=== PATIENT | female | born 1945 | race Caucasian/White ===

== ENCOUNTER 2024-05-03 09:50 | Inpatient (IN) | payer MEDICARE, OTHER, SELFPAY ==
[2024-05-03] VITALS (17 sets, daily range): BP systolic 107–154; BP diastolic 60–74; PULSE 54–118; RESP 18–29; TEMP 36.3–36.8; O2SAT 93–100
--- NOTE | ~2024-05-03 | CT_ITS ---
CT diagnostic chest wo [facility] Ordering provider: Sukhjinder Cruz MD History: 78 years Female with . chf, effusions? . Comparison: None. Technique: CT chest without IV contrast.Radiation reduction technique utilized. DLP is 514.92 mGy. FINDINGS: VISUALIZED THORACIC INLET: Normal. MEDIASTINUM: Aorta/coronary arteries: Mild atheromatous disease. The ascending aorta measures 3.5 cm. Heart/other: The heart is slightly enlarged. Lymph nodes: No mediastinal or hilar adenopathy. LUNGS: Dependent atelectatic changes. Minimal left pleural effusion. Narrowing of the distal trachea and main bronchi is noted. No pulmonary nodules or masses. No pneumothorax. VISUALIZED UPPER ABDOMEN: Sliding hiatus hernia.0 Otherwise, the visualized upper abdomen is normal. MUSCULOSKELETAL: Soft tissues: The superficial soft tissues are normal. Bones: Age appropriate degenerative changes of the spine. Levoscoliosis. IMPRESSION: 1. Minimal left pleural effusion with bilateral atelectatic changes more prominent on the left side. 2. Slight cardiomegaly. Reviewed, dictated and finalized at location A. IMPRESSION: 1. Minimal left pleural effusion with bilateral atelectatic changes more promi nent on the left side. 2. Slight cardiomegaly.
--- NOTE | ~2024-05-03 | XR_ITS ---
XR chest 2V DATE: 05/03/2024 10:20 INDICATION: Shortness of breath. History of COPD. TECHNIQUE: AP and lateral views COMPARISON: None FINDINGS: Cardiomegaly. Aortic calcification. Abdominal aortic calcification. Bilateral lower lung infiltrate and/or atelectasis, left greater than right. Mild pulmonary vascular congestion. No apparent pleural effusion. Osteopenia. Bilateral rotator cuff atrophy. White and screws along the proximal left humerus from old fracture. S coliosis and degenerative changes of the thoracic spine. IMPRESSION: Bilateral lower lung infiltrates and/or atelectasis Cardiomegaly, aortic atherosclerosis Reviewed, dictated and finalized at location A.
--- NOTE | ~2024-05-03 | XR_ITS ---
EXAMINATION: XR chest 1V portable DATE: 05/11/2024 12:29 INDICATION: Congestive heart failure TECHNIQUE: frontal view of the chest was obtained. COMPARISON: Chest radiograph dated 05/03/[address] dated 05/07/2024 FINDINGS: Again seen are linear and bandlike opacities in the bilateral lower lung zones consistent with atelec tasis. New mild increased interstitial pattern in the lower lungs suggesting superimposed mild pulmon neel edema. No pneumothorax or definitive pleural effusion. Cardiomegaly. S-shaped thoracolumbar scoli osis with severe spondylosis. Plain screw fixation for old healed fracture the proximal left humerus. IMPRESSION: 1. Persistent discoid atelectasis in bilateral lower lungs with new increased interstitial pattern co nsistent with mild pulmonary edema. 2. Cardiomegaly. Reviewed, dictated and finalized at location A. IMPRESSION: 1. Persistent discoid atelectasis in bilateral lower lungs with new increased i nterstitial pattern consistent with mild pulmonary edema. 2. Cardiomegaly.
--- NOTE | 2024-05-03 09:58 | ECG_ITS ---
Test Date: 2024-05-03 10:01:37 Measurements Intervals [place] Rate: 66 P: 69 [place]: 121 QRS: -41 QRSD: 145 T: 86 QT: 448 QTc: 470 Interpretive Statements SINUS RHYTHM VENTRICULAR PREEXCITATION/WPW No previous ECG available for comparison Electronically Signed On 05-04-2024 12:54:44 CDT by Jorge Bey M.D.
[2024-05-03 10:08] LABS: Basophils Percent Auto 0.5 % (0.2-1.2); Eosinophils Absolute Auto 0.1 K/mm3 (0-0.3); Eosinophils Percent Auto 0.9 % (0-4.4); Hematocrit 41.8 % (37.0-47.0); Hemoglobin 12.6 g/dL (12.0-15.0); Immature Granulocyte Absolute 0.05 K/mm3 (0.00-0.031); Immature Granulocyte Percent A 0.9 % (0-0.5); Lymphocytes Percent Auto 26.5 % (18.3-44.2); Mean Corpuscular HGB Conc 30.1 g/dl (32-36); Mean Corpuscular Hemoglobin 29.3 pg (26-34); Mean Corpuscular Volume 97.2 fl (80-100); Mean Platelet Volume 11.3 fl (7.4-10.4); Monocytes Absolute Auto 0.5 K/mm3 (0.1-0.6); Neutrophils Absolute Auto 3.5 K/mm3 (1.3-6.7); Neutrophils Percent Auto 62.2 % (45.5-73.1); Platelet Count Result 151 k/mm3 (150-375); Red Cell Distribution Width 14.1 % (11.5-14.5); White Blood Count 5.7 K/mm3 (4.5-10.0)
--- NOTE | 2024-05-03 10:18 | ECG_ITS ---
Test Date: 2024-05-03 10:26:03 Measurements Intervals [place] Rate: 61 P: 62 [place]: 116 QRS: -43 QRSD: 143 T: 81 QT: 460 QTc: 464 Interpretive Statements SINUS RHYTHM WITH SHORT MD INTERVAL ventricular pre-excitation MARKED LEFT AXIS DEVIATION [QRS AXIS < -30] INTRAVENTRICULAR CONDUCTION DELAY [130+ ms QRS DURATION] Compared to ECG 05/03/2024 10:01:37 no change compared to prior EKG Electronically Signed On 05-04-2024 12:55:45 CDT by Jorge Bey M.D.
[2024-05-03 10:21] LABS: INR 1.6
[2024-05-03 10:22] LABS: Partial Thromboplastin Time 30.4 Seconds (22.3-36.8)
[2024-05-03 10:26] LABS: Alanine Aminotransferase 15 U/L (6-35); Albumin Level 3.9 g/dL (3.5-5.1); Alkaline Phosphatase 85 U/L (38-126); Anion Gap 5 mmol/L (4-12); Aspartate Amino Transferase 36 U/L (14-36); Bilirubin,Total 0.9 mg/dL (0.2-1.3); Blood Urea Nitrogen 28 mg/dL (7-17); Calcium 9.1 mg/dL (8.4-10.2); Carbon Dioxide 28 mmol/L (22-30); Chloride 114 mmol/L (98-107); Estimated CRCL calculation 19 ml/min; Estimated Glomerular Filt Rate 18; Glucose 113 mg/dL (65-110); Potassium 4.6 mmol/L (3.4-5.0); Sodium 147 mmol/L (137-145)
[2024-05-03 11:14] LABS: Appearance Urine Cloudy (Clear); Bacteria Urine None Seen /hpf; Bilirubin Urine Negative (Negative); Blood Urine 2+ (Negative); Color Urine Yellow (Yellow); Glucose Urine UA 2+ mg/dL (Negative); Ketones Urine Trace mg/dL (Negative); Leukocyte Esterase Ur Negative LEU/UL (Negative); Mucus Urine Present /lpf; Need Manual Microscopic Reviewed; Nitrate Urine Negative (Negative); Non Pathogenic Casts >20; Protein Urine 4+ mg/dL (Negative); RBC Urine 0-2 /hpf (0-2); Squamous Epithelial Cell Urine Occasional /hpf (Few); WBC Urine 0-5 /hpf (0-3); pH Urine 6.5 (5.0-9.0)
[2024-05-03 11:16] LABS: Add Urine Microscopic? YES
[2024-05-03 12:35] LABS: Alveolar/Arterial O2 Gradient 71.6 mmHg; Base Excess ABG -1.9 mEq/l (+/-2.0); Fractional Inspired Oxygen 30 %; HCO3 ABG 26.2 mEq/l (22.0-26.0); Methemoglobin ABG 0.2 %THb (0-1.5); Oxygen Content ABG 16.8 %vol (16.0-22.0); Oxygen Saturation ABG 91.7 % (95.0-100.0); PO2 ABG 71.8 mmHg (80.0-100.0); PO2 FiO2 Ratio Arterial Blood 2.39 %; Reduced Hemoglobin 6.8 %THb (0-5.0)
[2024-05-03 12:36] LABS: Device NASAL CANNULA; Site Drawn RIGHT BRACHIAL; pH ABG 7.258 (7.350-7.450)
--- NOTE | 2024-05-03 12:56 | ED.SOB ---
HPI - SOB/Dyspnea General Chief Complaint: Shortness of Breath/Dyspnea Stated Complaint: sob Time Seen by Provider: 05/03/24 10:00 History of Present Illness HPI Narrative: patient is a 78-year-old female who presents ER with shortness of breath. Worsening over last couple days. Improved with nebulizer treatment by EMS. Denies fevers or chills or sweat. No productive cough. Has history of COPD. Has been reports patient recently had a UTI and was treated for, however he is concerned that she is not improving because she has been having hallucinations at home and seeing people who were not there. Patient is not currently seeing anything other than the actual people in the room. She does report that she has been more sleepy and foggy lately. reports she has been sleeping 16 hours a day. Related Data Allergies Allergy/AdvReac Type Severity Reaction Status Date / Time Penicillins Allergy Unknown Verified 03/03/09 12:16 Review of Systems Review of Systems: All systems reviewed & are unremarkable except as noted in HPI and below Constitutional: Constitutional: Denies chills, Reports fatigue and Denies fever(s) ENT: Reports system reviewed and no additional complaints, except as documented Cardiovascular: Cardiovascular: Reports no additional cardiovascular complaints Respiratory: Respiratory: Denies chest congestion, Denies cough, Reports dyspnea and Denies wheezing Gastrointestinal: Gastrointestinal: Reports no additional gastrointestinal complaints Musculoskeletal: Musculoskeletal: Reports no additional musculoskeletal complaints [facility] Past Medical History Medical History (Updated 05/03/24 @ 14:08 by Selwyn Enamorado MD) Chronic kidney disease COPD (chronic obstructive pulmonary disease) CVA (cerebral vascular accident) GERD (gastroesophageal reflux disease) Hyperlipidemia Hypertension Surgical History Surgical History (Updated 05/03/24 @ 13:02 by Selwyn Enamorado MD) H/O shoulder surgery Exam Narrative: GENERAL: chronically ill-appearing, obese, and in no acute distress. HEAD: Normocephalic, atraumatic. ENT: Mucous membranes moist. CHEST: Clear to auscultation. No respiratory distress. HEART: Regular rate and rhythm. Normal peripheral pulses. ABDOMEN: Soft, nontender, nondistended. EXTREMITIES: Normal range of motion. No edema. SKIN: Warm, dry, no rash. NEURO: Alert and oriented x3. PSYCH: Normal mood and affect. Course Course Emergency Course: patient will be admitted hospital for hypercapnia. Patient hypoxic when sleeping down to 82%. She easily awakens with being shaken and answers questions appropriately. Vital Signs Vital signs: Vital Signs Temperature 97.6 F 05/03/24 09:51 Pulse Rate 65 05/03/24 09:51 Respiratory Rate 19 05/03/24 09:51 Blood Pressure 125/74 05/03/24 09:51 Pulse Oximetry 100 05/03/24 09:51 Oxygen Delivery Room Air 05/03/24 09:51 Temperature 97.6 F 05/03/24 09:51 Pulse Rate 65 05/03/24 12:57 Respiratory Rate 18 05/03/24 12:57 Blood Pressure 133/74 05/03/24 12:57 Pulse Oximetry 99 05/03/24 12:57 Oxygen Delivery BiPAP 05/03/24 12:45 Oxygen Flow Rate 3 05/03/24 12:35 MDM - SOB/Dyspnea Lab Data 05/03/24 10:02 05/03/24 10:02 Labs: Lab Results 05/03/24 05/03/24 05/03/24 Range/Units 10:02 10:42 12:30 WBC 5.7 (4.5-10.0) K/mm3 RBC 4.30 (4.2-5.4) M/mm3 Hgb 12.6 (12.0-15.0) g/dL Hct 41.8 (37.0-47.0) % MCV 97.2 (80-100) fl MCH 29.3 (26-34) pg MCHC 30.1 L (32-36) g/dl RDW 14.1 (11.5-14.5) % Plt Count 151 (150-375) k/mm3 MPV 11.3 H (7.4-10.4) fl Immature Gran % (Auto) 0.9 H (0-0.5) % Neut % (Auto) 62.2 (45.5-73.1) % Lymph % (Auto) 26.5 (18.3-44.2) % [place] % (Auto) 9.0 H (2.6-8.5) % Eos % (Auto) 0.9 (0-4.4) % Baso % (Auto) 0.5 (0.2-1.2) % Lymph # (Auto) 1.50 (0.9-3.2) K/mm3 [place]
--- NOTE | 2024-05-03 15:23 | PM.IMHP ---
H&P: HPI History of Present Illness Date/Time: 05/03/24 17:00 Chief Complaint: Shortness of breath. Narrative: This is a 78-year-old female with chronic obstructive pulmonary disease, hypertension, hyperlipidemia, chronic kidney disease, stroke, and gastroesophageal reflux disease who presented to the emergency department via EMS from home for evaluation of shortness of breath. She typically gets her care at [facility] and there are no records at this facility for review. The patient provides some history however she is currently on BiPAP. provides additional information. She was recently treated for urinary tract infection however things that it may not have been treated appropriately as the patient has been having hallucinations at home, seeing people who were not there. She has seemed ?foggy lately? and has been sleeping upwards of 16 hours a day. The last couple of days she has seemed to be a bit short of breath from baseline. EMS was summoned and she was administered DuoNeb on the way to the hospital. At the time my evaluation the patient is alert and oriented. She is tolerating the BiPAP mask reluctantly. She denies fever, chills, sweats, headache, neck ache, cold and flu symptoms, chest pain, pleuritic pain, palpitations, abdominal pain, vomiting, and diarrhea. She does still have some mild dysuria and recently finished antibiotics for a UTI. She has not had any falls or head trauma. In the ED: She was afebrile on arrival with stable blood pressures. Initial ABG showed a pH of 7.258, pCO2 60.0, PO2 71.8, HC03 26.2. She has since been placed on BiPAP. Labs were significant for a sodium of 147, potassium 4.6 (specimen mildly hemolyzed), BUN 20, creatinine 2.60, glucose 113. Urine was positive for 4+ protein, 2+ glucose, trace ketones, 2+ blood. Chest x-ray showed bilateral lower lung infiltrates and/or atelectasis, cardiomegaly, and aortic atherosclerosis. She is being admitted in this setting for further treatment. Review of Systems Review of Systems: 12 systems were reviewed and are negative except for as per HPI. [facility] Past Medical History Medical History (Updated 05/04/24 @ 02:27 by Yari Vitale PA-C) Cerebrovascular accident Chronic kidney disease Chronic obstructive pulmonary disease Deep venous thrombosis Gastroesophageal reflux disease Hyperlipidemia Hypertension Obstructive sleep apnea Does not use CPAP. Surgical History Surgical History (Updated 05/04/24 @ 02:26 by Yari Vitale PA-C) History of hysterectomy History of shoulder surgery Family History Family History Mother Dementia Father Myocardial disease Social History Social History Social History: Surrogate medical decision maker: Rodríguez Cardozobob, spouse. Code status: Full code. Smoking status: Never smoker Alcohol intake: never Do You Feel Safe in your Home?: Yes Lack of Transportation: No Lack of Food: Never True Current Housing: I Have Housing Concerned About Future Housing: No Difficulty Paying Gas/Electric Bills: No Difficulty Paying for Meds: No Currently Unemployed: No Education: High School Diploma/GED Difficulty w/ Childcare or Family Care: No Spiritual care concerns: No Meds Home Medications and Allergies Home Medications Medication Instructions Recorded Confirmed Type allopurinol 100 mg tablet 100 mg PO DAILY 05/03/24 05/03/24 History atorvastatin 80 mg tablet 80 mg PO DAILY 05/03/24 05/03/24 History baclofen 10 mg tablet 10 mg PO TID 05/03/24 05/03/24 History calcitriol 0.25 mcg capsule 0.25 mcg PO BID 05/03/24 05/03/24 History ergocalciferol (vitamin D2) 1,250 50,000 unit PO MONTHLY 05/03/24 05/03/24 History mcg (50,000 unit) capsule furosemide 20 mg tablet 20 mg PO DAILY 05/03/24 05/03/24 History gabapentin 300 mg capsule 300 mg PO
--- NOTE | 2024-05-03 16:05 | ADMGEN ---
This patient, Adriana Arechiga, was admitted to IMU Room 202-01. Patient/family oriented to hospital policies and general routines including ID bracelet, bed and alarms, visiting hours, pain management, procedures, bathroom and other care routines, personal items, smoking policy, room service/diet, and visiting hours. Information on how to activate the Rapid Response Team has been discussed. Patient/Family are encouraged to report perceived risks to care and to ask questions if they do not understand what they are told or what they should do.
[2024-05-03 16:16] LABS: Alveolar/Arterial O2 Gradient 28.3 mmHg; Base Excess ABG -1.3 mEq/l (+/-2.0); Fractional Inspired Oxygen 28 %; Oxygen Content ABG 17.7 %vol (16.0-22.0); Oxygen Saturation ABG 96.4 % (95.0-100.0); Oxyhemoglobin 96.3 % THb (90.0-100.0); PO2 ABG 98.7 mmHg (80.0-100.0); PO2 FiO2 Ratio Arterial Blood 3.52 %; Reduced Hemoglobin 2.7 %THb (0-5.0)
[2024-05-03 16:25] LABS: Device BIPAP; Modified Allen's Test Pass; PCO2 ABG 61.6 mmHg (35.0-45.0); Site Drawn RIGHT BRACHIAL; pH ABG 7.259 (7.350-7.450)
[2024-05-03 16:26] LABS: Expiratory Pressure 8 cmH2O
[2024-05-03 16:27] LABS: Inspiratory Pressure 16 cmH2O
[2024-05-04] VITALS (24 sets, daily range): BP systolic 82–152; BP diastolic 54–79; PULSE 59–123; RESP 16–36; TEMP 36.1–37.4; O2SAT 97–100
[2024-05-04] MEDS: SODIUM CHLORIDE 0.9% IV 1,000 ML 100 ML IV CONT (01:19)
[2024-05-04 01:24] LABS: Alveolar/Arterial O2 Gradient 53.4 mmHg; Base Excess ABG -0.8 mEq/l (+/-2.0); Device NON-INVASIVE VENT; Fractional Inspired Oxygen 28 %; HCO3 ABG 26.2 mEq/l (22.0-26.0); Oxygen Content ABG 17.6 %vol (16.0-22.0); Oxygen Saturation ABG 95.1 % (95.0-100.0); Oxyhemoglobin 95.2 % THb (90.0-100.0); PCO2 ABG 53.5 mmHg (35.0-45.0); PO2 ABG 83.1 mmHg (80.0-100.0); PO2 FiO2 Ratio Arterial Blood 2.97 %; Reduced Hemoglobin 3.8 %THb (0-5.0); Site Drawn RIGHT BRACHIAL; Total Hemoglobin 13.1 g/dL (12.0-18.0); pH ABG 7.308 (7.350-7.450)
[2024-05-04 01:25] LABS: Non-Invasive Expiratory Pressure 8 CMH2O; Non-Invasive Inspiratory Pressure 16 CMH2O; Non-Invasive Vent Rate 24 /MIN
[2024-05-04 03:33] LABS: Anion Gap 8 mmol/L (4-12); Blood Urea Nitrogen 23 mg/dL (7-17); Calcium 8.9 mg/dL (8.4-10.2); Carbon Dioxide 24 mmol/L (22-30); Chloride 116 mmol/L (98-107); Estimated CRCL calculation 21 ml/min; Estimated Glomerular Filt Rate 21; Glucose 89 mg/dL (65-110); Sodium 148 mmol/L (137-145)
[2024-05-04] MEDS: ATORVASTATIN 40 MG TABLET 80 MG PO (08:43)
[2024-05-04] MEDS: GABAPENTIN 300 MG CAPSULE PO (08:43)
[2024-05-04] MEDS: allopurinoL 100 MG TABLET PO (08:44)
[2024-05-04] MEDS: METOPROLOL SUCCINATE EXT REL 50 MG TABCR PO (08:44)
[2024-05-04] MEDS: PANTOPRAZOLE 40 MG TABLET PO (08:44)
[2024-05-04] MEDS: LOSARTAN POTASSIUM 25 MG TABLET PO (08:44)
[2024-05-04] MEDS: IPRATROPIUM 0.5 MG/ALBUTEROL SULFATE 2.5 MG AMPUL.NEB 3 ML INHALATION ×3 (08:47→19:26)
--- NOTE | 2024-05-04 09:16 | PM.IMPN ---
Progress Note: A&P Assessment and Plan (1) Obstructive sleep apnea: Code(s): G47.33 - Obstructive sleep apnea (adult) (pediatric) Status: Acute (2) Hypertension: Code(s): I10 - Essential (primary) hypertension Status: Acute (3) Chronic kidney disease: Code(s): N18.9 - Chronic kidney disease, unspecified Status: Acute (4) Mild dehydration: Code(s): E86.0 - Dehydration Status: Acute (5) Hypernatremia: Code(s): E87.0 - Hyperosmolality and hypernatremia Status: Acute (6) Acute respiratory failure with hypercapnia: Code(s): J96.02 - Acute respiratory failure with hypercapnia Status: Acute (7) Chronic obstructive pulmonary disease: Code(s): J44.9 - Chronic obstructive pulmonary disease, unspecified Status: Acute Plan This is a 78-year-old female with PMH obesity, COPD, hypertension, hyperlipidemia, history of stroke without residual deficits (on xarelto), GERD, history of DVT, CKD unknown stage. Patient typically gets her care at [facility]. She was recently treated for UTI. reports she has appeared of and foggy sitting upwards of 16 hours a day. 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 EMS summoned and patient administer DuoNeb on the way to hospital. Eventually placed on BiPAP and admitted on 05/03/2024 for acute hypoxic and hypercarbic respiratory failure. # acute hypoxic/hyper cardiac respiratory failure/COPD/respiratory acidosis/RACHELLE noncompliant with CPAP -admitted on BiPAP. Transitioned to 2 L nasal cannula on morning of 05/04/2024. Continue to monitor. Continue scheduled DuoNebs. -on admission 05/03 pCO2 61.6 --> 53.5. Respiratory failure likely progressive due to noncompliance with CPAP with COPD, however no active wheezing. No steroids administered. -Check quad viral screen. Has a dry cough -patient is currently refusing CPAP. She does not use at home because she does not like how it feels. Compliance encouraged. ordered QHS. - reports she was altered at home. Likely secondary to CO2 narcosis. Patient is now A&O x3. -globally weak. Consult PT OT. # hypernatremia/dehydration -due to poor oral intake -147 on admission --> 148 -change isotonic saline to half-normal saline. BMP at 3:00 p.m. # CKD unknown stage -2.6 on admission --> 2.3 -patient making urine. Continue to cycle renal function. Continue fluid resuscitation. -renally dose medications and avoid nephrotoxins. She takes furosemide at home. Will hold this. # essential hypertension -currently at goal. -continue LINE SERVICER medications metoprolol and losartan. Chronic Conditions -history of stroke: Patient reports taking Xarelto for this. Continue atorvastatin 80 mg p.o. q.day -hyperlipidemia: Continue LINE SERVICER status -history of DVT: Continue PT Xarelto 20 mg p.o. q.day -GERD: Continue PT at [facility] F/E/N: Half-normal saline, heart healthy diet GI prophylaxis: Continue [employer] SERV[employer] [facility] DVT prophylaxis: Continue PT Xarelto Lines: Peripheral IV Code Status: Patient wishes to be full code Dispo: Stable on telemetry floor. She is now on nasal cannula. Transfer to medical floor telemetry Medication reconciliation obtained via the following: Verbal confirmation of medications Social Drivers of Health -Living arrangements: Lives at home with -Patient was screened for food insecurity, housing instability, transportation needs, utility difficulties, and interpersonal safety. Social work and consulted, no needs identified. Agents of Abuse -Illicit drug abuse: Denies -ETOH abuse: Denies -Tobacco/nicotine: Denies -Energy drinks: Denies Heart Failure MIPS: Does not have heart failure Note to the patient: The 21st Century Cures Act makes medical notes like these available to patients in the interest of transparency. Please be advised this is a medic
[2024-05-04] MEDS: SODIUM CHLORIDE 0.45% 1,000 ML 100 ML IV CONT (09:44)
[2024-05-04 10:30] LABS: Influenza A QL RT-PCR Negative (Negative); Influenza B QL RT-PCR Negative (Negative); RSV RNA, RT-PCR Negative (Negative); SARS-CoV-2 RNA PCR Negative (Negative)
[2024-05-04 16:14] LABS: Anion Gap 6 mmol/L (4-12); Blood Urea Nitrogen 21 mg/dL (7-17); Calcium 8.8 mg/dL (8.4-10.2); Carbon Dioxide 25 mmol/L (22-30); Chloride 112 mmol/L (98-107); Estimated CRCL calculation 23 ml/min; Estimated Glomerular Filt Rate 23; Glucose 108 mg/dL (65-110); Potassium 3.8 mmol/L (3.4-5.0); Sodium 143 mmol/L (137-145)
--- NOTE | 2024-05-04 16:22 | ECG_ITS ---
Test Date: 2024-05-04 16:26:56 Measurements Intervals [place] Rate: 125 P: 0 [place]: 0 QRS: -50 QRSD: 137 T: 130 QT: 326 QTc: 470 Interpretive Statements ATRIAL FIBRILLATION WITH RAPID VENTRICULAR RESPONSE INTRAVENTRICULAR CONDUCTION DELAY [130+ ms QRS DURATION] POSSIBLE LEFT VENTRICULAR HYPERTROPHY [VOLTAGE CRITERIA PLUS LAE OR QRS WIDENING] INTRAVENTRICULAR CONDUCTION DELAY ABNORMAL ECG Compared to ECG 05/03/2024 10:26:03 ATRIAL FIBRILLATION REPLACES SINUS RHYTHM Electronically Signed On 05-05-2024 15:06:58 CDT by Sathish Larsen M.D.
[2024-05-04 17:10] LABS: Hematocrit 41.2 % (37.0-47.0); Hemoglobin 11.9 g/dL (12.0-15.0); Mean Corpuscular HGB Conc 28.9 g/dl (32-36); Mean Corpuscular Hemoglobin 29.9 pg (26-34); Mean Corpuscular Volume 103.5 fl (80-100); Mean Platelet Volume 11.8 fl (7.4-10.4); Platelet Count Result 146 k/mm3 (150-375); Red Blood Count 3.98 M/mm3 (4.2-5.4); Red Cell Distribution Width 13.9 % (11.5-14.5); White Blood Count 5.9 K/mm3 (4.5-10.0)
[2024-05-04 17:37] LABS: Magnesium 2.2 mg/dL (1.6-2.3)
[2024-05-04] MEDS: RIVAROXABAN 20 MG TABLET PO (17:39)
[2024-05-04 17:42] LABS: Troponin I 0.018 ng/mL (0.000-0.034)
[2024-05-04] MEDS: AMIODARONE 150 MG/D5W 100 ML 150 MG/100 ML BAG 600 MG IV CONT (18:48)
[2024-05-04] MEDS: AMIODARONE 360 MG/D5W 200 ML 360 MG/200 ML BAG 33.33 MG IV CONT (19:05)
--- NOTE | 2024-05-04 19:57 | ECG_ITS ---
Test Date: 2024-05-04 19:57:04 Measurements Intervals [place] Rate: 86 P: 106 [place]: 150 QRS: -44 QRSD: 122 T: 92 QT: 385 QTc: 461 Interpretive Statements SINUS RHYTHM WITH SINUS ARRHYTHMIA LEFT VENTRICULAR HYPERTROPHY AND ST-T CHANGE [VOLTAGE CRITERIA PLUS ST/T ABNORMALITY] INTERVENTRICULAR CONDUCTION DELAY Compared to ECG 05/04/2024 16:29:20 Atrial fibrillation no longer present Electronically Signed On 05-06-2024 11:40:17 CDT by Trinity Aguayo M.D.
--- NOTE | 2024-05-04 20:03 | ECG_ITS ---
Test Date: 2024-05-04 16:29:20 Measurements Intervals [place] Rate: 137 P: 0 [place]: 0 QRS: -50 QRSD: 138 T: 128 QT: 320 QTc: 484 Interpretive Statements ATRIAL FIBRILLATION WITH RAPID VENTRICULAR RESPONSE INTRAVENTRICULAR CONDUCTION DELAY [130+ ms QRS DURATION] POSSIBLE LEFT VENTRICULAR HYPERTROPHY [VOLTAGE CRITERIA PLUS LAE OR QRS WIDENING] INTRAVENTRICULAR CONDUCTION DELAY ABNORMAL ECG Compared to ECG 05/04/2024 16:26:56 No significant changes Electronically Signed On 05-05-2024 15:07:23 CDT by Sathish Larsen M.D.
[2024-05-05] VITALS (30 sets, daily range): BP systolic 107–138; BP diastolic 50–101; PULSE 64–94; RESP 18–36; TEMP 36.4–37.7; O2SAT 90–100
--- NOTE | 2024-05-05 | ECHO_ITS ---
Patient Info Name: Adriana Arechiga Age: 78 years : 1945 Gender: Female Ht: 66 in Wt: 197 lbs BSA: 2.07 m2 HR: 75 bpm BP: 113 / 57 mmHg Heart Rhythm: Sinus Rhythm Technical Quality: Fair Exam Date: 05/05/2024 11:16 AM Exam Location: Echo Lab Patient Status: Inpatient Admit Date: 05/03/2024 Staff Ordering Physician: Adrian Christianson MD Sales Superintendent: America Jackman RDCS Attending Provider: Kaur Rodriguez MD Referring Physician: Sammy RAMIREZ; Exam Type: CA echo doppler color flow Study Info Indications - AF, WPW Complete two-dimensional, color flow and Doppler transthoracic echocardiogram is performed with contrast to opacify the left ventricle and to improve the deliniation of the left ventricle endocardial borders. Contrast/Agitated Saline Contrast/Ag. Saline: Definity Amount: 3.00 ml Administered By: America Jackman RDCS Existing IV Access: Yes IV Access Condition: patent with no signs of infiltration Summary 1. Mild concentric left ventricular hypertrophy with hyperdynamic systolic function and grade 1 diastolic noncompliance. 2. No ischemic wall motion abnormality. 3. Trivial aortic regurgitation. 4. Mild tricuspid regurgitation, PA pressures are normal. Left Ventricle Left ventricular chamber dimension is normal. Left ventricular systolic function is hyperdynamic, estimated at >70%. There is mild concentric increased left ventricular wall thickness. The left ventricular diastolic function is grade I diastolic dysfunction. Right Ventricle Right ventricular chamber dimension is normal. Left Atria Left atrial chamber dimension is normal. Aortic Valve The aortic valve is normal. There is trace aortic valve regurgitation. Pulmonic Valve The pulmonic valve is not well visualized. Mitral Valve The mitral valve has normal leaflets. The mitral valve annulus is moderately calcified. Tricuspid Valve The tricuspid valve leaflets are normal. There is mild tricuspid valve regurgitation. No pulmonary hypertension, estimated pulmonary arterial systolic pressure is 54 mmHg. Pericardium/Pleural The pericardium appears normal. Aorta The aortic root size at the sinus of Valsalva is normal. Left Ventricular Outflow Tract Name Value Normal LVOT 2D LVOT Diameter 2.0 cm LVOT Doppler LVOT Peak Gradient 7 mmHg LVOT Mean Gradient 4 mmHg LVOT VTI 27 cm LVOT VTI/AV VTI Ratio 0.7 LVOT Stroke Volume 82 ml LVOT CO 5.2 l/min LVOT CI 2.5 l/min/m2 Pulmonic Valve Name Value Normal RVOT Doppler RVOT Peak Gradient 3 mmHg PV Doppler PV Peak Gradient 6 mmHg
[2024-05-05] MEDS: AMIODARONE 360 MG/D5W 200 ML 360 MG/200 ML BAG 16.67 MG IV CONT (01:20)
[2024-05-05] MEDS: IPRATROPIUM 0.5 MG/ALBUTEROL SULFATE 2.5 MG AMPUL.NEB 3 ML INHALATION ×2 (02:01→08:39)
[2024-05-05 03:50] LABS: Basophils Percent Auto 0.3 % (0.2-1.2); Eosinophils Percent Auto 0.3 % (0-4.4); Hematocrit 38.9 % (37.0-47.0); Hemoglobin 10.9 g/dL (12.0-15.0); Immature Granulocyte Absolute 0.03 K/mm3 (0.00-0.031); Immature Granulocyte Percent A 0.5 % (0-0.5); Lymphocytes Absolute Auto 0.92 K/mm3 (0.9-3.2); Lymphocytes Percent Auto 15.9 % (18.3-44.2); Mean Corpuscular Hemoglobin 28.8 pg (26-34); Mean Corpuscular Volume 102.9 fl (80-100); Mean Platelet Volume 10.4 fl (7.4-10.4); Monocytes Absolute Auto 0.5 K/mm3 (0.1-0.6); Monocytes Percent Auto 7.8 % (2.6-8.5); Neutrophils Absolute Auto 4.3 K/mm3 (1.3-6.7); Neutrophils Percent Auto 75.2 % (45.5-73.1); Platelet Count Result 116 k/mm3 (150-375); Red Blood Count 3.78 M/mm3 (4.2-5.4); Red Cell Distribution Width 13.9 % (11.5-14.5); White Blood Count 5.8 K/mm3 (4.5-10.0)
[2024-05-05 04:14] LABS: Platelet Estimate Decreased (Adequate)
[2024-05-05 04:15] LABS: Anisocytosis 1+; Hypochromasia 1+; Ovalocytes 1+; Schistocytes None Seen
[2024-05-05 04:20] LABS: Anion Gap 4 mmol/L (4-12); Blood Urea Nitrogen 20 mg/dL (7-17); Calcium 8.3 mg/dL (8.4-10.2); Carbon Dioxide 26 mmol/L (22-30); Chloride 111 mmol/L (98-107); Estimated CRCL calculation 23 ml/min; Estimated Glomerular Filt Rate 23; Glucose 112 mg/dL (65-110); Magnesium 2.3 mg/dL (1.6-2.3); Potassium 4.3 mmol/L (3.4-5.0); Sodium 141 mmol/L (137-145)
[2024-05-05] MEDS: ACETAMINOPHEN 325 MG TABLET 650 MG PO (06:57)
[2024-05-05] MEDS: GABAPENTIN 300 MG CAPSULE PO (10:14)
[2024-05-05] MEDS: METOPROLOL SUCCINATE EXT REL 50 MG TABCR PO (10:15)
[2024-05-05] MEDS: LOSARTAN POTASSIUM 25 MG TABLET PO (10:15)
[2024-05-05] MEDS: allopurinoL 100 MG TABLET PO (10:15)
[2024-05-05] MEDS: ATORVASTATIN 40 MG TABLET 80 MG PO (10:15)
[2024-05-05] MEDS: PANTOPRAZOLE 40 MG TABLET PO (10:15)
--- NOTE | 2024-05-05 10:26 | PM.CNCAR ---
Assessment and Plan Assessment and plan (1) Hypertension: Code(s): I10 - Essential (primary) hypertension Status: Acute Assessment and Plan: Continue metoprolol (2) Acute respiratory failure with hypercapnia: Code(s): J96.02 - Acute respiratory failure with hypercapnia Status: Acute Assessment and Plan: Resulting CO2 retention and altered mental status. Workup per hospitalist and pulmonology (3) Chronic obstructive pulmonary disease: Code(s): J44.9 - Chronic obstructive pulmonary disease, unspecified Status: Acute (4) Atrial fibrillation: Code(s): I48.91 - Unspecified atrial fibrillation Status: Acute Assessment and Plan: Back in sinus rhythm at this point. Patient should remain on anticoagulation the form of Xarelto. She is being treated with Xarelto for DVTs. Regarding her arrhythmia, will stop her amiodarone given her WPW history. She does have a delta wave on initial ECG and a short GA interval consistent with continued pre-excitation. Continue metoprolol succinate. Atrial fibrillation may be brought on by electrolyte imbalance and recent systemic illness/CO2 retention. Recommend outpatient electrophysiology evaluation. If atrial fibrillation becomes a problem in the future, consider direct cardioversion. 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 History of Present Illness History of Present Illness Consult date/time: 05/05/24 10:26 Requesting physician: Kaur Rodriguez MD Consult reason: Other (Tachy arrhythmia) Reason For Visit: hypercapnic encephalopathy,copd Narrative: Reason for consultation: Tachyarrhythmia Date of service 05/05/2024 Requesting provider: Dr. Rodriguez History: Patient is a 78-year-old female who came in because of altered mental state. She had been hallucinating and had decreased level consciousness. She came to the hospital was found to be acidotic with CO2 levels in the 60s. She was started on BiPAP with improvement of her mental status. While on telemetry, patient did go into a wide complex tachycardia which seem to be irregular. 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 Loan Lewis at this point. A initial EKG does have some concern of pre-excitation. Rhythm appears to be atrial fibrillation with rapid ventricular response. Dr. Diane Boyd start the patient on amiodarone and she has since maintained sinus rhythm. She does have some shortness of breath with mild activity even doing things such as walking around the house. She does also have some lower extremity edema. She states that this shortness of breath and edema are not new. She denies any chest pain, syncope, presyncope, paroxysmal nocturnal dyspnea, orthopnea, palpitations. Review of Systems Review of Systems: All systems reviewed & are unremarkable except as noted in HPI and below Constitutional: Constitutional: Denies body ache(s) Eyes: Eyes: Denies blurry vision ENT: Reports Normal hearing present Cardiovascular: Cardiovascular: Denies chest pain and Reports leg edema Respiratory: Respiratory: Reports dyspnea Gastrointestinal: Gastrointestinal: Denies abdominal pain Genitourinary: Genitourinary: Denies hematuria Musculoskeletal: Musculoskeletal: Denies back pain Integumentary/Breasts: Skin/Breast: Denies rash and Denies skin pain Neurologic: Denies Abnormal speech present Psychiatric: Psychiatric: Reports confusion Endocrine: Endocrine: Denies fatigue Hematologic/Lymphatic: Hematologic/Lymphatic: Denies easy bleeding Allergic/Immunologic: Allergic/Immunologic: Denies GI upset with certain foods PMFSH Past Medical History Medical History (Updated 05/05/24 @ 10:37 by Adrian Christianson MD) A
[2024-05-05] MEDS: PERFLUTREN LIPID MICROSPHERES 1.5 ML VIAL DILUTED TO 10 ML TOTAL VOLUME IV PUSH (11:20)
--- NOTE | 2024-05-05 11:49 | PM.IMPN ---
Progress Note: A&P Assessment and Plan (1) Obstructive sleep apnea: Code(s): G47.33 - Obstructive sleep apnea (adult) (pediatric) Status: Acute (2) Hypertension: Code(s): I10 - Essential (primary) hypertension Status: Acute (3) Chronic kidney disease: Code(s): N18.9 - Chronic kidney disease, unspecified Status: Acute (4) Mild dehydration: Code(s): E86.0 - Dehydration Status: Acute (5) Hypernatremia: Code(s): E87.0 - Hyperosmolality and hypernatremia Status: Acute (6) Acute respiratory failure with hypercapnia: Code(s): J96.02 - Acute respiratory failure with hypercapnia Status: Acute (7) Chronic obstructive pulmonary disease: Code(s): J44.9 - Chronic obstructive pulmonary disease, unspecified Status: Acute Plan This is a 78-year-old female with PMH obesity, COPD, hypertension, hyperlipidemia, WPW, history of stroke without residual deficits (on xarelto), GERD, history of DVT, CKD unknown stage. Patient typically gets her care at [facility]. She was recently treated for UTI. reports she has appeared of and foggy sitting upwards of 16 hours a day. Past few days PHYSICAL THER patient appears short of breath. EMS summoned and patient administer DuoNeb on the way to hospital. Eventually placed on BiPAP and admitted on 05/03/2024 for acute hypoxic and hypercarbic respiratory failure. # acute hypoxic/hyper cardiac respiratory failure/COPD/respiratory acidosis/RACHELLE noncompliant with CPAP -admitted on BiPAP. Transitioned to 2 L nasal cannula on morning of 05/04/2024. Now on room air on 05/05/2024. Continue to monitor. DuoNebs switch to ipratropium nebs on 05/05/2024 due to tachycardia. -on admission 05/03 pCO2 61.6 --> 53.5. Respiratory failure likely progressive due to noncompliance with CPAP with COPD, however no active wheezing. No steroids administered. -quad viral screen negative. -patient refuse CPAP at home previously. She continues to state that she hates it she did wear it overnight in the hospital. Multiple times encourage compliance. Also discussed with her . knows she is very difficult to be compliant with this. - reports she was altered at home. Likely secondary to CO2 narcosis. Patient is now A&O x3. -globally weak. Consult PT OT. # hypernatremia/dehydration -due to poor oral intake -resolved status post fluid resuscitation. # CKD unknown stage -2.6 on admission --> 2.3 --> 2.1 -patient making urine. Continue to cycle renal function. Status post fluid resuscitation. Likely has a serum creatinine around low 2s. -renally dose medications and avoid nephrotoxins. PHYSICAL THER takes furosemide. Currently holding due to dehydration. # essential hypertension -currently at goal. -continue PHYSICAL THER medications metoprolol and losartan. # WPW/preexcitation syndrome/a fib -patient follows with Dr. Lewis at [facility]. Obtain last note from the office and there is no significant notation on the WPW. For, patient reports she had an ablation previously which failed. However, patient has been on metoprolol home. She likely had and an aggravation of this due to her RACHELLE noncompliance and hypercapnia and hypoxia on admission. admission EKG with delta wave and short DC/long QRS. On 05/05 the patient entered wide QRS irregular rate in the 130s to 150s. Started on amiodraone and pt converted. - 05/06 Dr. Christianson consultation appreciated. d/c amiodarone. cont metoprolol. cont to monitor. she should f/u with EP outpatient. pending repeat troponin (1st normal) and surface echo. - cont xarelto. a recurrent a fib rhythm should prompt consideration for direct cardioversion. -keep potassium greater than 4 and magnesium greater than 2. Chronic Conditions -history of stroke: Patient reports taking Xarelto for this. Continue atorvastatin 80 mg p.o. q.day -hyperlipidemia: Continue PHYSICAL THER statin -history o
[2024-05-05 12:05] LABS: Troponin I 0.107 ng/mL (0.000-0.034)
--- NOTE | 2024-05-05 12:20 | IVDEFINITY ---
Prior to administration of IV Definity the patient was educated on the risks and benefits of the imaging enhancing agent including potential adverse side effects. The patient verbalized understanding. Allergies were verified. No exclusion criteria were identified and at least one of the following inclusion criteria were met: 1) physician request, 2) patient technically difficult to image (per the [place] [employer] guidelines of two or more segments not discernable within the apical view), or 3) questionable left ventricular function. ?
[2024-05-05] MEDS: IPRATROPIUM BR 0.02% INH SOLN 0.5 MG/2.5 ML VIAL INHALATION ×2 (14:12→20:35)
[2024-05-05] MEDS: RIVAROXABAN 20 MG TABLET PO (19:36)
[2024-05-06] VITALS (28 sets, daily range): BP systolic 115–133; BP diastolic 50–69; PULSE 65–85; RESP 18–25; TEMP 36.4–37.2; O2SAT 24–100
[2024-05-06] MEDS: IPRATROPIUM BR 0.02% INH SOLN 0.5 MG/2.5 ML VIAL INHALATION ×4 (01:47→19:15)
[2024-05-06 05:20] LABS: Hematocrit 37.1 % (37.0-47.0); Hemoglobin 11.2 g/dL (12.0-15.0); Mean Corpuscular HGB Conc 30.2 g/dl (32-36); Mean Corpuscular Hemoglobin 28.7 pg (26-34); Mean Corpuscular Volume 95.1 fl (80-100); Mean Platelet Volume 11.2 fl (7.4-10.4); Platelet Count Result 136 k/mm3 (150-375); White Blood Count 5.5 K/mm3 (4.5-10.0)
[2024-05-06 05:37] LABS: Anion Gap 3 mmol/L (4-12); Blood Urea Nitrogen 19 mg/dL (7-17); Calcium 9.1 mg/dL (8.4-10.2); Carbon Dioxide 31 mmol/L (22-30); Chloride 111 mmol/L (98-107); Estimated CRCL calculation 22 ml/min; Estimated Glomerular Filt Rate 22; Glucose 97 mg/dL (65-110); Magnesium 2.4 mg/dL (1.6-2.3); Potassium 3.4 mmol/L (3.4-5.0); Sodium 145 mmol/L (137-145)
[2024-05-06] MEDS: ONDANSETRON INJ 4 MG/2 ML VIAL IV PUSH (09:20)
[2024-05-06] MEDS: LOSARTAN POTASSIUM 25 MG TABLET PO (09:43)
[2024-05-06] MEDS: allopurinoL 100 MG TABLET PO (09:43)
[2024-05-06] MEDS: PANTOPRAZOLE 40 MG TABLET PO (09:43)
[2024-05-06] MEDS: METOPROLOL SUCCINATE EXT REL 50 MG TABCR PO (09:43)
[2024-05-06] MEDS: ATORVASTATIN 40 MG TABLET 80 MG PO (09:43)
[2024-05-06] MEDS: GABAPENTIN 300 MG CAPSULE PO (09:44)
--- NOTE | 2024-05-06 10:29 | PM.PNCARD ---
Progress Note: A&P Assessment and Plan (1) Atrial fibrillation: Code(s): I48.91 - Unspecified atrial fibrillation Status: Acute Assessment and Plan: Back in sinus rhythm at this point. Patient should remain on anticoagulation in the form of Xarelto. She is being treated with Xarelto for DVTs. Regarding her arrhythmia, will stop her Amiodarone given her WPW history. She does have a delta wave on initial ECG and a short WI interval consistent with continued pre-excitation. Continue metoprolol succinate. Atrial fibrillation may be brought on by electrolyte imbalance and recent systemic illness/CO2 retention. Recommend outpatient electrophysiology evaluation. If atrial fibrillation becomes a problem in the future, consider direct cardioversion. (2) WPW (Eosoh-Tricbubtt-Drvvt syndrome): Code(s): I45.6 - Pre-excitation syndrome Status: Acute Assessment and Plan: History of ablation. As above (3) Hypertension: Code(s): I10 - Essential (primary) hypertension Status: Acute Assessment and Plan: Continue Metoprolol and Losartan (4) Acute respiratory failure with hypercapnia: Code(s): J96.02 - Acute respiratory failure with hypercapnia Status: Acute Assessment and Plan: Resulting CO2 retention and altered mental status. Workup per hospitalist and pulmonology (5) Chronic obstructive pulmonary disease: Code(s): J44.9 - Chronic obstructive pulmonary disease, unspecified Status: Acute Plan Okay to discharge home from my standpoint. Outpatient follow up with patient's primary [employer], Dr. Lily Lewis. Recommendations and plan discussed with Hospitalist. Subjective Date/time seen: 05/06/24 10:29 Interval history: Reason for visit: Atrial fibrillation HPI: Patient is a 78-year-old female who came in because of altered mental state. She had been hallucinating and had decreased level consciousness. She came to the hospital was found to be acidotic with CO2 levels in the 60s. She was started on BiPAP with improvement of her mental status. While on telemetry, patient did go into a wide complex tachycardia which seem to be irregular. 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 Loan Lewis at this point. A initial EKG does have some concern of pre-excitation. Rhythm appears to be atrial fibrillation with rapid ventricular response. Dr. Diane Boyd start the patient on amiodarone and she has since maintained sinus rhythm. She does have some shortness of breath with mild activity even doing things such as walking around the house. She does also have some lower extremity edema. She states that this shortness of breath and edema are not new. She denies any chest pain, syncope, presyncope, paroxysmal nocturnal dyspnea, orthopnea, palpitations. Date of service 05/06: Remains in sinus rhythm. Feeling well today. Hoping to go home. Review of Systems Review of Systems: All systems reviewed & are unremarkable except as noted in HPI and below (HPI) Exam Const: General: comfortable and no acute distress HENMT: Mouth: Yes moist mucous membranes Eyes: General: appearance normal, both eyes and all related structures Sclera: sclerae normal Resp: Effort & Inspection: normal respiratory effort Other: On supplemental oxygen Cardio: Rate: regular rate Rhythm: regular rhythm Skin: General skin exam: normal color Neuro: Speech: normal speech Psych: Mental Status: mental status grossly normal Affect: normal affect Objective Data Vital Signs Vital Signs: Vital Signs - 24 hr 05/05/24 10:46 05/05/24 11:52 05/05/24 12:00 Temperature 36.6 C Pulse Rate 71 Respiratory Rate 22 H Blood Pressure 107/59 L Pulse Oximetry 93 Oxygen Delivery Room Air Room Air Oxygen Flow Rate 05/05/24 12:00 05/05/24 14:12 05/05/24 14:22 Temperature Pulse Rate 72 72
--- NOTE | 2024-05-06 11:19 | PM.IMPN ---
Progress Note: A&P Assessment and Plan (1) Obstructive sleep apnea: Code(s): G47.33 - Obstructive sleep apnea (adult) (pediatric) Status: Acute (2) Hypertension: Code(s): I10 - Essential (primary) hypertension Status: Acute (3) Chronic kidney disease: Code(s): N18.9 - Chronic kidney disease, unspecified Status: Acute (4) Mild dehydration: Code(s): E86.0 - Dehydration Status: Acute (5) Hypernatremia: Code(s): E87.0 - Hyperosmolality and hypernatremia Status: Acute (6) Acute respiratory failure with hypercapnia: Code(s): J96.02 - Acute respiratory failure with hypercapnia Status: Acute (7) Chronic obstructive pulmonary disease: Code(s): J44.9 - Chronic obstructive pulmonary disease, unspecified Status: Acute Plan This is a 78-year-old female with PMH obesity, COPD, hypertension, hyperlipidemia, WPW, history of stroke without residual deficits (on xarelto), GERD, history of DVT, CKD unknown stage. Patient typically gets her care at [facility]. She was recently treated for UTI. reports she has appeared of and foggy sitting upwards of 16 hours a day. 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 EMS summoned and patient administer DuoNeb on the way to hospital. Eventually placed on BiPAP and admitted on 05/03/2024 for acute hypoxic and hypercarbic respiratory failure. # acute hypoxic/hyper cardiac respiratory failure/COPD/respiratory acidosis/RACHELLE noncompliant with CPAP -DuoNebs switch to ipratropium nebs on 05/05/2024 due to tachycardia. -on admission 05/03 pCO2 61.6 --> 53.5. Respiratory failure likely progressive due to noncompliance with CPAP with COPD, however no active wheezing. No steroids administered. -quad viral screen negative. -patient refuse CPAP at home previously. She continues to state that she hates it she did wear it overnight in the hospital. Multiple times encourage compliance. Also discussed with her . knows she is very difficult to be compliant with this. on 05/06/24 pt agrees to use at home, social worker psychiatric consulted to help arrange a machine - reports she was altered at home. Likely secondary to CO2 narcosis. Patient is now A&O x3. -globally weak. Consult PT OT. recommend HHS with PT - placed on NC on 05/05, 05/06 she is requiring BIPAP again. no discharge, ABG in morning, pulm consult. -CXR w/ b/l atelectasis, no cough, fever, or leukocytosis. # hypernatremia/dehydration -due to poor oral intake -resolved status post fluid resuscitation. # CKD unknown stage -2.6 on admission --> 2.3 --> 2.1 --> 2.2 -patient making urine. Continue to cycle renal function. Status post fluid resuscitation. Likely has a serum creatinine around low 2s. -renally dose medications and avoid nephrotoxins. 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 Currently holding due to dehydration. # essential hypertension -currently at goal. -continue CULINARY ARTS INSTRUCTOR medications metoprolol and losartan. # WPW/preexcitation syndrome/a fib -patient follows with Dr. Lewis at [facility]. Obtain last note from the office and there is no significant notation on the WPW. For, patient reports she had an ablation previously which failed. However, patient has been on metoprolol home. She likely had and an aggravation of this due to her RACHELLE noncompliance and hypercapnia and hypoxia on admission. admission EKG with delta wave and short SD/long QRS. On 05/05 the patient entered wide QRS irregular rate in the 130s to 150s. Started on amiodraone and pt converted. - 05/06 Dr. Christianson consultation appreciated. d/c amiodarone. 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 cont to monitor. she should f/u with EP outpatient. - troponin mildly elevated, repeat pending. - cont xarelto. a recurrent a fib rhythm should prompt consideration for direct cardioversion. - keep potassium greater than 4 and magnesium greater than 2. Chronic Conditions -history o
--- NOTE | 2024-05-06 11:25 | PC.NURSE ---
pt requiring more oxygen today, up to 4L. While in room pt's Sp02 dropped to 78%, patient dozing on and off. Put patient back on bipap. Sp02 up to 93% after application. Notified Dr. Rodriguez and respiratory therapy.
[2024-05-06 11:27] LABS: Glucose Point of Care 126 mg/dl (65-105)
[2024-05-06 12:03] LABS: Troponin I 0.068 ng/mL (0.000-0.034)
--- NOTE | 2024-05-06 15:14 | PCPTNOTE ---
Attempted to see patient for PT, however patient refused. Patient reported she wanted to take it easy today and did not want to do any activity with PT. Encouraged patient to participate with PT, however patient continued to refuse.
[2024-05-06] MEDS: POTASSIUM CHLORIDE 20 MEQ ER TABLET PO (16:13)
[2024-05-06] MEDS: RIVAROXABAN 20 MG TABLET PO (16:13)
[2024-05-07] VITALS (27 sets, daily range): BP systolic 93–142; BP diastolic 47–70; PULSE 55–107; RESP 16–33; TEMP 36.4–37.4; O2SAT 96–100
[2024-05-07] MEDS: IPRATROPIUM BR 0.02% INH SOLN 0.5 MG/2.5 ML VIAL INHALATION ×4 (01:30→20:07)
[2024-05-07 04:52] LABS: Anion Gap 2 mmol/L (4-12); Blood Urea Nitrogen 16 mg/dL (7-17); Calcium 8.9 mg/dL (8.4-10.2); Carbon Dioxide 30 mmol/L (22-30); Chloride 110 mmol/L (98-107); Estimated CRCL calculation 25 ml/min; Estimated Glomerular Filt Rate 24; Glucose 96 mg/dL (65-110); Magnesium 2.4 mg/dL (1.6-2.3); Potassium 4.3 mmol/L (3.4-5.0); Sodium 142 mmol/L (137-145)
[2024-05-07 05:20] LABS: Alveolar/Arterial O2 Gradient 49.7 mmHg; Base Excess ABG 1.6 mEq/l (+/-2.0); Carboxyhemoglobin 0.8 % THb (0-2.0); Fractional Inspired Oxygen 28 %; HCO3 ABG 30.4 mEq/l (22.0-26.0); Methemoglobin ABG 0.1 %THb (0-1.5); Oxygen Content ABG 15.7 %vol (16.0-22.0); Oxygen Saturation ABG 89.3 % (95.0-100.0); Oxyhemoglobin 92.7 % THb (90.0-100.0); PO2 ABG 66.5 mmHg (80.0-100.0); PO2 FiO2 Ratio Arterial Blood 2.38 %; Reduced Hemoglobin 6.4 %THb (0-5.0)
[2024-05-07 05:21] LABS: PCO2 ABG 70.7 mmHg (35.0-45.0); pH ABG 7.251 (7.350-7.450)
[2024-05-07 05:22] LABS: Device NON-INVASIVE VENT; Modified Allen's Test Pass; Non-Invasive Expiratory Pressure 8 CMH2O; Non-Invasive Inspiratory Pressure 14 CMH2O; Non-Invasive Vent Rate 22 /MIN; Site Drawn RIGHT RADIAL
--- NOTE | 2024-05-07 08:34 | PM.CNPUL ---
Assessment and Plan Assessment and plan (1) Atrial fibrillation: Code(s): I48.91 - Unspecified atrial fibrillation Status: Acute (2) Obstructive sleep apnea: Code(s): G47.33 - Obstructive sleep apnea (adult) (pediatric) Status: Acute (3) Hypertension: Code(s): I10 - Essential (primary) hypertension Status: Acute (4) Chronic kidney disease: Code(s): N18.9 - Chronic kidney disease, unspecified Status: Acute (5) Acute respiratory failure with hypercapnia: Code(s): J96.02 - Acute respiratory failure with hypercapnia Status: Acute Assessment and Plan: This 78-year-old female presented with acute hypercapnic hypoxemic respiratory failure and atrial fibrillation, with possible congestive heart failure suggested by chest x-ray findings. Regarding the respiratory failure, it appears to be primarily acute and likely related to congestive heart failure. The patient has a known history of obstructive sleep apnea but has not been using CPAP. Although she has never smoked, she was diagnosed with COPD based on pulmonary function testing but has not been receiving treatment with maintenance bronchodilators. I suspect the patient experiences chronic nocturnal hypoxemia due to sleep-disordered breathing and/or kyphosis, which may contribute to cardiac issues such as atrial fibrillation. Her most recent echocardiogram showed evidence of left ventricular diastolic dysfunction with an enlarged left atrium, but no elevated pulmonary artery systolic pressure. Plan: The patient continues to exhibit hypercapnia despite using BiPAP support last night. She will need to use BiPAP support during the day with pressures set at 18/6. A chest CT will be performed to assess for chest congestion and bilateral pleural effusions. (6) Hypercapnic respiratory failure: Code(s): J96.92 - Respiratory failure, unspecified with hypercapnia Status: Acute (7) Chronic obstructive pulmonary disease: Code(s): J44.9 - Chronic obstructive pulmonary disease, unspecified Status: Acute History of Present Illness History of Present Illness Consult date: 05/07/24 Chief complaint: hypercapnic encephalopathy,copd Narrative: This 78-year-old female presented with a few days' history of progressively worsening shortness of breath. She reportedly experienced hallucinations and shortness of breath at home. Her medical history includes hypertension, hyperlipidemia, chronic kidney disease, a previous stroke, GERD, chronic obstructive pulmonary disease (COPD), and sleep apnea. Upon evaluation in the emergency room, the patient was found to have acute respiratory acidosis and was placed on BiPAP support. Further workup revealed atrial fibrillation and congestive heart failure. The patient received BiPAP support with settings of 14/8 pressures, a respiratory rate of 22, and an FiO2 of 28%. With treatment for congestive heart failure and hypercapnic respiratory failure, her respiratory status has improved. When questioned, the patient stated that she has never smoked. Previous pulmonary function testing raised the possibility of COPD, but she has not been on any maintenance bronchodilators. Approximately six months ago, she underwent a sleep study that reportedly showed sleep apnea, and she was placed on CPAP support, which she did not tolerate and subsequently discontinued. She received her pulmonary care at [facility], where she had pulmonary function tests. A chest x-ray on admission showed marked kyphosis and lung congestion related to pulmonary edema. Arterial blood gases initially showed combined acute respiratory and metabolic acidosis. Today's arterial blood gases are more consistent with acute respiratory acidosis, with a pH of 7.25 and a pCO2 of around 70 mmHg. Review of Systems Review of Systems: All systems reviewed & are unremarkable except as noted in HPI and below (HPI and below) [facility]
[2024-05-07] MEDS: PANTOPRAZOLE 40 MG TABLET PO (09:33)
[2024-05-07] MEDS: allopurinoL 100 MG TABLET PO (09:33)
[2024-05-07] MEDS: ATORVASTATIN 40 MG TABLET 80 MG PO (09:33)
[2024-05-07] MEDS: LOSARTAN POTASSIUM 25 MG TABLET PO (09:33)
[2024-05-07] MEDS: METOPROLOL SUCCINATE EXT REL 50 MG TABCR PO (09:33)
[2024-05-07] MEDS: GABAPENTIN 300 MG CAPSULE PO (09:33)
--- NOTE | 2024-05-07 10:21 | PCPTNOTE ---
Attempted to see patient for PT, however patient declined due to wanting to rest at this time.
--- NOTE | 2024-05-07 13:10 | PCOTNOTE ---
Attempted to see Patient this afternoon. Patient refused to participate in any activities, states she needs rest. Per RN, Patient does need to go back on the BiPapp this afternoon. Try back tomorrow.
--- NOTE | 2024-05-07 15:57 | PM.IMPN ---
Progress Note: A&P Assessment and Plan (1) Obstructive sleep apnea: Code(s): G47.33 - Obstructive sleep apnea (adult) (pediatric) Status: Acute (2) Hypertension: Code(s): I10 - Essential (primary) hypertension Status: Acute (3) Chronic kidney disease: Code(s): N18.9 - Chronic kidney disease, unspecified Status: Acute (4) Mild dehydration: Code(s): E86.0 - Dehydration Status: Acute (5) Hypernatremia: Code(s): E87.0 - Hyperosmolality and hypernatremia Status: Acute (6) Acute respiratory failure with hypercapnia: Code(s): J96.02 - Acute respiratory failure with hypercapnia Status: Acute (7) Chronic obstructive pulmonary disease: Code(s): J44.9 - Chronic obstructive pulmonary disease, unspecified Status: Acute Plan This is a 78-year-old female with PMH obesity, COPD, hypertension, hyperlipidemia, WPW, history of stroke without residual deficits (on xarelto), GERD, history of DVT, CKD unknown stage. Patient typically gets her care at [facility]. She was recently treated for UTI. reports she has appeared of and foggy sitting upwards of 16 hours a day. 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 EMS summoned and patient administered DuoNeb on the way to hospital. Eventually placed on BiPAP and admitted on 05/03/2024 for acute hypoxic and hypercarbic respiratory failure. # acute hypoxic/hyper cardiac respiratory failure/COPD/respiratory acidosis/RACHELLE noncompliant with CPAP -DuoNebs switch to ipratropium nebs on 05/05/2024 due to tachycardia. -on admission 05/03 pCO2 61.6 --> 53.5. Respiratory failure likely progressive due to noncompliance with CPAP with COPD, however no active wheezing. No steroids administered. -quad viral screen negative. -patient refuse CPAP at home previously. She continues to state that she hates it she did wear it overnight in the hospital. Multiple times encourage compliance. Also discussed with her . knows she is very difficult to be compliant with this. on 05/06/24 pt agrees to use at home, psychosocial rehabilitation counselor consulted to help arrange a machine - reports she was altered at home. Likely secondary to CO2 narcosis. Patient is now A&O x3. -globally weak. Consult PT OT. recommend HHS with PT -CXR w/ b/l atelectasis, no cough, fever, or leukocytosis. -on 05/07, CT performed, demonstrating bilateral lower lobe atelectasis with small pleural effusion on the left, mild to moderate kyphoscoliosis. Pulmonology recs appreciated. Placed on BiPAP again repeat ABG in 1 hour. Repeat ABG in the morning again. - worried the patient not eating requested he be placed on D5W. D5W at 20 cc/hours to avoid fluid overload. # hypernatremia/dehydration -due to poor oral intake -resolved status post fluid resuscitation. # CKD unknown stage -2.6 on admission --> 2.3 --> 2.1 --> 2.2 -patient making urine. Continue to cycle renal function. Status post fluid resuscitation. Likely has a serum creatinine around low 2s. -renally dose medications and avoid nephrotoxins. 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 Currently holding due to dehydration. # essential hypertension -currently at goal. -continue APPLIANCE ADJUSTER medications metoprolol and losartan. # WPW/preexcitation syndrome/a fib -patient follows with Dr. Lewis at [facility]. Obtain last note from the office and there is no significant notation on the WPW. For, patient reports she had an ablation previously which failed. However, patient has been on metoprolol home. She likely had and an aggravation of this due to her RACHELLE noncompliance and hypercapnia and hypoxia on admission. admission EKG with delta wave and short MN/long QRS. On 05/05 the patient entered wide QRS irregular rate in the 130s to 150s. Started on amiodraone and pt converted. - 05/06 Dr. Christianson consultation appreciated. d/c amiodarone. cont APPLIANCE ADJUSTER metoprolol. cont to monitor. s
[2024-05-07 17:09] LABS: Alveolar/Arterial O2 Gradient 68.7 mmHg; Fractional Inspired Oxygen 28 %; HCO3 ABG 29.4 mEq/l (22.0-26.0); Methemoglobin ABG 0.3 %THb (0-1.5); Oxygen Content ABG 15.4 %vol (16.0-22.0); Oxygen Saturation ABG 88.6 % (95.0-100.0); Oxyhemoglobin 91.8 % THb (90.0-100.0); PCO2 ABG 59.4 mmHg (35.0-45.0); PO2 ABG 60.9 mmHg (80.0-100.0); PO2 FiO2 Ratio Arterial Blood 2.17 %; Reduced Hemoglobin 6.9 %THb (0-5.0); Total Hemoglobin 11.9 g/dL (12.0-18.0); pH ABG 7.312 (7.350-7.450)
[2024-05-07] MEDS: DEXTROSE 5% 1,000 ML 1,000 ML 20 ML IV CONT (17:14)
[2024-05-07] MEDS: RIVAROXABAN 20 MG TABLET PO (17:14)
[2024-05-07 17:16] LABS: Device BIPAP; Modified Allen's Test Pass; Site Drawn RIGHT BRACHIAL
[2024-05-07 17:17] LABS: Expiratory Pressure 6 cmH2O; Inspiratory Pressure 18 cmH2O
--- NOTE | 2024-05-07 23:00 | ECG_ITS ---
Test Date: 2024-05-07 23:10:44 Measurements Intervals [place] Rate: 112 P: 0 MA: 0 QRS: -18 QRSD: 87 T: -32 QT: 328 QTc: 449 Interpretive Statements ATRIAL FIBRILLATION WITH RAPID VENTRICULAR RESPONSE LOW QRS VOLTAGE IN PRECORDIAL LEADS [QRS DEFLECTION < 1.0 mV IN CHEST LEADS] MODERATE VOLTAGE CRITERIA FOR LVH, CONSIDER NORMAL VARIANT [MEETS CRITERIA IN ONE OF: R(aVL), S(V1), R(V5), R(V5/V6)+S(V1)] INFERIOR MYOCARDIAL INFARCTION [40+ ms Q WAVE AND/OR ST/T ABNORMALITY IN II/aVF], OF INDETERMINATE AGE INFERIOR T-WAVE ABNORMALITY, CONSIDER ISCHEMIA ABNORMAL ECG Compared to ECG 05/04/2024 19:57:04 QRS COMPLEX IS MORE NARROW. Electronically Signed On 05-08-2024 15:13:03 CDT by Adrian Christianson M.D.
--- NOTE | 2024-05-07 23:41 | PC.NURSE ---
This nurse was in room with pt when pt's HR increased to 132 bpm. Pt tachypneic, anxious, and c/o intermittent chest pain. Tele monitor reading Afib. This nurse notified Doris Sanchez NP and new orders given to obtain a STAT EKG and if pt remains in Afib to give metoprolol 5mg IV push one time. EKG confirmed Afib. New IV access initiated. Prior to administration of metoprolol pt converted back to sinus shamar HR 58. Pt denies any chest pain or discomfort.
[2024-05-08] VITALS (26 sets, daily range): BP systolic 111–157; BP diastolic 48–78; PULSE 51–84; RESP 15–44; TEMP 36–37.3; O2SAT 91–100
[2024-05-08] MEDS: ACETAMINOPHEN 325 MG TABLET 650 MG PO ×2 (00:19→17:10)
[2024-05-08] MEDS: IPRATROPIUM BR 0.02% INH SOLN 0.5 MG/2.5 ML VIAL INHALATION ×4 (02:30→20:21)
[2024-05-08 05:11] LABS: Hematocrit 33.6 % (37.0-47.0); Hemoglobin 10.4 g/dL (12.0-15.0); Immature Platelet Fraction Pct 6.5 % (0.9-11.2); Mean Corpuscular Hemoglobin 29.4 pg (26-34); Mean Corpuscular Volume 94.9 fl (80-100); Mean Platelet Volume 11.5 fl (7.4-10.4); Platelet Count Result 112 k/mm3 (150-375); Red Blood Count 3.54 M/mm3 (4.2-5.4); Red Cell Distribution Width 13.3 % (11.5-14.5)
[2024-05-08 05:32] LABS: Anion Gap 5 mmol/L (4-12); Blood Urea Nitrogen 23 mg/dL (7-17); Calcium 8.6 mg/dL (8.4-10.2); Carbon Dioxide 28 mmol/L (22-30); Chloride 105 mmol/L (98-107); Estimated CRCL calculation 24 ml/min; Estimated Glomerular Filt Rate 23; Glucose 85 mg/dL (65-110); Magnesium 2.3 mg/dL (1.6-2.3); Potassium 3.7 mmol/L (3.4-5.0); Sodium 138 mmol/L (137-145)
[2024-05-08 05:35] LABS: Alveolar/Arterial O2 Gradient 48.1 mmHg; Base Excess ABG 1.7 mEq/l (+/-2.0); Carboxyhemoglobin 0.6 % THb (0-2.0); Fractional Inspired Oxygen 28 %; HCO3 ABG 29.1 mEq/l (22.0-26.0); Methemoglobin ABG 0.3 %THb (0-1.5); Oxygen Saturation ABG 94.7 % (95.0-100.0); Oxyhemoglobin 95.3 % THb (90.0-100.0); PCO2 ABG 59.6 mmHg (35.0-45.0); PO2 ABG 81.2 mmHg (80.0-100.0); Reduced Hemoglobin 3.8 %THb (0-5.0); Total Hemoglobin 11.1 g/dL (12.0-18.0); pH ABG 7.306 (7.350-7.450)
[2024-05-08 05:37] LABS: Device NON-INVASIVE VENT; Modified Allen's Test Unable to perform; Site Drawn RIGHT RADIAL
[2024-05-08 05:38] LABS: Non-Invasive Expiratory Pressure 6 CMH2O; Non-Invasive Inspiratory Pressure 18 CMH2O; Non-Invasive Vent Rate 24 /MIN
--- NOTE | 2024-05-08 08:06 | PM.PNPUL ---
Progress Note: A&P Assessment and Plan (1) Atrial fibrillation: Code(s): I48.91 - Unspecified atrial fibrillation Status: Acute (2) Chronic kidney disease: Code(s): N18.9 - Chronic kidney disease, unspecified Status: Acute (3) Acute respiratory failure with hypercapnia: Code(s): J96.02 - Acute respiratory failure with hypercapnia Status: Acute Assessment and Plan: This 78-year-old female presented with acute hypercapnic hypoxemic respiratory failure and atrial fibrillation, with possible congestive heart failure suggested by chest x-ray findings. A chest CT showed no evidence of lung infiltrates she had a small pleural effusion on left with associated atelectasis and also cardiomegaly. Patient had marked kyphoscoliosis with the apex of the scoliotic curvature being on the thoracic spine. The patient's hypercapnia is most likely chronic related to known sleep disordered breathing for which she had not been on treatment, and also related to kyphoscoliosis. Patient has been on BiPAP support with pressures 18/6 over the last 24 hours with no significant improvement of her gas exchange. On physical exam she has clear lungs anteriorly. Plan: Patient will need home ventilatory support given her chronic hypercapnic respiratory failure as stated above. At this point will switch patient to BiPAP AVAPS and repeat blood gases in approximately 2 hours. AVAPS settings as follows: Tidal volume 450, EPAP 6, PS 8-25, RR 16 (4) Chronic obstructive pulmonary disease: Code(s): J44.9 - Chronic obstructive pulmonary disease, unspecified Status: Acute (5) Hypercapnic respiratory failure: Code(s): J96.92 - Respiratory failure, unspecified with hypercapnia Status: Acute (6) Kyphoscoliosis: Code(s): M41.9 - Scoliosis, unspecified Status: Acute (7) Obstructive sleep apnea: Code(s): G47.33 - Obstructive sleep apnea (adult) (pediatric) Status: Acute Subjective Date/time seen: 05/08/24 08:06 Interval history: Patient remains on BiPAP support. Has no new respiratory symptoms. Still acidotic on last blood gases. Review of Systems Review of Systems: All systems reviewed & are unremarkable except as noted in HPI and below (HPI and below) Exam Narrative: GENERAL APPEARANCE: Well developed, well nourished, alert and cooperative, and appears to be in mild respiratory distress while on BiPAP support 18/6 SKIN: Inspection of the skin reveals no rashes, ulcerations or petechiae. HEENT: Sclerae anicteric and conjunctivae pink and moist. Extraocular movements were intact and pupils were equal. NECK: Supple. There was no thyroid enlargement, and no tenderness, or masses were felt. CHEST: Increased AP diameter and normal contour, marked kyphosis LUNGS: Crackles at bases posteriorly. CARDIAC: There was an irregular rate and rhythm without any murmurs ABDOMEN: Soft and nontender with normal bowel sounds. There was no organomegaly. LYMPH NODES: No lymphadenopathy was appreciated in the neck. EXTREMITIES: No cyanosis, clubbing 1+ pedal edema NEUROLOGIC: Alert and oriented x 3. Normal affect. Objective Data Vital Signs Vital Signs: Vital Signs - 24 hr 05/07/24 09:33 05/07/24 10:00 05/07/24 12:00 Temperature 37.2 C Pulse Rate 66 64 65 Respiratory Rate 20 Blood Pressure 106/47 L Pulse Oximetry 98 Oxygen Delivery Oxygen Flow Rate Fraction of Inspired Oxygen 05/07/24 13:47 05/07/24 13:50 05/07/24 12:00 Temperature Pulse Rate 62 60 62 Respiratory Rate 24 H 24 H Blood Pressure Pulse Oximetry 97 Oxygen Delivery BiPAP Oxygen Flow Rate Fraction of Inspired Oxygen 05/07/24 12:00 05/07/24 14:00 05/07/24 14:00 Temperature Pulse Rate 56 L Respiratory Rate Blood Pressure Pulse Oximetry 98 96 Oxygen Delivery Nasal Cannula BiPAP Oxygen Flow Rate 2 Fraction of Inspired Oxygen 28 05/07/24 16:
--- NOTE | 2024-05-08 08:47 | PCOTNOTE ---
The patient treatment was not able to be completed. RN reported patient is on BiPAP and her HR is low in the 50s Patient is not appropriate at this time. Will follow up. Will plan to continue treatment per plan of care.
--- NOTE | 2024-05-08 08:57 | PC.NURSE ---
Notified Dr. Hagen about patient HR of 47. Orders to notify cardiology. Attempted to call.
--- NOTE | 2024-05-08 09:00 | PC.NURSE ---
Spoke with Dr. Aguayo about patients sinus bradycardia.
[2024-05-08] MEDS: LOSARTAN POTASSIUM 25 MG TABLET PO (09:49)
[2024-05-08] MEDS: GABAPENTIN 300 MG CAPSULE PO (09:49)
[2024-05-08] MEDS: allopurinoL 100 MG TABLET PO (09:49)
[2024-05-08] MEDS: PANTOPRAZOLE 40 MG TABLET PO (09:49)
[2024-05-08] MEDS: ATORVASTATIN 40 MG TABLET 80 MG PO (09:49)
[2024-05-08] MEDS: METOPROLOL SUCCINATE EXT REL 50 MG TABCR PO (09:49)
--- NOTE | 2024-05-08 10:36 | PM.IMPN ---
Progress Note: A&P Assessment and Plan (1) Obstructive sleep apnea: Code(s): G47.33 - Obstructive sleep apnea (adult) (pediatric) Status: Acute (2) Hypertension: Code(s): I10 - Essential (primary) hypertension Status: Acute (3) Chronic kidney disease: Code(s): N18.9 - Chronic kidney disease, unspecified Status: Acute (4) Mild dehydration: Code(s): E86.0 - Dehydration Status: Acute (5) Hypernatremia: Code(s): E87.0 - Hyperosmolality and hypernatremia Status: Acute (6) Acute respiratory failure with hypercapnia: Code(s): J96.02 - Acute respiratory failure with hypercapnia Status: Acute (7) Chronic obstructive pulmonary disease: Code(s): J44.9 - Chronic obstructive pulmonary disease, unspecified Status: Acute Plan This is a 78-year-old female with PMH obesity, COPD, hypertension, hyperlipidemia, WPW, history of stroke without residual deficits (on xarelto), GERD, history of DVT, CKD unknown stage. Patient typically gets her care at [facility]. She was recently treated for UTI. reports she has appeared of and foggy sitting upwards of 16 hours a day. Past few days CORPORATE COORDINATOR patient appears short of breath. EMS summoned and patient administered DuoNeb on the way to hospital. Eventually placed on BiPAP and admitted on 05/03/2024 for acute hypoxic and hypercarbic respiratory failure. # acute hypoxic/hyper cardiac respiratory failure/COPD/respiratory acidosis/RACHELLE noncompliant with CPAP -DuoNebs switch to ipratropium nebs on 05/05/2024 due to tachycardia. -on admission 05/03 pCO2 61.6 --> 53.5. Respiratory failure likely progressive due to noncompliance with CPAP with COPD, however no active wheezing. No steroids administered. -quad viral screen negative. -patient refuse CPAP at home previously. She continues to state that she hates it she did wear it overnight in the hospital. Multiple times encourage compliance. Also discussed with her . knows she is very difficult to be compliant with this. on 05/06/24 pt agrees to use at home, social work job titles consulted to help arrange a machine - reports she was altered at home. Likely secondary to CO2 narcosis. Patient is now A&O x3. -globally weak. Consult PT OT. recommend HHS with PT -CXR w/ b/l atelectasis, no cough, fever, or leukocytosis. -on 05/07, CT performed, demonstrating bilateral lower lobe atelectasis with small pleural effusion on the left, mild to moderate kyphoscoliosis. Pulmonology recs appreciated. Placed on BiPAP again repeat ABG in 1 hour. Repeat ABG in the morning again. 05/08. No improvement on ABG, patient is on BiPAP, repeated ABG showed worsening CO2 retention. Per nurse report, patient has declined intubation if condition continues to worse # hypernatremia/dehydration -due to poor oral intake -resolved status post fluid resuscitation. - worried the patient not eating s/w D5 1/2NS # CKD unknown stage -2.6 on admission --> 2.3 --> 2.1 --> 2.2 -patient making urine. Continue to cycle renal function. Status post fluid resuscitation. Likely has a serum creatinine around low 2s. -renally dose medications and avoid nephrotoxins. CORPORATE COORDINATOR takes furosemide. Currently holding due to dehydration. s/w D51/2NS 125 ml/h # essential hypertension -currently at goal. -continue CORPORATE COORDINATOR medications metoprolol and losartan. # WPW/preexcitation syndrome/a fib -patient follows with Dr. Lewis at [facility]. Obtain last note from the office and there is no significant notation on the WPW. For, patient reports she had an ablation previously which failed. However, patient has been on metoprolol home. She likely had and an aggravation of this due to her RACHELLE noncompliance and hypercapnia and hypoxia on admission. admission EKG with delta wave and short FL/long QRS. On 05/05 the patient entered wide QRS irregular rate in the 130s to
[2024-05-08 10:38] LABS: Alveolar/Arterial O2 Gradient 77.5 mmHg; Base Excess ABG 3.9 mEq/l (+/-2.0); Fractional Inspired Oxygen 28 %; HCO3 ABG 32.3 mEq/l (22.0-26.0); Oxygen Content ABG 12.9 %vol (16.0-22.0); PO2 FiO2 Ratio Arterial Blood 1.45 %; Total Hemoglobin 11.7 g/dL (12.0-18.0)
[2024-05-08 10:42] LABS: PO2 ABG 40.6 mmHg (80.0-100.0)
[2024-05-08 10:43] LABS: Oxygen Saturation ABG 67.9 % (95.0-100.0); Oxyhemoglobin 78.4 % THb (90.0-100.0); Site Drawn RIGHT RADIAL
[2024-05-08 10:44] LABS: Device BIPAP; PCO2 ABG 69.1 mmHg (35.0-45.0); pH ABG 7.287 (7.350-7.450)
[2024-05-08 10:46] LABS: Expiratory Pressure 4 cmH2O
[2024-05-08] MEDS: DEXTROSE 5%/0.45% SOD CHL 1,000 ML 125 ML IV CONT ×2 (11:04→19:57)
[2024-05-08 14:35] LABS: Alveolar/Arterial O2 Gradient 50.4 mmHg; Base Excess ABG 1.6 mEq/l (+/-2.0); Fractional Inspired Oxygen 28 %; HCO3 ABG 27.7 mEq/l (22.0-26.0); Oxygen Content ABG 14.7 %vol (16.0-22.0); Oxygen Saturation ABG 96.4 % (95.0-100.0); Oxyhemoglobin 96.1 % THb (90.0-100.0); PCO2 ABG 50.5 mmHg (35.0-45.0); PO2 ABG 89.7 mmHg (80.0-100.0); Total Hemoglobin 10.8 g/dL (12.0-18.0); pH ABG 7.357 (7.350-7.450)
[2024-05-08 14:37] LABS: Device BIPAP; Site Drawn RIGHT RADIAL
[2024-05-08 14:38] LABS: Expiratory Pressure 4 cmH2O
--- NOTE | 2024-05-08 15:24 | PCPTNOTE ---
The patient treatment was not able to be completed on 05/08/2024 due to patient's O2 SATs and patient on Bipap. Will plan to continue treatment per plan of care.
--- NOTE | 2024-05-08 16:50 | PM.PNCARD ---
Progress Note: A&P Assessment and Plan (1) Atrial fibrillation: Code(s): I48.91 - Unspecified atrial fibrillation Status: Acute Assessment and Plan: Back in sinus rhythm at this point. Patient should remain on anticoagulation in the form of Xarelto. She is being treated with Xarelto for DVTs. She does have a delta wave on initial ECG and a short AR interval consistent with continued pre-excitation. Continue metoprolol succinate. Atrial fibrillation may be brought on by electrolyte imbalance and recent systemic illness/CO2 retention. Recommend outpatient electrophysiology evaluation. If atrial fibrillation becomes a problem in the future, consider direct cardioversion. Will not uptitrate Metoprolol dose at this time given her baseline bradycardia with heart rates in the 50s. 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 As above (3) Hypertension: Code(s): I10 - Essential (primary) hypertension Status: Acute Assessment and Plan: Continue Metoprolol and Losartan (4) Acute respiratory failure with hypercapnia: Code(s): J96.02 - Acute respiratory failure with hypercapnia Status: Acute Assessment and Plan: Resulting CO2 retention and altered mental status. Workup per hospitalist and pulmonology (5) Chronic obstructive pulmonary disease: Code(s): J44.9 - Chronic obstructive pulmonary disease, unspecified Status: Acute Plan Outpatient follow up with patient's primary Drive In Waiter/Waitress, Dr. Lily Lewis. Recommendations and plan discussed with Hospitalist. Subjective Date/time seen: 05/08/24 16:50 Interval history: Reason for visit: Atrial fibrillation HPI: Patient is a 78-year-old female who came in because of altered mental state. She had been hallucinating and had decreased level consciousness. She came to the hospital was found to be acidotic with CO2 levels in the 60s. She was started on BiPAP with improvement of her mental status. While on telemetry, patient did go into a wide complex tachycardia which seem to be irregular. 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 Loan Lewis at this point. A initial EKG does have some concern of pre-excitation. Rhythm appears to be atrial fibrillation with rapid ventricular response. Dr. Diane Boyd start the patient on amiodarone and she has since maintained sinus rhythm. She does have some shortness of breath with mild activity even doing things such as walking around the house. She does also have some lower extremity edema. She states that this shortness of breath and edema are not new. She denies any chest pain, syncope, presyncope, paroxysmal nocturnal dyspnea, orthopnea, palpitations. Date of service 05/06: Remains in sinus rhythm. Feeling well today. Hoping to go home. Date of service 05/07: Patient had episode of AFIB with RVR last night that self terminated without any intervention. Patient does not recall feeling any symptoms related to that episode. Review of Systems Review of Systems: All systems reviewed & are unremarkable except as noted in HPI and below (HPI) Exam Const: General: comfortable and no acute distress HENMT: Mouth: Yes moist mucous membranes Eyes: General: appearance normal, both eyes and all related structures Sclera: sclerae normal Resp: Effort & Inspection: normal respiratory effort Cardio: Rate: regular rate Rhythm: regular rhythm Skin: General skin exam: normal color Neuro: Speech: normal speech Psych: Mental Status: mental status grossly normal Affect: normal affect Objective Data Vital Signs Vital Signs: Vital Signs - 24 hr 05/07/24 18:00 05/07/24 19:50 05/07/24 20:07 Temperature 37.0 C Pulse Rate 58 L 62 55 L Respiratory Rate 31 H 24 H Blood Pressure 109/70 Pulse Oximet
[2024-05-08] MEDS: RIVAROXABAN 20 MG TABLET PO (17:10)
[2024-05-09] VITALS (25 sets, daily range): BP systolic 98–153; BP diastolic 52–88; PULSE 49–144; RESP 16–31; TEMP 35.9–37.4; O2SAT 94–100; BMI 32.7
[2024-05-09] MEDS: IPRATROPIUM BR 0.02% INH SOLN 0.5 MG/2.5 ML VIAL INHALATION ×4 (01:55→20:51)
--- NOTE | 2024-05-09 09:35 | PM.PNPUL ---
Progress Note: A&P Assessment and Plan (1) Atrial fibrillation: Code(s): I48.91 - Unspecified atrial fibrillation Status: Acute (2) Chronic kidney disease: Code(s): N18.9 - Chronic kidney disease, unspecified Status: Acute (3) Acute respiratory failure with hypercapnia: Code(s): J96.02 - Acute respiratory failure with hypercapnia Status: Acute Assessment and Plan: This 78-year-old female presented with acute hypercapnic hypoxemic respiratory failure and atrial fibrillation, with possible congestive heart failure suggested by chest x-ray findings. A chest CT showed no evidence of lung infiltrates; however, it revealed a small pleural effusion on the left side, associated atelectasis, and cardiomegaly. The patient has marked kyphoscoliosis with the apex of the scoliotic curvature located in the thoracic spine. Her hypercapnia is most likely chronic and related to known sleep-disordered breathing, for which she had not been receiving treatment, as well as to her kyphoscoliosis. The patient was placed on BiPAP AVAPS mode with a tidal volume of 550, resulting in significant improvement in gas exchange over the past 24 hours. She is currently fully awake and in no respiratory distress. The physical exam remains essentially unchanged, and she has returned to normal sinus rhythm. Plan: The patient will continue with BiPAP support at night and as needed during the day. Given the clinical scenario and background, this case leans toward obesity hypoventilation as a potential diagnosis. It is notable that the patient has known sleep-disordered breathing but has not been on CPAP treatment. Another contributing factor to her hypercapnic respiratory failure is her kyphoscoliosis. To manage this condition, the use of noninvasive ventilation at home appears suitable. This mode of treatment, as opposed to traditional BiPAP support, provides consistent ventilatory support adapted to the patient's needs, enhancing CO2 elimination, improving symptoms and quality of life, and minimizing the rate of hospitalizations associated with obesity hypoventilation syndrome. (4) Chronic obstructive pulmonary disease: Code(s): J44.9 - Chronic obstructive pulmonary disease, unspecified Status: Acute (5) Hypercapnic respiratory failure: Code(s): J96.92 - Respiratory failure, unspecified with hypercapnia Status: Acute (6) Kyphoscoliosis: Code(s): M41.9 - Scoliosis, unspecified Status: Acute (7) Obstructive sleep apnea: Code(s): G47.33 - Obstructive sleep apnea (adult) (pediatric) Status: Acute Subjective Date/time seen: 05/09/24 09:35 Interval history: Patient is fully alert awake this a.m.. Tolerated BiPAP support in the AVAPS mode last night. Arterial blood gases showed signal improvement. She has no new respiratory symptoms. Review of Systems Review of Systems: All systems reviewed & are unremarkable except as noted in HPI and below (HPI and below) Exam Narrative: GENERAL APPEARANCE: Well developed, well nourished, alert and cooperative, and appears to be in mild respiratory distress while on BiPAP support 06/05 SKIN: Inspection of the skin reveals no rashes, ulcerations or petechiae. HEENT: Sclerae anicteric and conjunctivae pink and moist. Extraocular movements were intact and pupils were equal. NECK: Supple. There was no thyroid enlargement, and no tenderness, or masses were felt. CHEST: Increased AP diameter and normal contour, marked kyphosis LUNGS: Crackles at bases posteriorly. CARDIAC: There was an irregular rate and rhythm without any murmurs ABDOMEN: Soft and nontender with normal bowel sounds. There was no organomegaly. LYMPH NODES: No lymphadenopathy was appreciated in the neck. EXTREMITIES: No cyanosis, clubbing 1+ pedal edema NEUROLOGIC: Alert and oriented x 3. Normal affect. Objective Data Vital Signs Vital Signs: Vital Signs - 24 hr 05/08/24
[2024-05-09] MEDS: METOPROLOL SUCCINATE EXT REL 50 MG TABCR PO (09:54)
[2024-05-09] MEDS: ATORVASTATIN 40 MG TABLET 80 MG PO (09:55)
[2024-05-09] MEDS: GABAPENTIN 300 MG CAPSULE PO (09:55)
[2024-05-09] MEDS: LOSARTAN POTASSIUM 25 MG TABLET PO (09:55)
[2024-05-09] MEDS: PANTOPRAZOLE 40 MG TABLET PO (09:55)
[2024-05-09] MEDS: allopurinoL 100 MG TABLET PO (09:55)
--- NOTE | 2024-05-09 10:05 | PM.PNCARD ---
Progress Note: A&P Assessment and Plan (1) Atrial fibrillation: Code(s): I48.91 - Unspecified atrial fibrillation Status: Acute Assessment and Plan: In and out of atrial fibrillation. Patient should remain on anticoagulation in the form of Xarelto. She is being treated with Xarelto for DVTs. She does have a delta wave on initial ECG and a short OH interval consistent with continued pre-excitation. Continue metoprolol succinate. Will need electrophysiology evaluation. If atrial fibrillation becomes a problem in the future, consider direct cardioversion. Will give a dose of 5 mg IV metoprolol since at this time since she is back in atrial fibrillation with rapid ventricular response (2) WPW (Stlhb-Dhircgrmo-Uhrnh syndrome): Code(s): I45.6 - Pre-excitation syndrome Status: Acute Assessment and Plan: History of ablation. As above (3) Hypertension: Code(s): I10 - Essential (primary) hypertension Status: Acute Assessment and Plan: Continue Metoprolol and Losartan (4) Acute respiratory failure with hypercapnia: Code(s): J96.02 - Acute respiratory failure with hypercapnia Status: Acute Assessment and Plan: Resulting CO2 retention and altered mental status. Workup per hospitalist and pulmonology (5) Chronic obstructive pulmonary disease: Code(s): J44.9 - Chronic obstructive pulmonary disease, unspecified Status: Acute Plan Outpatient follow up with patient's primary Hot Air Furnace Installer And Repairer, Dr. Lily Lewis. Recommendations and plan discussed with Hospitalist. Subjective Date/time seen: 05/09/24 10:05 Interval history: Reason for visit: Atrial fibrillation HPI: Patient is a 78-year-old female who came in because of altered mental state. She had been hallucinating and had decreased level consciousness. She came to the hospital was found to be acidotic with CO2 levels in the 60s. She was started on BiPAP with improvement of her mental status. While on telemetry, patient did go into a wide complex tachycardia which seem to be irregular. 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 Loan Lewis at this point. A initial EKG does have some concern of pre-excitation. Rhythm appears to be atrial fibrillation with rapid ventricular response. Dr. Diane Boyd start the patient on amiodarone and she has since maintained sinus rhythm. She does have some shortness of breath with mild activity even doing things such as walking around the house. She does also have some lower extremity edema. She states that this shortness of breath and edema are not new. She denies any chest pain, syncope, presyncope, paroxysmal nocturnal dyspnea, orthopnea, palpitations. Date of service 05/06: Remains in sinus rhythm. Feeling well today. Hoping to go home. Date of service 05/07: Patient had episode of AFIB with RVR last night that self terminated without any intervention. Patient does not recall feeling any symptoms related to that episode. Date of service 05/09/2024: In and out of atrial fibrillation. Went back in atrial fibrillation with RVR at 8:00 a.m.. Otherwise asymptomatic denying any chest pain Review of Systems Review of Systems: All systems reviewed & are unremarkable except as noted in HPI and below (HPI) Constitutional: Constitutional: Denies body ache(s) and Denies fatigue Eyes: Eyes: Denies blurry vision ENT: Reports Normal hearing present Cardiovascular: Cardiovascular: Denies chest pain, Reports leg edema and Reports dyspnea Respiratory: Respiratory: Reports dyspnea Gastrointestinal: Gastrointestinal: Denies abdominal pain Genitourinary: Genitourinary: Denies hematuria Musculoskeletal: Musculoskeletal: Denies back pain Integumentary/Breasts: Skin/Breast: Denies rash and Denies skin pain Neurologic: Reports Normal hearing present, Denies Abnormal speech present and Reports confusion
--- NOTE | 2024-05-09 10:33 | PM.IMPN ---
Progress Note: A&P Assessment and Plan (1) Obstructive sleep apnea: Code(s): G47.33 - Obstructive sleep apnea (adult) (pediatric) Status: Acute (2) Hypertension: Code(s): I10 - Essential (primary) hypertension Status: Acute (3) Chronic kidney disease: Code(s): N18.9 - Chronic kidney disease, unspecified Status: Acute (4) Mild dehydration: Code(s): E86.0 - Dehydration Status: Acute (5) Hypernatremia: Code(s): E87.0 - Hyperosmolality and hypernatremia Status: Acute (6) Acute respiratory failure with hypercapnia: Code(s): J96.02 - Acute respiratory failure with hypercapnia Status: Acute (7) Chronic obstructive pulmonary disease: Code(s): J44.9 - Chronic obstructive pulmonary disease, unspecified Status: Acute Plan This is a 78-year-old female with PMH obesity, COPD, hypertension, hyperlipidemia, WPW, history of stroke without residual deficits (on xarelto), GERD, history of DVT, CKD unknown stage. Patient typically gets her care at [facility]. She was recently treated for UTI. reports she has appeared of and foggy sitting upwards of 16 hours a day. Past few days TELEPHONER patient appears short of breath. EMS summoned and patient administered DuoNeb on the way to hospital. Eventually placed on BiPAP and admitted on 05/03/2024 for acute hypoxic and hypercarbic respiratory failure. # acute hypoxic/hyper cardiac respiratory failure/COPD/respiratory acidosis/RACHELLE noncompliant with CPAP -DuoNebs switch to ipratropium nebs on 05/05/2024 due to tachycardia. -on admission 05/03 pCO2 61.6 --> 53.5. Respiratory failure likely progressive due to noncompliance with CPAP with COPD, however no active wheezing. No steroids administered. -quad viral screen negative. -patient refuse CPAP at home previously. She continues to state that she hates it she did wear it overnight in the hospital. Multiple times encourage compliance. Also discussed with her . knows she is very difficult to be compliant with this. on 05/06/24 pt agrees to use at home, manager social responsibility consulted to help arrange a machine - reports she was altered at home. Likely secondary to CO2 narcosis. Patient is now A&O x3. -globally weak. Consult PT OT. recommend HHS with PT -CXR w/ b/l atelectasis, no cough, fever, or leukocytosis. -on 05/07, CT performed, demonstrating bilateral lower lobe atelectasis with small pleural effusion on the left, mild to moderate kyphoscoliosis. Pulmonology recs appreciated. Placed on BiPAP again repeat ABG in 1 hour. Repeat ABG in the morning again. 05/08. No improvement on ABG, patient is on BiPAP, repeated ABG showed worsening CO2 retention. Per nurse report, patient has declined intubation if condition continues to worse 05/09: Patient condition continued to improve, continue BiPAP per pulmonology recommendation # hypernatremia/dehydration -due to poor oral intake -resolved status post fluid resuscitation. - worried the patient not eating s/w D5 1/2NS 05/08 c/w IV fluid # CKD unknown stage -2.6 on admission --> 2.3 --> 2.1 --> 2.2 -patient making urine. Continue to cycle renal function. Status post fluid resuscitation. Likely has a serum creatinine around low 2s. -renally dose medications and avoid nephrotoxins. TELEPHONER takes furosemide. Currently holding due to dehydration. s/w D51/2NS 125 ml/h Improved slightly # essential hypertension -currently at goal. -continue TELEPHONER medications metoprolol and losartan. # WPW/preexcitation syndrome/a fib -patient follows with Dr. Lewis at [facility]. Obtain last note from the office and there is no significant notation on the WPW. For, patient reports she had an ablation previously which failed. However, patient has been on metoprolol home. She likely had and an aggravation of this due to her RACHELLE noncompliance and hypercapnia and hypoxia on ad
[2024-05-09 11:13] LABS: Basophils Percent Auto 0.4 % (0.2-1.2); Eosinophils Percent Auto 0.4 % (0-4.4); Hematocrit 34.6 % (37.0-47.0); Hemoglobin 10.6 g/dL (12.0-15.0); Immature Granulocyte Absolute 0.04 K/mm3 (0.00-0.031); Immature Granulocyte Percent A 0.8 % (0-0.5); Immature Platelet Fraction Pct 6.5 % (0.9-11.2); Lymphocytes Percent Auto 13.6 % (18.3-44.2); Mean Corpuscular HGB Conc 30.6 g/dl (32-36); Mean Corpuscular Hemoglobin 28.7 pg (26-34); Mean Corpuscular Volume 93.8 fl (80-100); Mean Platelet Volume 11.4 fl (7.4-10.4); Monocytes Absolute Auto 0.5 K/mm3 (0.1-0.6); Monocytes Percent Auto 9.3 % (2.6-8.5); Neutrophils Absolute Auto 3.9 K/mm3 (1.3-6.7); Neutrophils Percent Auto 75.5 % (45.5-73.1); Platelet Count Result 104 k/mm3 (150-375); Red Blood Count 3.69 M/mm3 (4.2-5.4); Red Cell Distribution Width 13.2 % (11.5-14.5); White Blood Count 5.2 K/mm3 (4.5-10.0)
[2024-05-09 11:30] LABS: Anion Gap 2 mmol/L (4-12); Blood Urea Nitrogen 23 mg/dL (7-17); Calcium 8.2 mg/dL (8.4-10.2); Carbon Dioxide 29 mmol/L (22-30); Chloride 108 mmol/L (98-107); Estimated CRCL calculation 25 ml/min; Estimated Glomerular Filt Rate 24; Glucose 137 mg/dL (65-110); Potassium 3.5 mmol/L (3.4-5.0); Sodium 139 mmol/L (137-145)
[2024-05-09] MEDS: DEXTROSE 5%/0.45% SOD CHL 1,000 ML 125 ML IV CONT ×2 (13:31→20:22)
[2024-05-09] MEDS: ACETAMINOPHEN 325 MG TABLET 650 MG PO (16:38)
[2024-05-09] MEDS: RIVAROXABAN 20 MG TABLET PO (16:38)
[2024-05-10] VITALS (19 sets, daily range): BP systolic 118–143; BP diastolic 59–72; PULSE 45–68; RESP 18–28; TEMP 35.9–36.6; O2SAT 91–100
[2024-05-10] MEDS: IPRATROPIUM BR 0.02% INH SOLN 0.5 MG/2.5 ML VIAL INHALATION ×4 (02:33→20:25)
[2024-05-10 04:02] LABS: Basophils Percent Auto 0.7 % (0.2-1.2); Eosinophils Percent Auto 0.7 % (0-4.4); Hematocrit 32.9 % (37.0-47.0); Hemoglobin 10.2 g/dL (12.0-15.0); Immature Granulocyte Absolute 0.01 K/mm3 (0.00-0.031); Immature Granulocyte Percent A 0.2 % (0-0.5); Immature Platelet Fraction Pct 7.2 % (0.9-11.2); Lymphocytes Absolute Auto 0.74 K/mm3 (0.9-3.2); Mean Corpuscular Hemoglobin 28.8 pg (26-34); Mean Corpuscular Volume 92.9 fl (80-100); Mean Platelet Volume 11.3 fl (7.4-10.4); Monocytes Absolute Auto 0.4 K/mm3 (0.1-0.6); Monocytes Percent Auto 9.7 % (2.6-8.5); Neutrophils Absolute Auto 2.9 K/mm3 (1.3-6.7); Neutrophils Percent Auto 70.7 % (45.5-73.1); Platelet Count Result 99 k/mm3 (150-375); Red Blood Count 3.54 M/mm3 (4.2-5.4); Red Cell Distribution Width 13.4 % (11.5-14.5); White Blood Count 4.1 K/mm3 (4.5-10.0)
[2024-05-10 04:12] LABS: Anion Gap 3 mmol/L (4-12); Blood Urea Nitrogen 19 mg/dL (7-17); Calcium 8.1 mg/dL (8.4-10.2); Carbon Dioxide 30 mmol/L (22-30); Chloride 108 mmol/L (98-107); Estimated CRCL calculation 28 ml/min; Estimated Glomerular Filt Rate 27; Glucose 132 mg/dL (65-110); Potassium 3.3 mmol/L (3.4-5.0); Sodium 141 mmol/L (137-145)
[2024-05-10] MEDS: DEXTROSE 5%/0.45% SOD CHL 1,000 ML 125 ML IV CONT ×3 (06:03→20:49)
[2024-05-10] MEDS: PANTOPRAZOLE 40 MG TABLET PO (09:15)
[2024-05-10] MEDS: ACETAMINOPHEN 325 MG TABLET 650 MG PO ×3 (09:15→20:41)
[2024-05-10] MEDS: LOSARTAN POTASSIUM 25 MG TABLET PO (09:15)
[2024-05-10] MEDS: ATORVASTATIN 40 MG TABLET 80 MG PO (09:16)
[2024-05-10] MEDS: METOPROLOL SUCCINATE EXT REL 50 MG TABCR PO (09:16)
[2024-05-10] MEDS: GABAPENTIN 300 MG CAPSULE PO (09:16)
[2024-05-10] MEDS: allopurinoL 100 MG TABLET PO (09:16)
--- NOTE | 2024-05-10 09:34 | PM.PNPUL ---
Progress Note: A&P Assessment and Plan (1) Atrial fibrillation: Code(s): I48.91 - Unspecified atrial fibrillation Status: Acute (2) Chronic kidney disease: Code(s): N18.9 - Chronic kidney disease, unspecified Status: Acute (3) Acute respiratory failure with hypercapnia: Code(s): J96.02 - Acute respiratory failure with hypercapnia Status: Acute Assessment and Plan: This 78-year-old female presented with acute hypercapnic hypoxemic respiratory failure and atrial fibrillation, with possible congestive heart failure suggested by chest x-ray findings. A chest CT showed no evidence of lung infiltrates; however, it revealed a small pleural effusion on the left side, associated atelectasis, and cardiomegaly. The patient has marked kyphoscoliosis with the apex of the scoliotic curvature located in the thoracic spine. Her hypercapnia is most likely chronic and related to known sleep-disordered breathing, for which she had not been receiving treatment, as well as to her kyphoscoliosis. The patient was placed on BiPAP AVAPS mode with a tidal volume of 550, resulting in significant improvement in gas exchange over the past 48 hours. She is currently fully awake and in no respiratory distress. The physical exam remains essentially unchanged, and she has returned to normal sinus rhythm. Plan: Please continue BiPAP support at night and as needed during the day. Conduct an ApneaLink assessment tonight using the current BiPAP and FiO2 settings. Discharge home is anticipated soon, pending the setup of the home ventilator. (4) Chronic obstructive pulmonary disease: Code(s): J44.9 - Chronic obstructive pulmonary disease, unspecified Status: Acute (5) Hypercapnic respiratory failure: Code(s): J96.92 - Respiratory failure, unspecified with hypercapnia Status: Acute (6) Kyphoscoliosis: Code(s): M41.9 - Scoliosis, unspecified Status: Acute (7) Obstructive sleep apnea: Code(s): G47.33 - Obstructive sleep apnea (adult) (pediatric) Status: Acute Subjective Date/time seen: 05/10/24 09:34 Interval history: Patient stated she is doing better. She has no new respiratory symptoms. Tolerated BiPAP AVAPS mode last night. Fully awake, on room air. Review of Systems Review of Systems: All systems reviewed & are unremarkable except as noted in HPI and below (HPI and below) Exam Narrative: GENERAL APPEARANCE: Well developed, well nourished, alert and cooperative, and appears to be in mild respiratory distress while on BiPAP support 18/6 SKIN: Inspection of the skin reveals no rashes, ulcerations or petechiae. HEENT: Sclerae anicteric and conjunctivae pink and moist. Extraocular movements were intact and pupils were equal. NECK: Supple. There was no thyroid enlargement, and no tenderness, or masses were felt. CHEST: Increased AP diameter and normal contour, marked kyphosis LUNGS: Crackles at bases posteriorly. CARDIAC: There was an irregular rate and rhythm without any murmurs ABDOMEN: Soft and nontender with normal bowel sounds. There was no organomegaly. LYMPH NODES: No lymphadenopathy was appreciated in the neck. EXTREMITIES: No cyanosis, clubbing 1+ pedal edema NEUROLOGIC: Alert and oriented x 3. Normal affect. Objective Data Vital Signs Vital Signs: Vital Signs - 24 hr 05/09/24 09:54 05/09/24 10:00 05/09/24 11:24 Temperature 35.9 C L Pulse Rate 144 H 70 64 Respiratory Rate 20 Blood Pressure 111/54 L Pulse Oximetry 100 Oxygen Delivery Oxygen Flow Rate 05/09/24 14:06 05/09/24 14:16 05/09/24 12:00 Temperature Pulse Rate 57 L 55 L 66 Respiratory Rate 20 20 Blood Pressure Pulse Oximetry Oxygen Delivery Oxygen Flow Rate 05/09/24 16:00 05/09/24 17:57 05/09/24 19:52 Temperature 37.2 C 36.4 C L Pulse Rate 59 L 87 58 L Respiratory Rate 20 20 Blood Pressure 153/88 H 102/52 L Pulse Oximetry 99 98 Oxygen Deliv
[2024-05-10] MEDS: POTASSIUM CHLORIDE 20 MEQ PACKET (FOR LIQUID) 40 MEQ PO (13:28)
--- NOTE | 2024-05-10 17:10 | PM.IMPN ---
Progress Note: A&P Assessment and Plan (1) Obstructive sleep apnea: Code(s): G47.33 - Obstructive sleep apnea (adult) (pediatric) Status: Acute (2) Hypertension: Code(s): I10 - Essential (primary) hypertension Status: Acute (3) Chronic kidney disease: Code(s): N18.9 - Chronic kidney disease, unspecified Status: Acute (4) Mild dehydration: Code(s): E86.0 - Dehydration Status: Acute (5) Hypernatremia: Code(s): E87.0 - Hyperosmolality and hypernatremia Status: Acute (6) Acute respiratory failure with hypercapnia: Code(s): J96.02 - Acute respiratory failure with hypercapnia Status: Acute (7) Chronic obstructive pulmonary disease: Code(s): J44.9 - Chronic obstructive pulmonary disease, unspecified Status: Acute Plan This is a 78-year-old female with PMH obesity, COPD, hypertension, hyperlipidemia, WPW, history of stroke without residual deficits (on xarelto), GERD, history of DVT, CKD unknown stage. Patient typically gets her care at [facility]. She was recently treated for UTI. reports she has appeared of and foggy sitting upwards of 16 hours a day. 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 EMS summoned and patient administered DuoNeb on the way to hospital. Eventually placed on BiPAP and admitted on 05/03/2024 for acute hypoxic and hypercarbic respiratory failure. # acute hypoxic/hyper cardiac respiratory failure/COPD/respiratory acidosis/RACHELLE noncompliant with CPAP -DuoNebs switch to ipratropium nebs on 05/05/2024 due to tachycardia. -on admission 05/03 pCO2 61.6 --> 53.5. Respiratory failure likely progressive due to noncompliance with CPAP with COPD, however no active wheezing. No steroids administered. -quad viral screen negative. -patient refuse CPAP at home previously. She continues to state that she hates it she did wear it overnight in the hospital. Multiple times encourage compliance. Also discussed with her . knows she is very difficult to be compliant with this. on 05/06/24 pt agrees to use at home, social and human services assistant consulted to help arrange a machine - reports she was altered at home. Likely secondary to CO2 narcosis. Patient is now A&O x3. -globally weak. Consult PT OT. recommend HHS with PT -CXR w/ b/l atelectasis, no cough, fever, or leukocytosis. -on 05/07, CT performed, demonstrating bilateral lower lobe atelectasis with small pleural effusion on the left, mild to moderate kyphoscoliosis. Pulmonology recs appreciated. Placed on BiPAP again repeat ABG in 1 hour. Repeat ABG in the morning again. 05/08. No improvement on ABG, patient is on BiPAP, repeated ABG showed worsening CO2 retention. Per nurse report, patient has declined intubation if condition continues to worse 05/09: Patient condition continued to improve, continue BiPAP per pulmonology recommendation # hypernatremia/dehydration -due to poor oral intake -resolved status post fluid resuscitation. - worried the patient not eating s/w D5 1/2NS 05/08 c/w IV fluid, still dehydrated, but partially corrected # CKD unknown stage -2.6 on admission --> 2.3 --> 2.1 --> 2.2 -patient making urine. Continue to cycle renal function. Status post fluid resuscitation. Likely has a serum creatinine around low 2s. -renally dose medications and avoid nephrotoxins. 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 Currently holding due to dehydration. on D51/2NS 125 ml/h Kidney function is improving # essential hypertension -currently at goal. -continue GROCERY DELIVERER medications metoprolol and losartan. # WPW/preexcitation syndrome/a fib -patient follows with Dr. Lewis at [facility]. Obtain last note from the office and there is no significant notation on the WPW. For, patient reports she had an ablation previously which failed. However, patient has been on metoprolol home. She likely had and an aggravation of this due to her
[2024-05-10] MEDS: RIVAROXABAN 20 MG TABLET PO (17:42)
[2024-05-11] VITALS (21 sets, daily range): BP systolic 136–145; BP diastolic 65–72; PULSE 56–67; RESP 18–32; TEMP 36.1–36.7; O2SAT 95–100
[2024-05-11] MEDS: ACETAMINOPHEN 325 MG TABLET 650 MG PO ×2 (02:51→12:45)
--- NOTE | 2024-05-11 02:58 | PCRCNOTE ---
Pt is on overnight oximetry study, therefore, her 0200 breathing tx was not administered. See next scheduled treatment time.
[2024-05-11 04:46] LABS: Basophils Percent Auto 0.4 % (0.2-1.2); Eosinophils Absolute Auto 0.1 K/mm3 (0-0.3); Eosinophils Percent Auto 1.3 % (0-4.4); Hematocrit 36.1 % (37.0-47.0); Immature Granulocyte Absolute 0.03 K/mm3 (0.00-0.031); Immature Granulocyte Percent A 0.6 % (0-0.5); Lymphocytes Absolute Auto 0.92 K/mm3 (0.9-3.2); Lymphocytes Percent Auto 17.1 % (18.3-44.2); Mean Corpuscular HGB Conc 30.5 g/dl (32-36); Mean Corpuscular Hemoglobin 28.5 pg (26-34); Mean Corpuscular Volume 93.5 fl (80-100); Mean Platelet Volume 12.2 fl (7.4-10.4); Monocytes Absolute Auto 0.5 K/mm3 (0.1-0.6); Monocytes Percent Auto 9.1 % (2.6-8.5); Neutrophils Absolute Auto 3.8 K/mm3 (1.3-6.7); Neutrophils Percent Auto 71.5 % (45.5-73.1); Platelet Count Result 121 k/mm3 (150-375); Red Blood Count 3.86 M/mm3 (4.2-5.4); Red Cell Distribution Width 13.6 % (11.5-14.5); White Blood Count 5.4 K/mm3 (4.5-10.0)
[2024-05-11] MEDS: DEXTROSE 5%/0.45% SOD CHL 1,000 ML 125 ML IV CONT (04:50)
[2024-05-11 04:59] LABS: Anion Gap 4 mmol/L (4-12); Blood Urea Nitrogen 12 mg/dL (7-17); Calcium 8.2 mg/dL (8.4-10.2); Carbon Dioxide 28 mmol/L (22-30); Chloride 110 mmol/L (98-107); Estimated CRCL calculation 31 ml/min; Estimated Glomerular Filt Rate 31; Glucose 128 mg/dL (65-110); Potassium 3.5 mmol/L (3.4-5.0); Sodium 142 mmol/L (137-145)
--- NOTE | 2024-05-11 05:17 | PCRCNOTE ---
Patient was put on 1L NC at 0000 during the oximetry study. Patient desaturated below 88%, therefore was put on oxygen.
[2024-05-11] MEDS: IPRATROPIUM BR 0.02% INH SOLN 0.5 MG/2.5 ML VIAL INHALATION ×3 (07:25→20:35)
[2024-05-11] MEDS: PANTOPRAZOLE 40 MG TABLET PO (10:11)
[2024-05-11] MEDS: ATORVASTATIN 40 MG TABLET 80 MG PO (10:11)
[2024-05-11] MEDS: GABAPENTIN 300 MG CAPSULE PO (10:11)
[2024-05-11] MEDS: METOPROLOL SUCCINATE EXT REL 50 MG TABCR PO (10:11)
[2024-05-11] MEDS: allopurinoL 100 MG TABLET PO (10:11)
[2024-05-11] MEDS: LOSARTAN POTASSIUM 25 MG TABLET PO (10:11)
--- NOTE | 2024-05-11 11:58 | PM.PNPUL ---
Progress Note: A&P Assessment and Plan (1) Atrial fibrillation: Code(s): I48.91 - Unspecified atrial fibrillation Status: Acute (2) Chronic kidney disease: Code(s): N18.9 - Chronic kidney disease, unspecified Status: Acute (3) Acute respiratory failure with hypercapnia: Code(s): J96.02 - Acute respiratory failure with hypercapnia Status: Acute Assessment and Plan: This 78-year-old female presented with acute hypercapnic hypoxemic respiratory failure and atrial fibrillation, with possible congestive heart failure suggested by chest x-ray findings. A chest CT showed no evidence of lung infiltrates; however, it revealed a small pleural effusion on the left side, associated atelectasis, and cardiomegaly. The patient has marked kyphoscoliosis with the apex of the scoliotic curvature located in the thoracic spine. Her hypercapnia is most likely chronic and related to known sleep-disordered breathing, for which she had not been receiving treatment, as well as to her kyphoscoliosis. The patient was placed on BiPAP AVAPS mode with a tidal volume of 550, resulting in significant improvement in gas exchange over the past 48 hours. She is currently fully awake and in no respiratory distress. The physical exam remains essentially unchanged, and she has returned to normal sinus rhythm. On physical exam she has crackles at bases posteriorly and also lower extremity edema. I&Os showed fluid positive balance which fits with the lower extremity edema. Creatinine lower than before. From a respiratory perspective, the patient will require home ventilatory support. We are working towards initiating the home ventilator, ideally by tomorrow night, while the patient is still in the hospital. Additionally, there is an issue with fluid retention that I will defer to the hospitalist to manage. I will also order a chest X-ray. (4) Chronic obstructive pulmonary disease: Code(s): J44.9 - Chronic obstructive pulmonary disease, unspecified Status: Acute (5) Hypercapnic respiratory failure: Code(s): J96.92 - Respiratory failure, unspecified with hypercapnia Status: Acute (6) Kyphoscoliosis: Code(s): M41.9 - Scoliosis, unspecified Status: Acute (7) Obstructive sleep apnea: Code(s): G47.33 - Obstructive sleep apnea (adult) (pediatric) Status: Acute Subjective Date/time seen: 05/11/24 11:58 Interval history: Patient did not use BiPAP support last night. According to her RN she has been refusing BiPAP at night. She has no new respiratory symptoms. Shortness of breath about unchanged. She is more anxious today. Review of Systems Review of Systems: All systems reviewed & are unremarkable except as noted in HPI and below (HPI and below) Exam Narrative: GENERAL APPEARANCE: Well developed, well nourished, alert and cooperative, and appears to be in mild respiratory distress while nasal cannula SKIN: Inspection of the skin reveals no rashes, ulcerations or petechiae. HEENT: Sclerae anicteric and conjunctivae pink and moist. Extraocular movements were intact and pupils were equal. NECK: Supple. There was no thyroid enlargement, and no tenderness, or masses were felt. CHEST: Increased AP diameter and normal contour, marked kyphosis LUNGS: Crackles at bases posteriorly. CARDIAC: There was an irregular rate and rhythm without any murmurs ABDOMEN: Soft and nontender with normal bowel sounds. There was no organomegaly. LYMPH NODES: No lymphadenopathy was appreciated in the neck. EXTREMITIES: No cyanosis, clubbing 1+ pedal edema NEUROLOGIC: Alert and oriented x 3. Normal affect. Objective Data Vital Signs Vital Signs: Vital Signs - 24 hr 05/10/24 13:27 05/10/24 13:28 05/10/24 15:42 Temperature 36.6 C Pulse Rate 68 61 Respiratory Rate 20 28 H Blood Pressure 127/63 Pulse Oximetry 91 97 Oxygen Delivery Room Air Oxygen Flow Rate 05/10/24 12:00 05/10/24
[2024-05-11] MEDS: FUROSEMIDE INJ 40 MG/4 ML VIAL 20 MG IV PUSH (13:38)
--- NOTE | 2024-05-11 13:50 | PM.IMPN ---
Progress Note: A&P Assessment and Plan (1) Obstructive sleep apnea: Code(s): G47.33 - Obstructive sleep apnea (adult) (pediatric) Status: Acute (2) Hypertension: Code(s): I10 - Essential (primary) hypertension Status: Acute (3) Chronic kidney disease: Code(s): N18.9 - Chronic kidney disease, unspecified Status: Acute (4) Mild dehydration: Code(s): E86.0 - Dehydration Status: Acute (5) Hypernatremia: Code(s): E87.0 - Hyperosmolality and hypernatremia Status: Acute (6) Acute respiratory failure with hypercapnia: Code(s): J96.02 - Acute respiratory failure with hypercapnia Status: Acute (7) Chronic obstructive pulmonary disease: Code(s): J44.9 - Chronic obstructive pulmonary disease, unspecified Status: Acute Plan This is a 78-year-old female with PMH obesity, COPD, hypertension, hyperlipidemia, WPW, history of stroke without residual deficits (on xarelto), GERD, history of DVT, CKD unknown stage. Patient typically gets her care at [facility]. She was recently treated for UTI. reports she has appeared of and foggy sitting upwards of 16 hours a day. 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 EMS summoned and patient administered DuoNeb on the way to hospital. Eventually placed on BiPAP and admitted on 05/03/2024 for acute hypoxic and hypercarbic respiratory failure. Acute on chronic respiratory failure with CO2 retention, acute metabolic encephalopathy upon arrival Possible due to COPD exam the patient and obesity hypoventilation syndrome -on admission 05/03 pCO2 61.6 --> 53.5. Suspecting noncompliance with CPAP with COPD, - reports she was altered at home. Likely secondary to CO2 narcosis. Patient is now A&O x3. -globally weak. Consult PT OT. recommend HHS with PT -CXR w/ b/l atelectasis, no cough, fever, or leukocytosis. -on 05/07, CT performed, demonstrating bilateral lower lobe atelectasis with small pleural effusion on the left, mild to moderate kyphoscoliosis. Pulmonology recs appreciated. Placed on BiPAP again repeat ABG in 1 hour. Repeat ABG in the morning again. 05/08. No improvement on ABG, patient is on BiPAP, repeated ABG showed worsening CO2 retention. Per nurse report, patient has declined intubation if condition continues to worse 05/11 Patient condition continued to improve, now patient is on 2 L oxygen via nasal cannula, pulse ox 100%, x-ray shows pulmonary congestion, but patient does not have respiratory distress, provide Lasix 20 mg IV push once hypernatremia/dehydration -due to poor oral intake -resolved status post fluid resuscitation. - worried the patient not eating Started D5 1/2NS 05/08 Dehydration has corrected Decrease D5 half-normal saline to 75 mL/hour Acute on chronic renal failure On no baseline Upon arrival creatinine is 2.6, patient has a poor intake, hypotension, possible secondary to poor intake and patient received fluid resuscitation. Now patient is on D51/2NS 125 ml/h Kidney function is improving, creatinine 1.6, decreased to D5 half normal saline 75 mL/hour essential hypertension -currently at goal. 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 WPW/preexcitation syndrome/a fib -patient follows with Dr. Lewis at [facility]. Obtain last note from the office and there is no significant notation on the WPW. For, patient reports she had an ablation previously which failed. However, patient has been on metoprolol home. She likely had and an aggravation of this due to her RACHELLE noncompliance and hypercapnia and hypoxia on admission. admission EKG with delta wave and short SD/long QRS. On 05/05 the patient entered wide QRS irregular rate in the 130s to 150s. Started on amiodraone and pt converted. - 05/06 Dr. Christianson consultation appreciated. d/c amiodarone. cont PHOTOENGRAVING SUPERVISOR metoprolol. cont to monitor. she should f/u with EP outpatient.
[2024-05-11] MEDS: DEXTROSE 5%/0.45% SOD CHL 1,000 ML 75 ML IV CONT (14:39)
[2024-05-11] MEDS: RIVAROXABAN 20 MG TABLET PO (16:49)
[2024-05-12] VITALS (28 sets, daily range): BP systolic 133–145; BP diastolic 59–74; PULSE 56–77; RESP 18–24; TEMP 36.6–36.8; O2SAT 84–99
[2024-05-12] MEDS: IPRATROPIUM BR 0.02% INH SOLN 0.5 MG/2.5 ML VIAL INHALATION ×4 (02:30→20:41)
[2024-05-12] MEDS: ACETAMINOPHEN 325 MG TABLET 650 MG PO ×3 (04:32→20:25)
[2024-05-12] MEDS: DEXTROSE 5%/0.45% SOD CHL 1,000 ML 75 ML IV CONT (04:33)
--- NOTE | 2024-05-12 08:27 | PM.IMPN ---
Progress Note: A&P Assessment and Plan (1) Obstructive sleep apnea: Code(s): G47.33 - Obstructive sleep apnea (adult) (pediatric) Status: Acute (2) Hypertension: Code(s): I10 - Essential (primary) hypertension Status: Acute (3) Chronic kidney disease: Code(s): N18.9 - Chronic kidney disease, unspecified Status: Acute (4) Mild dehydration: Code(s): E86.0 - Dehydration Status: Acute (5) Hypernatremia: Code(s): E87.0 - Hyperosmolality and hypernatremia Status: Acute (6) Acute respiratory failure with hypercapnia: Code(s): J96.02 - Acute respiratory failure with hypercapnia Status: Acute (7) Chronic obstructive pulmonary disease: Code(s): J44.9 - Chronic obstructive pulmonary disease, unspecified Status: Acute Plan This is a 78-year-old female with PMH obesity, COPD, hypertension, hyperlipidemia, WPW, history of stroke without residual deficits (on xarelto), GERD, history of DVT, CKD unknown stage. Patient typically gets her care at [facility]. She was recently treated for UTI. reports she has appeared of and foggy sitting upwards of 16 hours a day. 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 EMS summoned and patient administered DuoNeb on the way to hospital. Eventually placed on BiPAP and admitted on 05/03/2024 for acute hypoxic and hypercarbic respiratory failure. Acute on chronic respiratory failure with CO2 retention, acute metabolic encephalopathy upon arrival Possible due to COPD exam the patient and obesity hypoventilation syndrome -on admission 05/03 pCO2 61.6 --> 53.5. Suspecting noncompliance with CPAP with COPD, - reports she was altered at home. Likely secondary to CO2 narcosis. Patient is now A&O x3. -globally weak. Consult PT OT. recommend HHS with PT -CXR w/ b/l atelectasis, no cough, fever, or leukocytosis. -on 05/07, CT performed, demonstrating bilateral lower lobe atelectasis with small pleural effusion on the left, mild to moderate kyphoscoliosis. Pulmonology recs appreciated. Placed on BiPAP again repeat ABG in 1 hour. Repeat ABG in the morning again. 6/20. No improvement on ABG, patient is on BiPAP, repeated ABG showed worsening CO2 retention. Per nurse report, patient has declined intubation if condition continues to worse 05/12 Patient condition continued to improve, now patient is on 2 L oxygen via nasal cannula, pulse ox 100%, x-ray is done today, radiologist's reports mild pulmonary congestion, comparing previous xr, no sig changes, patient feels dyspnea is improved hypernatremia/dehydration -due to poor oral intake -resolved status post fluid resuscitation. - worried the patient not eating Started D5 1/2NS 05/08 Dehydration has corrected Decrease D5 half-normal saline to 75 mL/hour 05/11 Patient appetite is improving, stop IV fluid. 05/12 Acute on chronic renal failure On no baseline Upon arrival creatinine is 2.6, patient has a poor intake, hypotension, possible secondary to poor intake and patient received fluid resuscitation. received D51/2NS now BP is stable and kidney function is improving, dc iv fluid 05/12 essential hypertension -currently at goal. -continue [employer]ER [employer] medications metoprolol and losartan. WPW/preexcitation syndrome/a fib -patient follows with Dr. Lewis at [facility]. Obtain last note from the office and there is no significant notation on the WPW. For, patient reports she had an ablation previously which failed. However, patient has been on metoprolol home. She likely had and an aggravation of this due to her RACHELLE noncompliance and hypercapnia and hypoxia on admission. admission EKG with delta wave and short GA/long QRS. On 05/05 the patient entered wide QRS irregular rate in the 130s to 150s. Started on amiodraone and pt converted. - 05/06 Dr. Christianson consultation appreciated. d/c amiodarone. cont [employer]ER [employer] metoprolol. co
[2024-05-12 09:03] LABS: Hematocrit 34.9 % (37.0-47.0); Hemoglobin 10.7 g/dL (12.0-15.0); Immature Platelet Fraction Pct 6.6 % (0.9-11.2); Mean Corpuscular HGB Conc 30.7 g/dl (32-36); Mean Corpuscular Hemoglobin 29.2 pg (26-34); Mean Corpuscular Volume 95.4 fl (80-100); Mean Platelet Volume 11.3 fl (7.4-10.4); Platelet Count Result 118 k/mm3 (150-375); Red Blood Count 3.66 M/mm3 (4.2-5.4); Red Cell Distribution Width 13.7 % (11.5-14.5); White Blood Count 5.2 K/mm3 (4.5-10.0)
[2024-05-12 09:11] LABS: Anion Gap 4 mmol/L (4-12); Blood Urea Nitrogen 10 mg/dL (7-17); Calcium 8.2 mg/dL (8.4-10.2); Carbon Dioxide 29 mmol/L (22-30); Chloride 110 mmol/L (98-107); Estimated CRCL calculation 29 ml/min; Estimated Glomerular Filt Rate 29; Glucose 131 mg/dL (65-110); Potassium 3.4 mmol/L (3.4-5.0); Sodium 143 mmol/L (137-145)
[2024-05-12] MEDS: METOPROLOL SUCCINATE EXT REL 50 MG TABCR PO (09:20)
[2024-05-12] MEDS: LOSARTAN POTASSIUM 25 MG TABLET PO (09:20)
[2024-05-12] MEDS: ATORVASTATIN 40 MG TABLET 80 MG PO (09:20)
[2024-05-12] MEDS: GABAPENTIN 300 MG CAPSULE PO (09:20)
[2024-05-12] MEDS: allopurinoL 100 MG TABLET PO (09:20)
[2024-05-12] MEDS: PANTOPRAZOLE 40 MG TABLET PO (09:20)
--- NOTE | 2024-05-12 09:20 | PM.PNPUL ---
Progress Note: A&P Assessment and Plan (1) Atrial fibrillation: Code(s): I48.91 - Unspecified atrial fibrillation Status: Acute (2) Chronic kidney disease: Code(s): N18.9 - Chronic kidney disease, unspecified Status: Acute (3) Acute respiratory failure with hypercapnia: Code(s): J96.02 - Acute respiratory failure with hypercapnia Status: Acute Assessment and Plan: This 78-year-old female presented with acute hypercapnic hypoxemic respiratory failure and atrial fibrillation, with possible congestive heart failure suggested by chest x-ray findings. A chest CT showed no evidence of lung infiltrates; however, it revealed a small pleural effusion on the left side, associated atelectasis, and cardiomegaly. The patient has marked kyphoscoliosis with the apex of the scoliotic curvature located in the thoracic spine. Her hypercapnia is most likely chronic and related to known sleep-disordered breathing, for which she had not been receiving treatment, as well as to her kyphoscoliosis. The patient was placed on BiPAP AVAPS mode with a tidal volume of 550, resulting in significant improvement in gas exchange over the past 48 hours. She is currently fully awake and in no respiratory distress. The physical exam remains essentially unchanged, and she has returned to normal sinus rhythm. On physical exam she has crackles at bases posteriorly and also lower extremity edema. I&Os showed fluid positive balance which fits with the lower extremity edema. Creatinine lower than before. From a respiratory perspective, the patient will require home ventilatory support. We are working towards initiating the home ventilator, probably tonight and measure oxyhemoglobin saturation via ApneaLink. (4) Chronic obstructive pulmonary disease: Code(s): J44.9 - Chronic obstructive pulmonary disease, unspecified Status: Acute (5) Hypercapnic respiratory failure: Code(s): J96.92 - Respiratory failure, unspecified with hypercapnia Status: Acute (6) Kyphoscoliosis: Code(s): M41.9 - Scoliosis, unspecified Status: Acute (7) Obstructive sleep apnea: Code(s): G47.33 - Obstructive sleep apnea (adult) (pediatric) Status: Acute Subjective Date/time seen: 05/12/24 09:20 Interval history: Patient has no new respiratory symptoms. She could not remember whether she used a BiPAP support last night. Currently on just oxygen via nasal cannula. She has no shortness of breath. Review of Systems Review of Systems: All systems reviewed & are unremarkable except as noted in HPI and below (HPI and below) Exam Narrative: GENERAL APPEARANCE: Well developed, well nourished, alert and cooperative, and appears to be in mild respiratory distress while on BiPAP support 18 SKIN: Inspection of the skin reveals no rashes, ulcerations or petechiae. HEENT: Sclerae anicteric and conjunctivae pink and moist. Extraocular movements were intact and pupils were equal. NECK: Supple. There was no thyroid enlargement, and no tenderness, or masses were felt. CHEST: Increased AP diameter and normal contour, marked kyphosis LUNGS: Crackles at bases posteriorly. CARDIAC: There was an irregular rate and rhythm without any murmurs ABDOMEN: Soft and nontender with normal bowel sounds. There was no organomegaly. LYMPH NODES: No lymphadenopathy was appreciated in the neck. EXTREMITIES: No cyanosis, clubbing 1+ pedal edema NEUROLOGIC: Alert and oriented x 3. Normal affect. Objective Data Vital Signs Vital Signs: Vital Signs - 24 hr 05/11/24 09:33 05/11/24 10:11 05/11/24 11:14 Temperature 36.7 C Pulse Rate 65 60 Respiratory Rate 32 H 18 Blood Pressure 144/66 H Pulse Oximetry 100 100 Oxygen Delivery Nasal Cannula Oxygen Flow Rate 2 05/11/24 14:08 05/11/24 14:19 05/11/24 14:21 Temperature Pulse Rate 62 58 L Respiratory Rate 18 18 Blood Pressure Pulse Oximetry 98 Oxygen Deliv
--- NOTE | 2024-05-12 09:43 | PCNFU ---
Nutrition Follow-Up Complete: Inadequate oral intake related to loss of appetite as evidenced by intakes <50% last 48 hours Goal: Improve PO intake to 50% meals and supplements - Progressing to goal, variable intakes. Continue with same goal Pt current nutrition is Heart healthy diet. Compact BID for additional 220 kcal and 9 g protein. Nutritional ice cream BID for additional 270 kcal and 9 g protein. Nutrition recommendation: No new nutrition recommendations. Continue with current nutrition care plan and orders. Last recorded weight is 93.9 kg. Bowel Motility: No bowel movement charted Labs Reviewed: Hgb 10.7, Hct 34.9, BUN 29, Ce 1.7, Glu 131 Meds Noted: Zofran, protonix, xarelto Skin: No pressure injuries Additional Notes: Intakes 0-100%, variable appetite. Taking nutritional ice cream well. Continue with current care plan and monitoring. Agree with orders Monitoring intakes, weights, labs, supplement tolerance, plan of care Follow up in 5 days
[2024-05-12] MEDS: FUROSEMIDE INJ 40 MG/4 ML VIAL 20 MG IV PUSH (12:07)
[2024-05-12] MEDS: oxyCODONE/ACETAMINOPHEN (*CRX) 5-325 MG TABLET 1 TABLET PO ×2 (12:07→17:45)
--- NOTE | 2024-05-12 12:40 | PC.NURSE ---
Pt transferred to room 251 via bed. Report given to CASE Villalpando
--- NOTE | 2024-05-12 13:43 | PCRCNOTE ---
HOME O2 EVALUATION COMPLETED. PT. DOES NOT REQUIRE SUPPLEMENTAL O2 AT REST OR WITH ACTIVITY.
--- NOTE | 2024-05-12 13:46 | HOMEO2EVAL ---
Evaluation was performed at [facility] Home Oxygen Evaluation RC: Home Oxygen (O2) Evaluation Start: 05/12/24 13:44 Freq: ONCE Status: Active Protocol: RPE Activity Type Activity Date Activity User E-sign Co-sign Detail Recorded Client Recorded Date Recorded By Document 05/12/24 13:30 KRM [email or web address] 05/12/24 13:45 KRM Document 05/12/24 13:35 KRM [email or web address] 05/12/24 13:45 KRM 05/12/24 05/12/24 13:30 13:35 Home O2 Evaluation [Oxygen] -Test Phase Resting Resting -Oxygen Delivery Room Air Room Air [Pulse Oximetry] -Pulse Oximetry (90-100 %) 92 90 [Pulse Rate] -Pulse Rate (60-100 beats/min) 64 66 [Evaluation] -Activity Tolerance Poor [Comments] -Home Oxygen Evaluation Comments PT. WOULD NOT AMBULATE. I WAS ABLE TO GET HER TO DO ARM EXERCISES. NO O2 REQUIREMENTS . [Charges] -Evaluation Charges O2 Evaluation by Pulmonary
--- NOTE | 2024-05-12 16:07 | ADMGEN ---
This patient, Adriana Arechiga, was admitted to Medical Room 251-01. Patient/family oriented to hospital policies and general routines including ID bracelet, bed and alarms, visiting hours, pain management, procedures, bathroom and other care routines, personal items, smoking policy, room service/diet, and visiting hours. Information on how to activate the Rapid Response Team has been discussed. Patient/Family are encouraged to report perceived risks to care and to ask questions if they do not understand what they are told or what they should do.
--- NOTE | 2024-05-12 16:07 | PC.NURSE ---
This patient, Adriana Arechiga, was received from [ ] on 05/12/24 at 13:00. Patient/family oriented to unit policies and routines
[2024-05-12] MEDS: RIVAROXABAN 20 MG TABLET PO (17:43)
[2024-05-13] VITALS (16 sets, daily range): BP systolic 104–169; BP diastolic 65–83; PULSE 54–96; RESP 16–22; TEMP 36.3–36.8; O2SAT 85–100
--- NOTE | 2024-05-13 02:14 | PCRCNOTE ---
Pt awakened panicked and took BIPAP off for about half an hour stated her neck hurt and she felt like she was biting her mouth, mask was re adjusted and pt proceeded with apnea link with it on
[2024-05-13] MEDS: IPRATROPIUM BR 0.02% INH SOLN 0.5 MG/2.5 ML VIAL INHALATION ×2 (06:59→13:05)
[2024-05-13] MEDS: GABAPENTIN 300 MG CAPSULE PO (08:13)
[2024-05-13] MEDS: oxyCODONE/ACETAMINOPHEN (*CRX) 5-325 MG TABLET 1 TABLET PO ×2 (08:13→14:06)
[2024-05-13] MEDS: ATORVASTATIN 40 MG TABLET 80 MG PO (08:13)
[2024-05-13] MEDS: LOSARTAN POTASSIUM 25 MG TABLET PO (08:13)
[2024-05-13] MEDS: allopurinoL 100 MG TABLET PO (08:14)
[2024-05-13] MEDS: METOPROLOL SUCCINATE EXT REL 50 MG TABCR PO (08:14)
[2024-05-13] MEDS: PANTOPRAZOLE 40 MG TABLET PO (08:14)
--- NOTE | 2024-05-13 08:31 | PM.PNPUL ---
Progress Note: A&P Assessment and Plan (1) Atrial fibrillation: Code(s): I48.91 - Unspecified atrial fibrillation Status: Acute (2) Chronic kidney disease: Code(s): N18.9 - Chronic kidney disease, unspecified Status: Acute (3) Acute respiratory failure with hypercapnia: Code(s): J96.02 - Acute respiratory failure with hypercapnia Status: Acute Assessment and Plan: This 78-year-old female presented with acute hypercapnic hypoxemic respiratory failure and atrial fibrillation, with possible congestive heart failure suggested by chest x-ray findings. A chest CT showed no evidence of lung infiltrates; however, it revealed a small pleural effusion on the left side, associated atelectasis, and cardiomegaly. The patient has marked kyphoscoliosis with the apex of the scoliotic curvature located in the thoracic spine. Her hypercapnia is most likely chronic and related to known sleep-disordered breathing, for which she had not been receiving treatment, as well as to her kyphoscoliosis. The patient was placed on BiPAP AVAPS mode with a tidal volume of 550, resulting in significant improvement in gas exchange. She is currently fully awake and in no respiratory distress. The physical exam remains essentially unchanged, and she has returned to normal sinus rhythm. Patient underwent ApneaLink study last night on home ventilator on supplemental oxygen 3 liters/minute. She had no evidence of significant oxyhemoglobin desaturation. Patient slept well and tolerated the home ventilator for most of the night. Plan: Okay to discharge patient home. Patient was encouraged to use home ventilator along with supplemental oxygen at night. She may need home oxygen during the day. Have ordered home oxygen evaluation. Regarding medications for congestive heart failure atrial fibrillation I will leave that to the discretion of the hospitalist. Patient needs to make an appointment with the Pulmonary Clinic in approximately 3-4 weeks. I provided the patient with the pulmonary clinic business card call to make an appointment. At this point I will sign off, please call with any questions. (4) Chronic obstructive pulmonary disease: Code(s): J44.9 - Chronic obstructive pulmonary disease, unspecified Status: Acute (5) Hypercapnic respiratory failure: Code(s): J96.92 - Respiratory failure, unspecified with hypercapnia Status: Acute (6) Kyphoscoliosis: Code(s): M41.9 - Scoliosis, unspecified Status: Acute (7) Obstructive sleep apnea: Code(s): G47.33 - Obstructive sleep apnea (adult) (pediatric) Status: Acute Subjective Date/time seen: 05/13/24 08:31 Interval history: Patient has no new respiratory symptoms. Used own home ventilator along with supplemental oxygen 3 liters/minute last night. ApneaLink showed no significant oxyhemoglobin desaturation on those settings. Patient eager to go home Review of Systems Review of Systems: All systems reviewed & are unremarkable except as noted in HPI and below (HPI and below) Exam Narrative: GENERAL APPEARANCE: Well developed, well nourished, alert and cooperative, and appears to be in mild respiratory distress while on BiPAP support 18/ SKIN: Inspection of the skin reveals no rashes, ulcerations or petechiae. HEENT: Sclerae anicteric and conjunctivae pink and moist. Extraocular movements were intact and pupils were equal. NECK: Supple. There was no thyroid enlargement, and no tenderness, or masses were felt. CHEST: Increased AP diameter and normal contour, marked kyphosis LUNGS: Crackles at bases posteriorly. CARDIAC: There was an irregular rate and rhythm without any murmurs ABDOMEN: Soft and nontender with normal bowel sounds. There was no organomegaly. LYMPH NODES: No lymphadenopathy was appreciated in the neck. EXTREMITIES: No cyanosis, clubbing 1+ pedal edema NEUROLOGIC: Alert and oriented x 3. Normal affect. Objective Da
--- NOTE | 2024-05-13 10:23 | P.DS_ITS ---
DS: Admitting Diagnosis Discharge Date 05/13 Admitting Diagnosis (1) Obstructive sleep apnea: Code(s): G47.33 - Obstructive sleep apnea (adult) (pediatric) Status: Acute (2) Hypertension: Code(s): I10 - Essential (primary) hypertension Status: Acute (3) Chronic kidney disease: Code(s): N18.9 - Chronic kidney disease, unspecified Status: Acute (4) Mild dehydration: Code(s): E86.0 - Dehydration Status: Acute (5) Hypernatremia: Code(s): E87.0 - Hyperosmolality and hypernatremia Status: Acute (6) Acute respiratory failure with hypercapnia: Code(s): J96.02 - Acute respiratory failure with hypercapnia Status: Acute (7) Chronic obstructive pulmonary disease: Code(s): J44.9 - Chronic obstructive pulmonary disease, unspecified Status: Acute DS: Discharge Diagnosis Discharge Diagnosis (1) Obstructive sleep apnea: Code(s): G47.33 - Obstructive sleep apnea (adult) (pediatric) Status: Acute (2) Hypertension: Code(s): I10 - Essential (primary) hypertension Status: Acute (3) Chronic kidney disease: Code(s): N18.9 - Chronic kidney disease, unspecified Status: Acute (4) Mild dehydration: Code(s): E86.0 - Dehydration Status: Acute (5) Hypernatremia: Code(s): E87.0 - Hyperosmolality and hypernatremia Status: Acute (6) Acute respiratory failure with hypercapnia: Code(s): J96.02 - Acute respiratory failure with hypercapnia Status: Acute (7) Chronic obstructive pulmonary disease: Code(s): J44.9 - Chronic obstructive pulmonary disease, unspecified Status: Acute DS: Summary Hospital Course Hospital Course: This is a 78-year-old female with PMH obesity, COPD, hypertension, hyperlipidemia, WPW, history of stroke without residual deficits (on xarelto), GERD, history of DVT, CKD unknown stage. Patient typically gets her care at [facility]. She was recently treated for UTI. reports she has appeared of and foggy sitting upwards of 16 hours a day. Past few days [employer]OR [employer] patient appears short of breath. EMS summoned and patient administered DuoNeb on the way to hospital. Eventually placed on BiPAP and admitted on 05/03/2024 for acute hypoxic and hypercarbic respiratory failure. Patient was admitted to the hospital for further evaluation and treatment The following med issues have been addressed during hospitalization Acute on chronic respiratory failure with CO2 retention, acute metabolic encephalopathy upon arrival Possible due to COPD exam the patient and obesity hypoventilation syndrome -on admission 05/03 pCO2 61.6 --> 53.5. Suspecting noncompliance with CPAP with COPD, - reports she was altered at home. Likely secondary to CO2 narcosis. Patient is now A&O x3. -globally weak. Consult PT OT. recommend HHS with PT -CXR w/ b/l atelectasis, no cough, fever, or leukocytosis. -on 05/07, CT performed, demonstrating bilateral lower lobe atelectasis with small pleural effusion on the left, mild to moderate kyphoscoliosis. Pulmonology recs appreciated. Placed on BiPAP again repeat ABG in 1 hour. Repeat ABG in the morning again. 05/08. No improvement on ABG, patient is on BiPAP, repeated ABG showed worsening CO2 retention. Per nurse report, patient has declined intubation if condition continues to worse 05/12 Patient condition continued to improve, now patient is on 2 L oxygen via nasal cannula, pulse ox 100%, x-ray is done today, radiologist's
--- NOTE | 2024-05-13 10:23 | PM.IMPN ---
Progress Note: A&P Assessment and Plan (1) Obstructive sleep apnea: Code(s): G47.33 - Obstructive sleep apnea (adult) (pediatric) Status: Acute (2) Hypertension: Code(s): I10 - Essential (primary) hypertension Status: Acute (3) Chronic kidney disease: Code(s): N18.9 - Chronic kidney disease, unspecified Status: Acute (4) Mild dehydration: Code(s): E86.0 - Dehydration Status: Acute (5) Hypernatremia: Code(s): E87.0 - Hyperosmolality and hypernatremia Status: Acute (6) Acute respiratory failure with hypercapnia: Code(s): J96.02 - Acute respiratory failure with hypercapnia Status: Acute (7) Chronic obstructive pulmonary disease: Code(s): J44.9 - Chronic obstructive pulmonary disease, unspecified Status: Acute Plan This is a 78-year-old female with PMH obesity, COPD, hypertension, hyperlipidemia, WPW, history of stroke without residual deficits (on xarelto), GERD, history of DVT, CKD unknown stage. Patient typically gets her care at [facility]. She was recently treated for UTI. reports she has appeared of and foggy sitting upwards of 16 hours a day. 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 EMS summoned and patient administered DuoNeb on the way to hospital. Eventually placed on BiPAP and admitted on 05/03/2024 for acute hypoxic and hypercarbic respiratory failure. Acute on chronic respiratory failure with CO2 retention, acute metabolic encephalopathy upon arrival Possible due to COPD exam the patient and obesity hypoventilation syndrome -on admission 05/03 pCO2 61.6 --> 53.5. Suspecting noncompliance with CPAP with COPD, - reports she was altered at home. Likely secondary to CO2 narcosis. Patient is now A&O x3. -globally weak. Consult PT OT. recommend HHS with PT -CXR w/ b/l atelectasis, no cough, fever, or leukocytosis. -on 05/07, CT performed, demonstrating bilateral lower lobe atelectasis with small pleural effusion on the left, mild to moderate kyphoscoliosis. Pulmonology recs appreciated. Placed on BiPAP again repeat ABG in 1 hour. Repeat ABG in the morning again. 6/20. No improvement on ABG, patient is on BiPAP, repeated ABG showed worsening CO2 retention. Per nurse report, patient has declined intubation if condition continues to worse 05/12 Patient condition continued to improve, now patient is on 2 L oxygen via nasal cannula, pulse ox 100%, x-ray is done today, radiologist's reports mild pulmonary congestion, comparing previous xr, no sig changes, patient feels dyspnea is improved hypernatremia/dehydration -due to poor oral intake -resolved status post fluid resuscitation. - worried the patient not eating Started D5 1/2NS 05/08 Dehydration has corrected Decrease D5 half-normal saline to 75 mL/hour 05/11 Patient appetite is improving, stop IV fluid. 05/12 Acute on chronic renal failure On no baseline Upon arrival creatinine is 2.6, patient has a poor intake, hypotension, possible secondary to poor intake and patient received fluid resuscitation. received D51/2NS now BP is stable and kidney function is improving, dc iv fluid 05/12 essential hypertension -currently at goal. 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 WPW/preexcitation syndrome/a fib -patient follows with Dr. Lewis at [facility]. Obtain last note from the office and there is no significant notation on the WPW. For, patient reports she had an ablation previously which failed. However, patient has been on metoprolol home. She likely had and an aggravation of this due to her RACHELLE noncompliance and hypercapnia and hypoxia on admission. admission EKG with delta wave and short IL/long QRS. On 05/05 the patient entered wide QRS irregular rate in the 130s to 150s. Started on amiodraone and pt converted. - 05/06 Dr. Christianson consultation appreciated. d/c amiodarone. cont LEASE OPERATOR metoprolol. co
[2024-05-13] MEDS: ACETAMINOPHEN 325 MG TABLET 650 MG PO (11:22)
--- NOTE | 2024-05-13 11:29 | HOMEO2EVAL ---
Evaluation was performed at [facility] Home Oxygen Evaluation RC: Home Oxygen (O2) Evaluation Start: 05/12/24 13:44 Freq: ONCE Status: Active Protocol: RPE Activity Type Activity Date Activity User E-sign Co-sign Detail Recorded Client Recorded Date Recorded By Document 05/12/24 13:30 KRM [email or web address] 05/12/24 13:45 KRM Document 05/12/24 13:35 KRM [email or web address] 05/12/24 13:45 KRM 05/12/24 05/12/24 13:30 13:35 Home O2 Evaluation [Oxygen] -Test Phase Resting Resting -Oxygen Delivery Room Air Room Air [Pulse Oximetry] -Pulse Oximetry (90-100 %) 92 90 [Pulse Rate] -Pulse Rate (60-100 beats/min) 64 66 [Evaluation] -Activity Tolerance Poor [Comments] -Home Oxygen Evaluation Comments PT. WOULD NOT AMBULATE. I WAS ABLE TO GET HER TO DO ARM EXERCISES. NO O2 REQUIREMENTS . [Charges] -Evaluation Charges O2 Evaluation by Pulmonary RC: Home Oxygen (O2) Evaluation Start: 05/13/24 08:31 Freq: ONCE Status: Active Protocol: RPE Activity Type Activity Date Activity User E-sign Co-sign Detail Recorded Client Recorded Date Recorded By Document 05/13/24 11:00 CAROLINE [email or web address] 05/13/24 11:29 CAROLINE Document 05/13/24 11:03 CAROLINE [email or web address] 05/13/24 11:29 CAROLINE Document 05/13/24 11:04 CAROLINE [email or web address] 05/13/24 11:29 CAROLINE Document 05/13/24 11:05 CAROLINE [email or web address] 05/13/24 11:29 CAROLINE Document 05/13/24 11:15 CAROLINE [email or web address] 05/13/24 11:29 CAROLINE 05/13/24 05/13/24 05/13/24 11:00 11:03 11:04 Home O2 Evaluation [Oxygen] -Test Phase Resting Exercise Exercise -Oxygen Delivery Room Air Room Air Nasal Cannula -Oxygen Flow Rate (L/min) 1 [Pulse Oximetry] -Pulse Oximetry (90-100 %) 94 85 L 87 L [Pulse Rate] -Pulse Rate (60-100 beats/min) 70 96 [Comments] -Home Oxygen Evaluation Comments PT REQUIRES 2 L WITH ACTIVITY [Charges] -Evaluation Charges O2 Evaluation by Pulmonary 05/13/24 05/13/24 11:05 11:15 Home O2 Evaluation [Oxygen] -Test Phase Exercise Resting -Oxygen Delivery Nasal Cannula Room Air -Oxygen Flow Rate (L/min) 2 [Pulse Oximetry] -Pulse Oximetry (90-100 %) 90 93 [Pulse Rate] -Pulse Rate (60-100 beats/min) 90 76 [Comments] -Home Oxygen Evaluation Comments [Charges] -Evaluation Charges
--- NOTE | 2024-05-13 11:30 | PCRCNOTE ---
HOMEO2 EVAL REPEATED, PT DOES REQUIRE 2 L WITH ACTIVITY, ROOM AIR AT REST AND 3 L WITH NIV BLEED-IN. PT HAS VIEMED DME FOR O2/NIV EQUIPMENT
== END 2024-05-13 15:20 | disposition home health service (06) | DRG 189 ==
LOC: ANHED 14:08 → ANHIMU 15:23 → ANH2MED 05-12 13:28 → ANHIMU 05-14 11:38
PROVIDERS: Emergency Medicine; Internal Medicine Cardiovascular Disease; Internal Medicine Pulmonary Disease; Physician Assistant; Admitting Provider General Practice; Emergency Provider Emergency Medicine; PCP Internal Medicine; Visit Provider Hospitalist
DX: J96.22 Acute and chronic respiratory failure with hypercapnia (principal); G93.41 Metabolic encephalopathy; E87.0 Hyperosmolality and hypernatremia; N17.9 Acute kidney failure, unspecified; E87.29 Other acidosis; G47.33 Obstructive sleep apnea (adult) (pediatric); J96.02 Acute respiratory failure with hypercapnia; J96.01 Acute respiratory failure with hypoxia; J44.9 Chronic obstructive pulmonary disease, unspecified; I45.6 Pre-excitation syndrome; I48.91 Unspecified atrial fibrillation; I12.9 Hypertensive chronic kidney disease with stage 1 through stage 4 chronic kidney disease, or unspecified chronic kidney disease; N18.9 Chronic kidney disease, unspecified; E86.0 Dehydration; E78.5 Hyperlipidemia, unspecified; K21.9 Gastro-esophageal reflux disease without esophagitis; M41.9 Scoliosis, unspecified; Z20.822 Contact with and (suspected) exposure to COVID-19; Z86.73 Personal history of transient ischemic attack (TIA), and cerebral infarction without residual deficits; Z86.718 Personal history of other venous thrombosis and embolism; Z79.01 Long term (current) use of anticoagulants; Z91.199 Patient's noncompliance with other medical treatment and regimen due to unspecified reason
CPT/HCPCS: 36415; 36600; 71045; 71046; 71250; 80048; 80053; 81001; 82375; 82805; 82948; 83050; 83735; 84484; 85025; 85027; 85055; 85610; 85730; 87637; 93005; 94002; 94003; 94618; 94640; 94762; 97110; 97116; 97161; 97165; 97530; 97535; 99285; A9270; C8929; J0282; J1940; J2405; J7030; J7070; Q9957

== ENCOUNTER 2024-05-14 10:47 | Inpatient (IN) | payer MEDICARE, OTHER, SELFPAY ==
[2024-05-14] VITALS (23 sets, daily range): BP systolic 139–197; BP diastolic 56–101; PULSE 61–89; RESP 17–33; TEMP 36.8–37.2; O2SAT 82–99; BMI 38.4
--- NOTE | ~2024-05-14 | CT_ITS ---
CT brain wo con Ordering provider: Kandis Clark APRN History: 78 years Female with . rule out CVA . Comparison: None. Technique: CT of the head without contrast. Radiation reduction technique utilized. DLP is 605.33 mGy. FINDINGS: BRAIN PARENCHYMA AND CSF SPACES: Old lacunar infarct in the right thalamus. No midline shift, mass ef fect or hemorrhage. The brain parenchyma and CSF spaces are otherwise normal. VISUALIZED PARANASAL SINUSES: Right sphenoid sinus disease. MASTOIDS: Well aerated. BONES: The bones appear intact. SOFT TISSUES: Visualized nasopharynx is normal. Superficial soft tissues are normal. IMPRESSION: No acute intracranial findings. Reviewed, dictated and finalized at location A.
--- NOTE | ~2024-05-14 | XR_ITS ---
EXAMINATION: XR chest 1V portable DATE: 05/17/2024 10:48 INDICATION: Shortness of breath TECHNIQUE: frontal view of the chest was obtained. COMPARISON: Chest radiograph dated 05/14/2024 FINDINGS: Reason is rotated towards the left. There a couple bandlike opacities at the medial left lower lobe c onsistent with discoid atelectasis. Blunting at the left costophrenic angle. No other airspace opacit ies, pulmonary edema, pleural effusion effusion or pneumothorax. Mild cardiomegaly. Old healed proxim al left humeral fracture with plate and screw fixation. IMPRESSION: 1. Opacities at the left lower lung zone which could represent atelectasis and/or pneumonia. Reviewed, dictated and finalized at location A. IMPRESSION: 1. Opacities at the left lower lung zone which could represent atelectasis and/ or pneumonia.
--- NOTE | ~2024-05-14 | XR_ITS ---
XR chest 2V Ordering provider: Viet Apple III, DO History: 78 years Female with . sob . Comparison: May 11, 2024 FINDINGS: MEDIASTINUM: The cardiac silhouette is slightly enlarged. Congestive tony. LUNGS: No infiltrates, effusions or pneumothorax. Prominent markings in the left lung base. OTHER: No free air under the diaphragm. Postoperative changes in the left shoulder. IMPRESSION: Prominent markings in the left lung base. Early pneumonia cannot be excluded. Reviewed, dictated and finalized at location A.
--- NOTE | ~2024-05-14 | MR_ITS ---
EXAMINATION: MR brain/brain stem wo con DATE: 05/18/2024 10:56 INDICATION: Altered mental status TECHNIQUE: Magnetic resonance imaging (MRI) of the brain and brainstem was performed without intraven ous contrast. Sequences included sagittal and axial T1-weighted SE, axial diffusion-weighted FS SE, a xial T2*-weighted GRE, axial T2-weighted FLAIR, and axial T2-weighted FSE. Apparent diffusion coeffic ient (ADC) maps were created. COMPARISON: None. FINDINGS: Small old right thalamic infarct. There are no areas of restricted diffusion to suggest acute infarct ion. No intracranial hemorrhage or abnormal intracranial mass lesion. There are scattered areas of no nspecific increased T2-weighted signal intensity in the cerebral white matter, predominantly involvin g the deep and periventricular white matter. There are no intraparenchymal signal abnormalities seen on the other pulse sequences. The ventricles are symmetric and normal in size. There are no abnormal extra-axial fluid collections. Flow voids are seen in the cerebral arteries on the T2-weighted sequen luisana consistent with their expected patency. Visualized orbits and soft tissues are unremarkable. IMPRESSION: 1. Old right thalamic lacunar infarct. No acute intracranial process. Reviewed, dictated and finalized at location A.
--- NOTE | 2024-05-14 10:46 | ECG_ITS ---
Test Date: 2024-05-14 10:46:13 Measurements Intervals [place] Rate: 70 P: 37 ID: [id number] QRS: -43 QRSD: 109 T: 55 QT: 422 QTc: 458 Interpretive Statements DIFFICULT TO DISCERN UNDERLYING RHYTHM DUE TO SIGNIFICANT BASELINE ARTIFACT. POSSIBLE RIGHT VENTRICULAR CONDUCTION DELAY [RSR (QR) IN V1/V2] LEFT VENTRICULAR HYPERTROPHY AND ST-T CHANGE [VOLTAGE CRITERIA PLUS ST/T ABNORMALITY] INFERIOR MYOCARDIAL INFARCTION , PROBABLY OLD [40+ ms Q WAVE AND/OR ST/T ABNORMALITY IN II/aVF] Compared to ECG 05/07/2024 23:10:44 DIFFICULT TO DISCERN UNDERLYING RHYTHM DUE TO SIGNIFICANT BASELINE ARTIFACT. Electronically Signed On 05-15-2024 13:29:26 CDT by Trinity Aguayo M.D.
--- NOTE | 2024-05-14 10:59 | ED.SOB ---
HPI - SOB/Dyspnea General Chief Complaint: Shortness of Breath/Dyspnea Stated Complaint: SOB History of Present Illness HPI Narrative: Pt just discharged from hospital yesterday with CHF/COPD per patient. Pt says she felt fine on discharge yesterday but has become more SOB over the last few hours today. Pt denies CP. Pt denies cough. Pt has 99 temp here. Pt says she has some LE edema which she thinks is worse. Related Data Home Medications Medication Instructions Recorded Confirmed allopurinol 100 mg tablet 100 mg PO DAILY 05/03/24 05/14/24 atorvastatin 80 mg tablet 80 mg PO DAILY 05/03/24 05/14/24 baclofen 10 mg tablet 10 mg PO TID 05/03/24 05/14/24 calcitriol 0.25 mcg capsule 0.25 mcg PO BID 05/03/24 05/14/24 ergocalciferol (vitamin D2) 1,250 50,000 unit PO MONTHLY 05/03/24 05/14/24 mcg (50,000 unit) capsule gabapentin 300 mg capsule 300 mg PO DAILY 05/03/24 05/14/24 losartan 25 mg tablet 25 mg PO DAILY 05/03/24 05/14/24 metoprolol succinate 50 mg 50 mg PO DAILY 05/03/24 05/14/24 tablet,extended release 24 hr pantoprazole 40 mg tablet,delayed 40 mg PO DAILY 05/03/24 05/14/24 release rivaroxaban 20 mg tablet (Xarelto) 20 mg PO DAILY 05/03/24 05/14/24 Allergies Allergy/AdvReac Type Severity Reaction Status Date / Time Penicillins Allergy Unknown Verified 03/03/09 12:16 Review of Systems Review of Systems: All systems reviewed & are unremarkable except as noted in HPI and below [facility] Past Medical History Medical History (Updated 05/14/24 @ 14:16 by Kandis Clark APRN) Atrial fibrillation Cerebrovascular accident Chronic kidney disease Chronic obstructive pulmonary disease Deep venous thrombosis Gastroesophageal reflux disease Hyperlipidemia Hypertension Obstructive sleep apnea Does not use CPAP. WPW (Fupok-Dqgspwnef-Zjkyj syndrome) Surgical History Surgical History History of hysterectomy History of shoulder surgery Family History Family History Mother Dementia Father Myocardial disease Social History Social History Social History: Surrogate medical decision maker: Rodríguez Arechiga, spouse. Code status: Full code. Smoking status: Never smoker Alcohol intake: never Substance use: never Do You Feel Safe in your Home?: Yes Lack of Transportation: No Lack of Food: Never True Current Housing: I Have Housing Concerned About Future Housing: No Difficulty Paying Gas/Electric Bills: No Difficulty Paying for Meds: No Currently Unemployed: No Education: High School Diploma/GED Difficulty w/ Childcare or Family Care: No Spiritual care concerns: No Exam Const: General: healthy appearing and no acute distress Nutritional Appearance: well nourished Orientation/consciousness: patient oriented x3 Limitations: no limitations Neck: Neck: normal visual inspection and no meningeal signs Chest: Chest palpation & inspection: normal inspection of the chest Resp: Effort & Inspection: normal respiratory effort Auscultation: crackles and diminished lung sounds Cardio: Rate: regular rate Rhythm: regular rhythm GI: GI Palp: Yes Soft to palpation and No Tenderness to palpation present (GI) Auscultation: normal bowel sounds Skin: General skin exam: normal color Rashes: no rashes Wounds: no wounds Neuro: General: patient oriented x3, moves all extremities, no meningeal signs, no focal motor deficits and CN's II-XI intact bilaterally Speech: normal speech Extrem: General: edema bilateral Psych: Mental Status: mental status grossly normal Affect: normal affect Attitude: cooperative Course Vital Signs Vital signs: Vital Signs Temperature 99 F 05/14/24 10:47 Pulse Rate 70 05/14/24 10:47 Respiratory Rate 33 H 05/14/24 10:47 Blood Pressure 197/101 H 05/14/24 10:47 Pulse Oximetry
[2024-05-14] MEDS: IPRATROPIUM 0.5 MG/ALBUTEROL SULFATE 2.5 MG AMPUL.NEB 3 ML INHALATION ×5 (11:10→20:48)
[2024-05-14 12:13] LABS: Basophils Percent Auto 0.4 % (0.2-1.2); Eosinophils Absolute Auto 0.1 K/mm3 (0-0.3); Eosinophils Percent Auto 0.9 % (0-4.4); Hematocrit 34.9 % (37.0-47.0); Hemoglobin 10.8 g/dL (12.0-15.0); Immature Granulocyte Absolute 0.09 K/mm3 (0.00-0.031); Immature Granulocyte Percent A 1.7 % (0-0.5); Lymphocytes Absolute Auto 1.05 K/mm3 (0.9-3.2); Lymphocytes Percent Auto 19.5 % (18.3-44.2); Mean Corpuscular HGB Conc 30.9 g/dl (32-36); Mean Corpuscular Volume 93.8 fl (80-100); Mean Platelet Volume 10.9 fl (7.4-10.4); Monocytes Absolute Auto 0.4 K/mm3 (0.1-0.6); Monocytes Percent Auto 6.7 % (2.6-8.5); Neutrophils Absolute Auto 3.8 K/mm3 (1.3-6.7); Neutrophils Percent Auto 70.8 % (45.5-73.1); Platelet Count Result 140 k/mm3 (150-375); Red Blood Count 3.72 M/mm3 (4.2-5.4); White Blood Count 5.4 K/mm3 (4.5-10.0)
[2024-05-14 12:24] LABS: INR 1.9; Prothrombin Time 22.2 Seconds (11.1-14.7)
[2024-05-14 12:25] LABS: Partial Thromboplastin Time 32.5 Seconds (22.3-36.8)
[2024-05-14 12:31] LABS: Alanine Aminotransferase 16 U/L (6-35); Albumin Level 3.7 g/dL (3.5-5.1); Alkaline Phosphatase 95 U/L (38-126); Anion Gap 2 mmol/L (4-12); Aspartate Amino Transferase 35 U/L (14-36); Blood Urea Nitrogen 14 mg/dL (7-17); Calcium 8.7 mg/dL (8.4-10.2); Carbon Dioxide 34 mmol/L (22-30); Chloride 107 mmol/L (98-107); Estimated Glomerular Filt Rate 26; Glucose 94 mg/dL (65-110); Magnesium 2.3 mg/dL (1.6-2.3); Potassium 3.3 mmol/L (3.4-5.0); Sodium 143 mmol/L (137-145)
[2024-05-14 12:42] LABS: NT Pro B Type Natriuretic Pept 4770 pg/mL (19.9-100); Troponin I 0.018 ng/mL (0.000-0.034)
--- NOTE | 2024-05-14 13:28 | PM.IMHP ---
H&P: HPI History of Present Illness Date/Time: 05/14/24 13:28 Chief Complaint: Shortness of breath, dyspnea Narrative: This is a 78-year-old female AFib, CVA, chronic kidney disease, COPD, DVT, GERD, hyperlipidemia, hypertension, sleep apnea, Ngnoq-Omwpokzww-Fmqco syndrome who presented to the hospital today with tachypnea and shortness of breath/dyspnea. Patient provides the following history. She states that when she was discharged home yesterday she felt pretty decent however through the night she felt that she was becoming more short of breath and was not tolerating her CPAP. [facility] came and seen her in the morning and suggested that she come back to the hospital as her work of breathing continue to look worse through the day. Patient was just admitted and discharged yesterday for CHF/COPD exacerbation however she was improved and feeling better at the time of discharge. During her admission patient was dehydrated and Lasix was held. Patient normally takes 20 mg of Lasix daily and this was also held on discharge. On examination today patient is alert and oriented x3, lying in the bed. She is short of breath at rest. Crackles noted right greater than left. She also has 1 to 2+ pitting edema to bilateral lower extremities. She denies any fever, chills, vomiting, diarrhea, abdominal pain, chest pain. She endorses shortness of breath, and nausea. Workup in hospital today included a chest x-ray which shown prominent markings in the left lung base which could be early pneumonia. Labs today showed white blood cell count of 5.4, hemoglobin 10.8, INR 1.9, potassium 3.3, creatinine 1.9, EGFR 26, proBNP 4770, troponin 0.018. Blood cultures were obtained and pending. Echo from 05/05/2024 was reviewed and showed normal LV systolic function with the estimated EF of 70%, grade 1 diastolic dysfunction. Patient was given DuoNeb breathing treatments, cefepime, and vancomycin while in the ED. She will likely need diuresis. Review of Systems Review of Systems: All systems reviewed & are unremarkable except as noted in HPI and below Constitutional: Constitutional: Reports as per HPI and Reports no additional constitutional complaints Eyes: Eyes: Reports as per HPI and Reports no additional eye complaints ENT: Reports system reviewed and no additional complaints, except as documented and Reports as per HPI Cardiovascular: Cardiovascular: Reports as per HPI and Reports no additional cardiovascular complaints Respiratory: Respiratory: Reports as per HPI and Reports no additional respiratory complaints Gastrointestinal: Gastrointestinal: Reports as per HPI and Reports no additional gastrointestinal complaints Genitourinary: Genitourinary: Reports no additional female genitourinary complaints and Reports as per HPI Musculoskeletal: Musculoskeletal: Reports no additional musculoskeletal complaints and Reports as per HPI Integumentary/Breasts: Skin/Breast: Reports system reviewed and no additional complaints, except as docu and Reports as per HPI Neurologic: Reports system reviewed and no additional complaints, except as documented and Reports as per HPI Psychiatric: Psychiatric: Reports no additional psychiatric complaints and Reports as per HPI [facility] Past Medical History Medical History (Updated 05/14/24 @ 14:16 by Kandis Clark APRN) Atrial fibrillation Cerebrovascular accident Chronic kidney disease Chronic obstructive pulmonary disease Deep venous thrombosis Gastroesophageal reflux disease Hyperlipidemia Hypertension Obstructive sleep apnea Does not use CPAP. WPW (Txilj-Iwlyzszrg-Txfix syndrome) Surgical History Surgical History History of hysterectomy History of shoulder surgery Family History Family History Mother Dementia Father Myocardial disease Social History Social History (Reviewed 05/14/24 @ 13:55 b
[2024-05-14 13:39] LABS: Lactic Acid Reflex 0.8 mmol/L (0.7-2.0)
[2024-05-14 13:48] LABS: CRP < 0.5 mg/dL (<1.0)
[2024-05-14 14:04] LABS: Alveolar/Arterial O2 Gradient 32.4 mmHg; Base Excess ABG 1.5 mEq/l (+/-2.0); Fractional Inspired Oxygen 24 %; HCO3 ABG 27.9 mEq/l (22.0-26.0); Oxygen Content ABG 15.6 %vol (16.0-22.0); Oxygen Saturation ABG 94.5 % (95.0-100.0); Oxyhemoglobin 95.3 % THb (90.0-100.0); PO2 ABG 76.8 mmHg (80.0-100.0); Total Hemoglobin 11.6 g/dL (12.0-18.0); pH ABG 7.347 (7.350-7.450)
[2024-05-14 14:07] LABS: Device NASAL CANNULA; Site Drawn LEFT RADIAL
[2024-05-14 14:13] LABS: Procalcitonin 0.5 ng/mL
[2024-05-14] MEDS: CEFEPIME 2 GM/NS 50 ML 2 GM/50 ML BAG IVPB (14:14)
[2024-05-14 14:31] LABS: Influenza A QL RT-PCR Negative (Negative); Influenza B QL RT-PCR Negative (Negative); RSV RNA, RT-PCR Negative (Negative); SARS-CoV-2 RNA PCR Negative (Negative)
[2024-05-14 14:31] LABS: Appearance Urine Cloudy (Clear); Bacteria Urine 4+ /hpf; Bilirubin Urine Negative (Negative); Blood Urine Trace (Negative); Color Urine Yellow (Yellow); Glucose Urine UA 1+ mg/dL (Negative); Ketones Urine Negative (Negative); Leukocyte Esterase Ur Negative LEU/UL (Negative); Need Manual Microscopic Reviewed; Nitrate Urine Negative (Negative); Protein Urine 2+ mg/dL (Negative); RBC Urine 21-50 /hpf (0-2); Specific Grav Ur 1.014 (1.001-1.035); Squamous Epithelial Cell Urine Moderate /hpf (Few); Urobilinogen Urine 0.2 mg/dL (<2.0); WBC Urine 0-5 /hpf (0-3); pH Urine 8.5 (5.0-9.0)
[2024-05-14 14:32] LABS: Add Urine Microscopic? YES
--- NOTE | 2024-05-14 14:35 | ADMGEN ---
This patient, Adriana Arechiga, was admitted to Medical Room 243-01. Patient/family oriented to hospital policies and general routines including ID bracelet, bed and alarms, visiting hours, pain management, procedures, bathroom and other care routines, personal items, smoking policy, room service/diet, and visiting hours. Information on how to activate the Rapid Response Team has been discussed. Patient/Family are encouraged to report perceived risks to care and to ask questions if they do not understand what they are told or what they should do.
[2024-05-14] MEDS: VANCOMYCIN 1,250 MG/NS 250 ML 1,250 MG/250 ML BAG 166.67 MG IVPB (15:02)
[2024-05-14] MEDS: FUROSEMIDE INJ 40 MG/4 ML VIAL IV PUSH (15:07)
[2024-05-14 15:08] LABS: MRSA (PCR) NOT DETECTED (NOT DETECTE)
[2024-05-14] MEDS: ACETAMINOPHEN 325 MG TABLET 650 MG PO (17:54)
[2024-05-15] VITALS (21 sets, daily range): BP systolic 112–141; BP diastolic 54–85; PULSE 51–122; RESP 18–24; TEMP 36.4–36.7; O2SAT 92–98
[2024-05-15] MEDS: METOPROLOL TARTRATE INJ 5 MG/5 ML VIAL IV PUSH (03:44)
[2024-05-15 04:46] LABS: Basophils Percent Auto 0.7 % (0.2-1.2); Eosinophils Percent Auto 0.7 % (0-4.4); Hematocrit 35.9 % (37.0-47.0); Hemoglobin 11.1 g/dL (12.0-15.0); Immature Granulocyte Absolute 0.05 K/mm3 (0.00-0.031); Immature Granulocyte Percent A 0.9 % (0-0.5); Lymphocytes Absolute Auto 0.78 K/mm3 (0.9-3.2); Lymphocytes Percent Auto 14.1 % (18.3-44.2); Mean Corpuscular HGB Conc 30.9 g/dl (32-36); Mean Corpuscular Hemoglobin 28.8 pg (26-34); Mean Platelet Volume 11.1 fl (7.4-10.4); Monocytes Absolute Auto 0.5 K/mm3 (0.1-0.6); Monocytes Percent Auto 9.2 % (2.6-8.5); Neutrophils Absolute Auto 4.1 K/mm3 (1.3-6.7); Neutrophils Percent Auto 74.4 % (45.5-73.1); Platelet Count Result 158 k/mm3 (150-375); Red Blood Count 3.86 M/mm3 (4.2-5.4); Red Cell Distribution Width 14.4 % (11.5-14.5); White Blood Count 5.6 K/mm3 (4.5-10.0)
[2024-05-15] MEDS: dilTIAZem HCL 30 MG TABLET PO ×2 (04:46→05:50)
[2024-05-15 05:13] LABS: NT Pro B Type Natriuretic Pept 6470 pg/mL (19.9-100)
[2024-05-15 05:17] LABS: Alanine Aminotransferase 17 U/L (6-35); Albumin Level 3.8 g/dL (3.5-5.1); Alkaline Phosphatase 80 U/L (38-126); Anion Gap 5 mmol/L (4-12); Aspartate Amino Transferase 39 U/L (14-36); Blood Urea Nitrogen 17 mg/dL (7-17); Calcium 8.6 mg/dL (8.4-10.2); Carbon Dioxide 33 mmol/L (22-30); Chloride 106 mmol/L (98-107); Estimated Glomerular Filt Rate 26; Glucose 99 mg/dL (65-110); Potassium 3.3 mmol/L (3.4-5.0); Sodium 144 mmol/L (137-145)
[2024-05-15] MEDS: IPRATROPIUM 0.5 MG/ALBUTEROL SULFATE 2.5 MG AMPUL.NEB 3 ML INHALATION ×3 (07:17→20:14)
--- NOTE | 2024-05-15 07:29 | P.PNIM_ITS ---
Progress Note: A&P Assessment and Plan (1) Pneumonia: Code(s): J18.9 - Pneumonia, unspecified organism Status: Acute Assessment and Plan: 05/14/24: * Chest x-ray showing possible pneumonia * Patient started on cefepime and vancomycin * Continue DuoNebs * Patient currently on 2 L nasal cannula which is her baseline * Will check a procalcitonin, mycoplasma, urine strep, urine Legionella * Continue cardiac monitoring * Blood cultures obtained and are pending * Will obtain a sputum culture if possible * Will also check respiratory panel COVID, flu, RSV * Will check MRSA PCR and if negative deescalate the vancomycin * ABG showing mild respiratory acidosis with partial compensation, pH of 7.347, pCO2 52.0, PO2 76.8, bicarb 27.9 * Will give 40 mg IV lasix x1 now and start Lasix 40 mg BID 05/15/24: * Continue diuresis with Lasix 40 mg IV b.i.d. * Continue DuoNeb * Continue cefepime, vancomycin deescalated as MRSA PCR was negative * Blood culture showing no growth preliminary read * Respiratory panel negative for COVID, flu, RSV * Procalcitonin 0.5, mycoplasma, urine strep, urine Legionella all pending * Continue cardiac monitoring (2) Chronic obstructive pulmonary disease: Code(s): J44.9 - Chronic obstructive pulmonary disease, unspecified Status: Acute Assessment and Plan: 05/14/24: * Currently on 2 L nasal cannula which is her baseline * See above plan of care 05/15/24: * See above plan of care (3) Chronic kidney disease: Code(s): N18.9 - Chronic kidney disease, unspecified Status: Acute Assessment and Plan: 05/14/24: * Creatinine 1.9, EGFR 26 * Baseline creatinine 1.84, EGFR 27 per her primary care doctor's office * she appears to be fluid overloaded on examination. * I will give her a dose of IV Lasix to see if we can improve her kidney function and then schedule Lasix 40 mg IV BID starting tomorrow. 05/15/24: * Creatinine 1.9, EGFR 26 * Continue with current treatment plan (4) Hypertension: Code(s): I10 - Essential (primary) hypertension Status: Chronic Assessment and Plan: 05/14/24: * Blood pressure ranging 149/72 to 197/101 * Continue losartan 05/15/24: * No change to current treatment plan (5) Obstructive sleep apnea: Code(s): G47.33 - Obstructive sleep apnea (adult) (pediatric) Status: Acute Assessment and Plan: 05/14/24: * CPAP at night 05/15/24: * No change to current treatment plan (6) Atrial fibrillation: Code(s): I48.91 - Unspecified atrial fibrillation Status: Chronic Assessment and Plan: 05/14/24: * Continue Xarelto and metoprolol * EKG shows AFib with RVR with a rate of 112 05/15/24: * Heart rate 100-119 * No change to current treatment plan (7) Hyperlipidemia: Code(s): E78.5 - Hyperlipidemia, unspecified Status: Chronic Assessment and Plan: 05/14/24: * Continue atorvastatin 05/15/24: * No change to current treatment plan Time Spent With Patient Time with patient: 15 - 25 minutes Subjective Date/time seen: 05/15/24 07:29 Interval history: 05/14/24: This is a 78-year-old female AFib, CVA, chronic kidney disease, COPD, DVT, GERD, hyperlipidemia, hypertension, sleep apnea, Fvrpn-Nygqyflcx-Skwsi syndrome who presented to the hospital today with tachypnea and shortness of breath/dyspnea. Patient provides the following history. She states that when she was discharged home yesterday she felt pretty decent however through the night she felt conrado
--- NOTE | 2024-05-15 07:29 | PM.IMPN ---
Progress Note: A&P Assessment and Plan (1) Pneumonia: Code(s): J18.9 - Pneumonia, unspecified organism Status: Acute Assessment and Plan: 05/14/24: Chest x-ray showing possible pneumonia Patient started on cefepime and vancomycin Continue DuoNebs Patient currently on 2 L nasal cannula which is her baseline Will check a procalcitonin, mycoplasma, urine strep, urine Legionella Continue cardiac monitoring Blood cultures obtained and are pending Will obtain a sputum culture if possible Will also check respiratory panel COVID, flu, RSV Will check MRSA PCR and if negative deescalate the vancomycin ABG showing mild respiratory acidosis with partial compensation, pH of 7.347, pCO2 52.0, PO2 76.8, bicarb 27.9 Will give 40 mg IV lasix x1 now and start Lasix 40 mg BID 05/15/24: Continue diuresis with Lasix 40 mg IV b.i.d. Continue DuoNeb Continue cefepime, vancomycin deescalated as MRSA PCR was negative Blood culture showing no growth preliminary read Respiratory panel negative for COVID, flu, RSV Procalcitonin 0.5, mycoplasma, urine strep, urine Legionella all pending Continue cardiac monitoring (2) Chronic obstructive pulmonary disease: Code(s): J44.9 - Chronic obstructive pulmonary disease, unspecified Status: Acute Assessment and Plan: 05/14/24: Currently on 2 L nasal cannula which is her baseline See above plan of care 05/15/24: See above plan of care (3) Chronic kidney disease: Code(s): N18.9 - Chronic kidney disease, unspecified Status: Acute Assessment and Plan: 05/14/24: Creatinine 1.9, EGFR 26 Baseline creatinine 1.84, EGFR 27 per her primary care doctor's office she appears to be fluid overloaded on examination. I will give her a dose of IV Lasix to see if we can improve her kidney function and then schedule Lasix 40 mg IV BID starting tomorrow. 05/15/24: Creatinine 1.9, EGFR 26 Continue with current treatment plan (4) Hypertension: Code(s): I10 - Essential (primary) hypertension Status: Chronic Assessment and Plan: 05/14/24: Blood pressure ranging 149/72 to 197/101 Continue losartan 05/15/24: No change to current treatment plan (5) Obstructive sleep apnea: Code(s): G47.33 - Obstructive sleep apnea (adult) (pediatric) Status: Acute Assessment and Plan: 05/14/24: CPAP at night 05/15/24: No change to current treatment plan (6) Atrial fibrillation: Code(s): I48.91 - Unspecified atrial fibrillation Status: Chronic Assessment and Plan: 05/14/24: Continue Xarelto and metoprolol EKG shows AFib with RVR with a rate of 112 05/15/24: Heart rate 100-119 No change to current treatment plan (7) Hyperlipidemia: Code(s): E78.5 - Hyperlipidemia, unspecified Status: Chronic Assessment and Plan: 05/14/24: Continue atorvastatin 05/15/24: No change to current treatment plan Time Spent With Patient Time with patient: 15 - 25 minutes Subjective Date/time seen: 05/15/24 07:29 Interval history: 05/14/24: This is a 78-year-old female AFib, CVA, chronic kidney disease, COPD, DVT, GERD, hyperlipidemia, hypertension, sleep apnea, Kzppl-Krhojzvpi-Rbqhp syndrome who presented to the hospital today with tachypnea and shortness of breath/dyspnea. Patient provides the following history. She states that when she was discharged home yesterday she felt pretty decent however through the night she felt that she was becoming more short of breath and was not tolerating her CPAP. Home health came and seen her in the morning and suggested that she come back to the hospital as her work of breathing continue to look worse through the day. Patient was just admitted and discharged yesterday for CHF/COPD exacerbation however she was improved and feeling better at the time of discharge. During her admission patient was dehydrated and Lasix was held. Patient normally takes 20 mg of Lasi
--- NOTE | 2024-05-15 08:45 | PM.CNCAR ---
Assessment and Plan Assessment and plan (1) Atrial fibrillation: Code(s): I48.91 - Unspecified atrial fibrillation Status: Chronic Assessment and Plan: History of paroxysmal atrial fibrillation. Currently in sinus rhythm. When she goes intro atrial fibrillation, she has intermittent RVR with rate in the 130's with which she is asymptomatic. I am going to increase her metoprolol to 75mg daily. Continue anticoagulation with Xarelto 20mg daily. Continue to monitor on telemetry. 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 Needs outpatient follow up with EP. History of Present Illness History of Present Illness Consult date/time: 05/15/24 08:45 Requesting physician: Kandis Clark APRN Consult reason: atrial fibrillation Reason For Visit: Pneumonia Narrative: Adriana Arechiga is a 78 year old woman with atrial fibrillation and Aqjm-Fnwqsltri-Cdxwg syndrome. She follows with Dr. Lewis at [facility]. She presents to the hospital with a chief complaint of shortness of breath. She was just discharged from the hospital on 05/13/24 after being treated for a COPD and CHF exacerbation. She states upon discharge she felt well and had no shortness of breath but the night she went home and applied her CPAP she became dyspneic and felt she couldn't catch her breath. Her breathing became progressively worse and she was told to come to the ED by a visiting nurse. Cardiology is being asked to see her to help manage atrial fibrillation. She has paroxysmal atrial fibrillation with intermittent rapid ventricular response. She denies feeling any palpitations or chest pain. Resting comfortably in bed at the time of my evaluation and has no cardiac complaints. She does have some muscle soreness in her neck. Review of Systems Review of Systems: All systems reviewed & are unremarkable except as noted in HPI and below PMFSH Past Medical History Medical History Atrial fibrillation Cerebrovascular accident Chronic kidney disease Chronic obstructive pulmonary disease Deep venous thrombosis Gastroesophageal reflux disease Hyperlipidemia Hypertension Obstructive sleep apnea Does not use CPAP. WPW (Ziiec-Tjjgmaidr-Iwhkm syndrome) Surgical History Surgical History History of hysterectomy History of shoulder surgery Family History Family History Mother Dementia Father Myocardial disease Social History Social History Social History: Surrogate medical decision maker: Rodríguez Geni, spouse. Code status: Full code. Smoking status: Never smoker Alcohol intake: never Substance use: never Do You Feel Safe in your Home?: Yes Lack of Transportation: No Lack of Food: Never True Current Housing: I Have Housing Concerned About Future Housing: No Difficulty Paying Gas/Electric Bills: No Difficulty Paying for Meds: No Currently Unemployed: No Education: High School Diploma/GED Difficulty w/ Childcare or Family Care: No Spiritual care concerns: No Meds Home Medications and Allergies Home Medications Medication Instructions Recorded Confirmed Type allopurinol 100 mg tablet 100 mg PO DAILY 05/03/24 05/14/24 History atorvastatin 80 mg tablet 80 mg PO DAILY 05/03/24 05/14/24 History baclofen 10 mg tablet 10 mg PO TID 05/03/24 05/14/24 History calcitriol 0.25 mcg capsule 0.25 mcg PO BID 05/03/24 05/14/24 History ergocalciferol (vitamin D2) 1,250 50,000 unit PO MONTHLY 05/03/24 05/14/24 History mcg (50,000 unit) capsule gabapentin 300 mg capsule 300 mg PO DAILY 05/03/24 05/14/24 History losartan 25 mg tablet 25 mg PO DAILY 05/03/24 05/14/24
[2024-05-15] MEDS: allopurinoL 100 MG TABLET PO (09:04)
[2024-05-15] MEDS: PANTOPRAZOLE 40 MG TABLET PO (09:04)
[2024-05-15] MEDS: GABAPENTIN 300 MG CAPSULE PO (09:04)
[2024-05-15] MEDS: BACLOFEN 10 MG TABLET PO ×3 (09:05→17:22)
[2024-05-15] MEDS: calcitrioL 0.25 MCG CAPSULE PO ×2 (09:05→17:22)
[2024-05-15] MEDS: METOPROLOL SUCCINATE EXT REL 50 MG TABCR PO (09:05)
[2024-05-15] MEDS: LOSARTAN POTASSIUM 25 MG TABLET PO (09:05)
[2024-05-15] MEDS: ATORVASTATIN 40 MG TABLET 80 MG PO (09:05)
[2024-05-15] MEDS: CEFEPIME 2 GM/NS 50 ML 2 GM/50 ML BAG IVPB (09:05)
[2024-05-15] MEDS: ACETAMINOPHEN 325 MG TABLET 650 MG PO ×2 (09:21→17:23)
[2024-05-15] MEDS: FUROSEMIDE INJ 40 MG/4 ML VIAL IV PUSH ×2 (09:35→17:23)
[2024-05-15] MEDS: RIVAROXABAN 20 MG TABLET PO (17:22)
[2024-05-16] VITALS (24 sets, daily range): BP systolic 109–200; BP diastolic 60–110; PULSE 48–95; RESP 12–20; TEMP 36–36.7; O2SAT 94–100
[2024-05-16 05:05] LABS: Basophils Percent Auto 0.6 % (0.2-1.2); Eosinophils Percent Auto 0.8 % (0-4.4); Hematocrit 35.1 % (37.0-47.0); Immature Granulocyte Absolute 0.04 K/mm3 (0.00-0.031); Immature Granulocyte Percent A 0.8 % (0-0.5); Lymphocytes Absolute Auto 0.82 K/mm3 (0.9-3.2); Lymphocytes Percent Auto 15.4 % (18.3-44.2); Mean Corpuscular HGB Conc 31.3 g/dl (32-36); Mean Corpuscular Hemoglobin 29.2 pg (26-34); Mean Corpuscular Volume 93.1 fl (80-100); Mean Platelet Volume 11.2 fl (7.4-10.4); Monocytes Absolute Auto 0.5 K/mm3 (0.1-0.6); Monocytes Percent Auto 9.6 % (2.6-8.5); Neutrophils Absolute Auto 3.9 K/mm3 (1.3-6.7); Neutrophils Percent Auto 72.8 % (45.5-73.1); Platelet Count Result 163 k/mm3 (150-375); Red Blood Count 3.77 M/mm3 (4.2-5.4); Red Cell Distribution Width 14.3 % (11.5-14.5); White Blood Count 5.3 K/mm3 (4.5-10.0)
[2024-05-16 05:17] LABS: Alanine Aminotransferase 20 U/L (6-35); Albumin Level 3.8 g/dL (3.5-5.1); Alkaline Phosphatase 92 U/L (38-126); Anion Gap 4 mmol/L (4-12); Aspartate Amino Transferase 43 U/L (14-36); Blood Urea Nitrogen 19 mg/dL (7-17); Calcium 8.7 mg/dL (8.4-10.2); Carbon Dioxide 38 mmol/L (22-30); Chloride 101 mmol/L (98-107); Estimated Glomerular Filt Rate 22; Glucose 108 mg/dL (65-110); Potassium 2.6 mmol/L (3.4-5.0); Sodium 143 mmol/L (137-145)
[2024-05-16 05:19] LABS: NT Pro B Type Natriuretic Pept 5850 pg/mL (19.9-100)
[2024-05-16] MEDS: POTASSIUM CHLORIDE 20 MEQ ER TABLET 40 MEQ PO (06:09)
[2024-05-16] MEDS: POTASSIUM CHLORIDE INJ 40 MEQ in SODIUM CHLORIDE 0.9% IV 500 ML 130 MEQ IVPB (06:51)
[2024-05-16] MEDS: IPRATROPIUM 0.5 MG/ALBUTEROL SULFATE 2.5 MG AMPUL.NEB 3 ML INHALATION ×3 (07:24→21:08)
[2024-05-16] MEDS: allopurinoL 100 MG TABLET PO (09:07)
[2024-05-16] MEDS: calcitrioL 0.25 MCG CAPSULE PO (09:07)
[2024-05-16] MEDS: GABAPENTIN 300 MG CAPSULE PO (09:07)
[2024-05-16] MEDS: LOSARTAN POTASSIUM 25 MG TABLET PO (09:07)
[2024-05-16] MEDS: ATORVASTATIN 40 MG TABLET 80 MG PO (09:07)
[2024-05-16] MEDS: BACLOFEN 10 MG TABLET PO ×2 (09:07→14:04)
[2024-05-16] MEDS: PANTOPRAZOLE 40 MG TABLET PO (09:07)
[2024-05-16] MEDS: METOPROLOL SUCCINATE EXT REL 25 MG TABCR 75 MG PO (09:08)
[2024-05-16] MEDS: FUROSEMIDE INJ 40 MG/4 ML VIAL IV PUSH (09:11)
--- NOTE | 2024-05-16 09:49 | P.PNIM_ITS ---
Progress Note: A&P Assessment and Plan (1) Pneumonia: Code(s): J18.9 - Pneumonia, unspecified organism Status: Acute Assessment and Plan: 05/14/24: * Chest x-ray showing possible pneumonia * Patient started on cefepime and vancomycin * Continue DuoNebs * Patient currently on 2 L nasal cannula which is her baseline * Will check a procalcitonin, mycoplasma, urine strep, urine Legionella * Continue cardiac monitoring * Blood cultures obtained and are pending * Will obtain a sputum culture if possible * Will also check respiratory panel COVID, flu, RSV * Will check MRSA PCR and if negative deescalate the vancomycin * ABG showing mild respiratory acidosis with partial compensation, pH of 7.347, pCO2 52.0, PO2 76.8, bicarb 27.9 * Will give 40 mg IV lasix x1 now and start Lasix 40 mg BID 05/15/24: * Continue diuresis with Lasix 40 mg IV b.i.d. * Continue DuoNeb * Continue cefepime, vancomycin deescalated as MRSA PCR was negative * Blood culture showing no growth preliminary read * Respiratory panel negative for COVID, flu, RSV * Procalcitonin 0.5, mycoplasma, urine strep, urine Legionella all pending * Continue cardiac monitoring 05/16/24: * Will hold Lasix 40 mg IV b.i.d. considering bump in creatinine and net negative fluid balance * Continue DuoNeb * Will transition to levofloxacin today * Blood culture still showing no growth on preliminary read * Continue cardiac monitoring (2) Chronic obstructive pulmonary disease: Code(s): J44.9 - Chronic obstructive pulmonary disease, unspecified Status: Acute Assessment and Plan: 05/14/24: * Currently on 2 L nasal cannula which is her baseline * See above plan of care 05/15/24: * See above plan of care 05/16/24: * Nursing reporting patient seems a bit off , ABG obtained showing hypercapnia without respiratory acidosis * Cpap placed on patient while napping (3) Chronic kidney disease: Code(s): N18.9 - Chronic kidney disease, unspecified Status: Acute Assessment and Plan: 05/14/24: * Creatinine 1.9, EGFR 26 * Baseline creatinine 1.84, EGFR 27 per her primary care doctor's office * she appears to be fluid overloaded on examination. * I will give her a dose of IV Lasix to see if we can improve her kidney function and then schedule Lasix 40 mg IV BID starting tomorrow. 05/15/24: * Creatinine 1.9, EGFR 26 * Continue with current treatment plan 05/16/24: * Creatinine 2.2, EGFR 22-increase likely due to over-diuresis * Will hold Lasix today (4) Hypertension: Code(s): I10 - Essential (primary) hypertension Status: Chronic Assessment and Plan: 05/14/24: * Blood pressure ranging 149/72 to 197/101 * Continue losartan 05/15/24: * No change to current treatment plan (5) Obstructive sleep apnea: Code(s): G47.33 - Obstructive sleep apnea (adult) (pediatric) Status: Acute Assessment and Plan: 05/14/24: * CPAP at night 05/15/24: * No change to current treatment plan (6) Atrial fibrillation: Code(s): I48.91 - Unspecified atrial fibrillation Status: Chronic Assessment and Plan: 05/14/24: * Continue Xarelto and metoprolol * EKG shows AFib with RVR with a rate of 112 05/15/24: * Heart rate 100-119 * No change to current treatment plan 05/16/24: * Heart rate 60s to 70s * Metoprolol increased to 75 mg per Cardiology * Cardiology following * Continue Xarelto (7) Hyperlipidemia: Code(s): E78.5 - Hyperlipidemia, unspecified
--- NOTE | 2024-05-16 09:49 | PM.IMPN ---
Progress Note: A&P Assessment and Plan (1) Pneumonia: Code(s): J18.9 - Pneumonia, unspecified organism Status: Acute Assessment and Plan: 05/14/24: Chest x-ray showing possible pneumonia Patient started on cefepime and vancomycin Continue DuoNebs Patient currently on 2 L nasal cannula which is her baseline Will check a procalcitonin, mycoplasma, urine strep, urine Legionella Continue cardiac monitoring Blood cultures obtained and are pending Will obtain a sputum culture if possible Will also check respiratory panel COVID, flu, RSV Will check MRSA PCR and if negative deescalate the vancomycin ABG showing mild respiratory acidosis with partial compensation, pH of 7.347, pCO2 52.0, PO2 76.8, bicarb 27.9 Will give 40 mg IV lasix x1 now and start Lasix 40 mg BID 05/15/24: Continue diuresis with Lasix 40 mg IV b.i.d. Continue DuoNeb Continue cefepime, vancomycin deescalated as MRSA PCR was negative Blood culture showing no growth preliminary read Respiratory panel negative for COVID, flu, RSV Procalcitonin 0.5, mycoplasma, urine strep, urine Legionella all pending Continue cardiac monitoring 05/16/24: Will hold Lasix 40 mg IV b.i.d. considering bump in creatinine and net negative fluid balance Continue DuoNeb Will transition to levofloxacin today Blood culture still showing no growth on preliminary read Continue cardiac monitoring (2) Chronic obstructive pulmonary disease: Code(s): J44.9 - Chronic obstructive pulmonary disease, unspecified Status: Acute Assessment and Plan: 05/14/24: Currently on 2 L nasal cannula which is her baseline See above plan of care 05/15/24: See above plan of care 05/16/24: Nursing reporting patient seems a bit off , ABG obtained showing hypercapnia without respiratory acidosis Cpap placed on patient while napping (3) Chronic kidney disease: Code(s): N18.9 - Chronic kidney disease, unspecified Status: Acute Assessment and Plan: 05/14/24: Creatinine 1.9, EGFR 26 Baseline creatinine 1.84, EGFR 27 per her primary care doctor's office she appears to be fluid overloaded on examination. I will give her a dose of IV Lasix to see if we can improve her kidney function and then schedule Lasix 40 mg IV BID starting tomorrow. 05/15/24: Creatinine 1.9, EGFR 26 Continue with current treatment plan 05/16/24: Creatinine 2.2, EGFR 22-increase likely due to over-diuresis Will hold Lasix today (4) Hypertension: Code(s): I10 - Essential (primary) hypertension Status: Chronic Assessment and Plan: 05/14/24: Blood pressure ranging 149/72 to 197/101 Continue losartan 05/15/24: No change to current treatment plan (5) Obstructive sleep apnea: Code(s): G47.33 - Obstructive sleep apnea (adult) (pediatric) Status: Acute Assessment and Plan: 05/14/24: CPAP at night 05/15/24: No change to current treatment plan (6) Atrial fibrillation: Code(s): I48.91 - Unspecified atrial fibrillation Status: Chronic Assessment and Plan: 05/14/24: Continue Xarelto and metoprolol EKG shows AFib with RVR with a rate of 112 05/15/24: Heart rate 100-119 No change to current treatment plan 05/16/24: Heart rate 60s to 70s Metoprolol increased to 75 mg per Cardiology Cardiology following Continue Xarelto (7) Hyperlipidemia: Code(s): E78.5 - Hyperlipidemia, unspecified Status: Chronic Assessment and Plan: 05/14/24: Continue atorvastatin 05/15/24: No change to current treatment plan Time Spent With Patient Time with patient: 25 - 35 minutes Subjective Date/time seen: 05/16/24 09:49 Interval history: 05/14/24: This is a 78-year-old female AFib, CVA, chronic kidney disease, COPD, DVT, GERD, hyperlipidemia, hypertension, sleep apnea, Custl-Htucazgis-Wimnp syndrome who presented to the hospital today with tachypnea and shortness of breath/dyspnea. Pat
[2024-05-16 10:39] LABS: Magnesium 2.4 mg/dL (1.6-2.3)
[2024-05-16 11:52] LABS: Alveolar/Arterial O2 Gradient 34.2 mmHg; HCO3 ABG 37.7 mEq/l (22.0-26.0); Oxygen Content ABG 16.2 %vol (16.0-22.0); Oxygen Saturation ABG 97.8 % (95.0-100.0); Oxyhemoglobin 97.5 % THb (90.0-100.0); Total Hemoglobin 11.7 g/dL (12.0-18.0); pH ABG 7.409 (7.350-7.450)
[2024-05-16 11:55] LABS: Device NASAL CANNULA; Liters per Minute 1.5 LPM; Modified Allen's Test Pass; Site Drawn LEFT RADIAL
[2024-05-16 12:01] LABS: Fractional Inspired Oxygen 26 %
[2024-05-16] MEDS: POTASSIUM CHLORIDE 20 MEQ PACKET (FOR LIQUID) 40 MEQ PO ×2 (12:03→14:04)
--- NOTE | 2024-05-16 13:24 | PM.PNCARD ---
Progress Note: A&P Assessment and Plan (1) Atrial fibrillation: Code(s): I48.91 - Unspecified atrial fibrillation Status: Chronic Assessment and Plan: History of paroxysmal atrial fibrillation. Currently in sinus rhythm. When she goes intro atrial fibrillation, she has intermittent RVR with rate in the 130's with which she is asymptomatic. Increased metoprolol yesterday. She has not had any recurrence of atrial fibrillation in 24 hours. Continue a/c with Xarelto. Continue telemetry. K+ 2.6 today and is being replaced. Furosemide on hold. 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 Needs outpatient follow up with EP. (3) Somnolence: Code(s): R40.0 - Somnolence Status: Acute Assessment and Plan: Check arterial CO2. Management per hospitalist. Subjective Date/time seen: 05/16/24 13:24 Interval history: Cardiology follow up for atrial fibrillation Date of service 05/16/2024: She is somnolent today. RN and patient's son at the bedside state she has been somnolent most of the morning but worsened after physical therapy. Patient's son says she does this sometimes at home. Review of Systems Review of Systems: All systems reviewed & are unremarkable except as noted in HPI and below Exam Const: General: comfortable and no acute distress; No awake Orientation/consciousness: patient oriented x3 Other: Chronically ill-appearing HENMT: Head: normal to inspection Eyes: General: appearance normal, both eyes and all related structures Pupils: Equal, round and reactive pupils present Neck: Neck: normal visual inspection, supple and no JVD Carotids: normal carotid upstroke Resp: Effort & Inspection: normal respiratory effort Auscultation: clear to auscultation bilaterally Cardio: Rate: regular rate Rhythm: regular rhythm Heart sounds: S1 normal heart sound present, S2 normal heart sound present and no murmurs GI: Auscultation: normal bowel sounds Urinary Catheter: Urinary Catheter: patent and draining Skin: General skin exam: normal color Neuro: General: No patient oriented x3 Cranial nerves: Yes Equal, round and reactive pupils present Extrem: General: edema Psych: Appearance: grossly normal Mental Status: mental status grossly normal Objective Data Vital Signs Vital Signs: Vital Signs - 24 hr 05/15/24 13:29 05/15/24 13:54 05/15/24 16:00 Temperature Pulse Rate 62 58 L Respiratory Rate 20 Blood Pressure Pulse Oximetry Oxygen Delivery Nasal Cannula Oxygen Flow Rate 2 Fraction of Inspired Oxygen 05/15/24 16:00 05/15/24 20:00 05/15/24 20:14 Temperature 36.6 C 36.4 C Pulse Rate 72 63 59 L Respiratory Rate 18 18 22 H Blood Pressure 118/56 L 112/54 L Pulse Oximetry 98 98 Oxygen Delivery Oxygen Flow Rate Fraction of Inspired Oxygen 05/15/24 20:18 05/15/24 20:23 05/15/24 20:00 Temperature Pulse Rate 63 58 L Respiratory Rate 22 H Blood Pressure Pulse Oximetry 97 Oxygen Delivery Nasal Cannula Oxygen Flow Rate 2 Fraction of Inspired Oxygen 28 05/15/24 21:00 05/15/24 23:42 05/15/24 22:25 Temperature 36.7 C Pulse Rate 65 51 L Respiratory Rate 18 24 H Blood Pressure 141/73 H Pulse Oximetry 94 94 96 Oxygen Delivery Room Air BiPAP Oxygen Flow Rate Fraction of Inspired Oxygen 05/16/24 00:00 05/16/24 02:20 05/16/24 03:56 Temperature 36.7 C Pulse Rate 66 59 L 71 Respiratory Rate 18 Blood Pressure 167/79 H Pulse Oximetry 95 97 Oxygen Delivery BiPAP Oxygen Flow Rate Fraction of Inspired Oxygen 05/16/24 03:56 05/16/24 04:00 05/16/24 07:25 Temperature Pulse Rate 64 Respiratory Rate Blood Pressure Pulse Oximetry 97 97 Oxygen Delivery Nasal Cannula Nasal Cannula Oxygen Flow Rate 2 2 Fraction of Inspired Oxygen
[2024-05-16 18:38] LABS: Alveolar/Arterial O2 Gradient 77.9 mmHg; Base Excess ABG 9.1 mEq/l (+/-2.0); Fractional Inspired Oxygen 28 %; HCO3 ABG 35.3 mEq/l (22.0-26.0); Oxygen Content ABG 15.5 %vol (16.0-22.0); Oxygen Saturation ABG 88.8 % (95.0-100.0); Oxyhemoglobin 89.7 % THb (90.0-100.0); PO2 ABG 55.7 mmHg (80.0-100.0); PO2 FiO2 Ratio Arterial Blood 1.99 %; Total Hemoglobin 12.3 g/dL (12.0-18.0); pH ABG 7.418 (7.350-7.450)
[2024-05-16 18:41] LABS: Device NASAL CANNULA; Site Drawn RIGHT BRACHIAL
[2024-05-17] VITALS (28 sets, daily range): BP systolic 142–161; BP diastolic 65–94; PULSE 47–79; RESP 15–25; TEMP 35.9–37.2; O2SAT 95–100
[2024-05-17] MEDS: IPRATROPIUM 0.5 MG/ALBUTEROL SULFATE 2.5 MG AMPUL.NEB 3 ML INHALATION ×4 (02:07→20:57)
[2024-05-17 05:21] LABS: Basophils Percent Auto 0.5 % (0.2-1.2); Eosinophils Percent Auto 0.3 % (0-4.4); Hematocrit 40.8 % (37.0-47.0); Hemoglobin 12.2 g/dL (12.0-15.0); Immature Granulocyte Absolute 0.04 K/mm3 (0.00-0.031); Immature Granulocyte Percent A 0.7 % (0-0.5); Lymphocytes Absolute Auto 1.04 K/mm3 (0.9-3.2); Lymphocytes Percent Auto 17.8 % (18.3-44.2); Mean Corpuscular HGB Conc 29.9 g/dl (32-36); Mean Corpuscular Hemoglobin 28.8 pg (26-34); Mean Corpuscular Volume 96.5 fl (80-100); Monocytes Absolute Auto 0.6 K/mm3 (0.1-0.6); Monocytes Percent Auto 9.9 % (2.6-8.5); Neutrophils Absolute Auto 4.1 K/mm3 (1.3-6.7); Neutrophils Percent Auto 70.8 % (45.5-73.1); Platelet Count Result 164 k/mm3 (150-375); Red Blood Count 4.23 M/mm3 (4.2-5.4); Red Cell Distribution Width 14.8 % (11.5-14.5); White Blood Count 5.9 K/mm3 (4.5-10.0)
[2024-05-17 05:33] LABS: Alanine Aminotransferase 26 U/L (6-35); Albumin Level 4.2 g/dL (3.5-5.1); Alkaline Phosphatase 89 U/L (38-126); Anion Gap 5 mmol/L (4-12); Aspartate Amino Transferase 57 U/L (14-36); Bilirubin,Total 1.1 mg/dL (0.2-1.3); Blood Urea Nitrogen 21 mg/dL (7-17); Calcium 8.8 mg/dL (8.4-10.2); Carbon Dioxide 34 mmol/L (22-30); Chloride 104 mmol/L (98-107); Estimated Glomerular Filt Rate 23; Glucose 93 mg/dL (65-110); Potassium 4.7 mmol/L (3.4-5.0); Sodium 143 mmol/L (137-145)
[2024-05-17] MEDS: ATORVASTATIN 40 MG TABLET 80 MG PO (09:00)
[2024-05-17] MEDS: GABAPENTIN 300 MG CAPSULE PO (09:00)
[2024-05-17] MEDS: calcitrioL 0.25 MCG CAPSULE PO ×2 (09:00→16:15)
[2024-05-17] MEDS: LOSARTAN POTASSIUM 25 MG TABLET PO (09:00)
[2024-05-17] MEDS: PANTOPRAZOLE 40 MG TABLET PO (09:00)
[2024-05-17] MEDS: allopurinoL 100 MG TABLET PO (09:00)
[2024-05-17] MEDS: levoFLOXacin 750 MG TABLET PO (09:01)
[2024-05-17] MEDS: METOPROLOL SUCCINATE EXT REL 25 MG TABCR 75 MG PO (09:01)
--- NOTE | 2024-05-17 09:14 | P.PNIM_ITS ---
Progress Note: A&P Assessment and Plan (1) Pneumonia: Code(s): J18.9 - Pneumonia, unspecified organism Status: Acute Assessment and Plan: 05/14/24: * Chest x-ray showing possible pneumonia * Patient started on cefepime and vancomycin * Continue DuoNebs * Patient currently on 2 L nasal cannula which is her baseline * Will check a procalcitonin, mycoplasma, urine strep, urine Legionella * Continue cardiac monitoring * Blood cultures obtained and are pending * Will obtain a sputum culture if possible * Will also check respiratory panel COVID, flu, RSV * Will check MRSA PCR and if negative deescalate the vancomycin * ABG showing mild respiratory acidosis with partial compensation, pH of 7.347, pCO2 52.0, PO2 76.8, bicarb 27.9 * Will give 40 mg IV lasix x1 now and start Lasix 40 mg BID 05/15/24: * Continue diuresis with Lasix 40 mg IV b.i.d. * Continue DuoNeb * Continue cefepime, vancomycin deescalated as MRSA PCR was negative * Blood culture showing no growth preliminary read * Respiratory panel negative for COVID, flu, RSV * Procalcitonin 0.5, mycoplasma, urine strep, urine Legionella all pending * Continue cardiac monitoring 05/16/24: * Will hold Lasix 40 mg IV b.i.d. considering bump in creatinine and net negativ e fluid balance * Continue DuoNeb * Will transition to levofloxacin today * Blood culture still showing no growth on preliminary read * Continue cardiac monitoring 05/17/24: * Blood culture still showing no growth on preliminary read * Continue levofloxacin * Continue DuoNeb * Continue cardiac monitoring * Monitor I and O (2) Chronic obstructive pulmonary disease: Code(s): J44.9 - Chronic obstructive pulmonary disease, unspecified Status: Acute Assessment and Plan: 05/14/24: * Currently on 2 L nasal cannula which is her baseline * See above plan of care 05/15/24: * See above plan of care 05/16/24: * Nursing reporting patient seems a bit off , ABG obtained showing hypercapnia without respiratory acidosis * Bi pap placed on patient while napping 05/17/24: * ABG showing pH of 7.56, pCO2 34.5, PO2 67.7, bicarb 30.2 * Continue BiPAP, decreased bleed in to 2 L (3) Chronic kidney disease: Code(s): N18.9 - Chronic kidney disease, unspecified Status: Acute Assessment and Plan: 05/14/24: * Creatinine 1.9, EGFR 26 * Baseline creatinine 1.84, EGFR 27 per her primary care doctor's office * she appears to be fluid overloaded on examination. * I will give her a dose of IV Lasix to see if we can improve her kidney function and then schedule Lasix 40 mg IV BID starting tomorrow. 05/15/24: * Creatinine 1.9, EGFR 26 * Continue with current treatment plan 05/16/24: * Creatinine 2.2, EGFR 22-increase likely due to over-diuresis * Will hold Lasix today 05/17/24: * Creatinine down to 2.1, EGFR 23 * Continue to hold Lasix * Continue to trend labs * Giving 500ml fluid bolus over 5 hours for hydration (4) Hypertension: Code(s): I10 - Essential (primary) hypertension Status: Chronic Assessment and Plan: 05/14/24: * Blood pressure ranging 149/72 to 197/101 * Continue losartan 05/15/24: * No change to current treatment plan (5) Obstructive sleep apnea: Code(s): G47.33 - Obstructive sleep apnea (adult) (pediatric) Status: Acute Assessment and Plan: 05/14/24: * CPAP at night 05/15/24: * No change to current treatment plan (6) Atrial fibrillation: Code(s): I48.91 - Unspec
--- NOTE | 2024-05-17 09:14 | PM.IMPN ---
Progress Note: A&P Assessment and Plan (1) Pneumonia: Code(s): J18.9 - Pneumonia, unspecified organism Status: Acute Assessment and Plan: 05/14/24: Chest x-ray showing possible pneumonia Patient started on cefepime and vancomycin Continue DuoNebs Patient currently on 2 L nasal cannula which is her baseline Will check a procalcitonin, mycoplasma, urine strep, urine Legionella Continue cardiac monitoring Blood cultures obtained and are pending Will obtain a sputum culture if possible Will also check respiratory panel COVID, flu, RSV Will check MRSA PCR and if negative deescalate the vancomycin ABG showing mild respiratory acidosis with partial compensation, pH of 7.347, pCO2 52.0, PO2 76.8, bicarb 27.9 Will give 40 mg IV lasix x1 now and start Lasix 40 mg BID 05/15/24: Continue diuresis with Lasix 40 mg IV b.i.d. Continue DuoNeb Continue cefepime, vancomycin deescalated as MRSA PCR was negative Blood culture showing no growth preliminary read Respiratory panel negative for COVID, flu, RSV Procalcitonin 0.5, mycoplasma, urine strep, urine Legionella all pending Continue cardiac monitoring 05/16/24: Will hold Lasix 40 mg IV b.i.d. considering bump in creatinine and net negative fluid balance Continue DuoNeb Will transition to levofloxacin today Blood culture still showing no growth on preliminary read Continue cardiac monitoring 05/17/24: Blood culture still showing no growth on preliminary read Continue levofloxacin Continue DuoNeb Continue cardiac monitoring Monitor I and O (2) Chronic obstructive pulmonary disease: Code(s): J44.9 - Chronic obstructive pulmonary disease, unspecified Status: Acute Assessment and Plan: 05/14/24: Currently on 2 L nasal cannula which is her baseline See above plan of care 05/15/24: See above plan of care 05/16/24: Nursing reporting patient seems a bit off , ABG obtained showing hypercapnia without respiratory acidosis Bi pap placed on patient while napping 05/17/24: ABG showing pH of 7.56, pCO2 34.5, PO2 67.7, bicarb 30.2 Continue BiPAP, decreased bleed in to 2 L (3) Chronic kidney disease: Code(s): N18.9 - Chronic kidney disease, unspecified Status: Acute Assessment and Plan: 05/14/24: Creatinine 1.9, EGFR 26 Baseline creatinine 1.84, EGFR 27 per her primary care doctor's office she appears to be fluid overloaded on examination. I will give her a dose of IV Lasix to see if we can improve her kidney function and then schedule Lasix 40 mg IV BID starting tomorrow. 05/15/24: Creatinine 1.9, EGFR 26 Continue with current treatment plan 05/16/24: Creatinine 2.2, EGFR 22-increase likely due to over-diuresis Will hold Lasix today 05/17/24: Creatinine down to 2.1, EGFR 23 Continue to hold Lasix Continue to trend labs Giving 500ml fluid bolus over 5 hours for hydration (4) Hypertension: Code(s): I10 - Essential (primary) hypertension Status: Chronic Assessment and Plan: 05/14/24: Blood pressure ranging 149/72 to 197/101 Continue losartan 05/15/24: No change to current treatment plan (5) Obstructive sleep apnea: Code(s): G47.33 - Obstructive sleep apnea (adult) (pediatric) Status: Acute Assessment and Plan: 05/14/24: CPAP at night 05/15/24: No change to current treatment plan (6) Atrial fibrillation: Code(s): I48.91 - Unspecified atrial fibrillation Status: Chronic Assessment and Plan: 05/14/24: Continue Xarelto and metoprolol EKG shows AFib with RVR with a rate of 112 05/15/24: Heart rate 100-119 No change to current treatment plan 05/16/24: Heart rate 60s to 70s Metoprolol increased to 75 mg per Cardiology Cardiology following Continue Xarelto 05/17/24: No change to current treatment plan (7) Hyperlipidemia: Code(s): E78.5 - Hyperlipidemia, unspecified Status: Chronic Assessm
[2024-05-17 10:18] LABS: Alveolar/Arterial O2 Gradient 120.1 mmHg; Base Excess ABG 7.8 mEq/l (+/-2.0); Fractional Inspired Oxygen 32 %; HCO3 ABG 30.2 mEq/l (22.0-26.0); Oxygen Content ABG 17.1 %vol (16.0-22.0); Oxygen Saturation ABG 95.7 % (95.0-100.0); Oxyhemoglobin 95.1 % THb (90.0-100.0); PCO2 ABG 34.5 mmHg (35.0-45.0); PO2 ABG 67.7 mmHg (80.0-100.0); PO2 FiO2 Ratio Arterial Blood 2.12 %; Total Hemoglobin 12.8 g/dL (12.0-18.0)
[2024-05-17 10:20] LABS: Modified Allen's Test Pass; Site Drawn LEFT RADIAL
[2024-05-17 10:21] LABS: Device NON-INVASIVE VENT
[2024-05-17] MEDS: RIVAROXABAN 20 MG TABLET PO (16:15)
[2024-05-17] MEDS: SODIUM CHLORIDE 0.9% IV 500 ML 100 ML IV CONT (16:15)
[2024-05-18] VITALS (21 sets, daily range): BP systolic 120–149; BP diastolic 57–80; PULSE 58–88; RESP 14–25; TEMP 36.4–36.9; O2SAT 93–99
[2024-05-18 00:53] LABS: Glucose Point of Care 98 mg/dl (65-105)
[2024-05-18] MEDS: IPRATROPIUM 0.5 MG/ALBUTEROL SULFATE 2.5 MG AMPUL.NEB 3 ML INHALATION ×4 (02:34→20:28)
[2024-05-18 05:16] LABS: Basophils Percent Auto 0.3 % (0.2-1.2); Eosinophils Percent Auto 0.3 % (0-4.4); Hematocrit 34.4 % (37.0-47.0); Hemoglobin 10.8 g/dL (12.0-15.0); Immature Granulocyte Absolute 0.04 K/mm3 (0.00-0.031); Immature Granulocyte Percent A 0.7 % (0-0.5); Lymphocytes Absolute Auto 0.93 K/mm3 (0.9-3.2); Lymphocytes Percent Auto 15.7 % (18.3-44.2); Mean Corpuscular HGB Conc 31.4 g/dl (32-36); Mean Corpuscular Hemoglobin 29.3 pg (26-34); Mean Corpuscular Volume 93.2 fl (80-100); Mean Platelet Volume 10.8 fl (7.4-10.4); Monocytes Absolute Auto 0.5 K/mm3 (0.1-0.6); Monocytes Percent Auto 8.9 % (2.6-8.5); Neutrophils Absolute Auto 4.4 K/mm3 (1.3-6.7); Neutrophils Percent Auto 74.1 % (45.5-73.1); Platelet Count Result 141 k/mm3 (150-375); Red Blood Count 3.69 M/mm3 (4.2-5.4); Red Cell Distribution Width 14.7 % (11.5-14.5); White Blood Count 5.9 K/mm3 (4.5-10.0)
[2024-05-18] MEDS: ONDANSETRON INJ 4 MG/2 ML VIAL IV PUSH (05:25)
[2024-05-18 05:27] LABS: Alanine Aminotransferase 22 U/L (6-35); Albumin Level 3.5 g/dL (3.5-5.1); Alkaline Phosphatase 80 U/L (38-126); Anion Gap 2 mmol/L (4-12); Aspartate Amino Transferase 43 U/L (14-36); Bilirubin,Total 0.9 mg/dL (0.2-1.3); Blood Urea Nitrogen 24 mg/dL (7-17); Calcium 8.5 mg/dL (8.4-10.2); Carbon Dioxide 31 mmol/L (22-30); Chloride 108 mmol/L (98-107); Estimated Glomerular Filt Rate 27; Glucose 81 mg/dL (65-110); Potassium 3.7 mmol/L (3.4-5.0); Sodium 141 mmol/L (137-145)
[2024-05-18 06:25] LABS: Glucose Point of Care 76 mg/dl (65-105)
[2024-05-18] MEDS: ACETAMINOPHEN 325 MG TABLET 650 MG PO ×2 (07:01→13:58)
[2024-05-18] MEDS: ATORVASTATIN 40 MG TABLET 80 MG PO (09:32)
[2024-05-18] MEDS: allopurinoL 100 MG TABLET PO (09:32)
[2024-05-18] MEDS: LOSARTAN POTASSIUM 25 MG TABLET PO (09:32)
[2024-05-18] MEDS: calcitrioL 0.25 MCG CAPSULE PO ×2 (09:32→17:37)
[2024-05-18] MEDS: levoFLOXacin 750 MG TABLET PO (09:32)
[2024-05-18] MEDS: METOPROLOL SUCCINATE EXT REL 25 MG TABCR 75 MG PO (09:33)
[2024-05-18] MEDS: PANTOPRAZOLE 40 MG TABLET PO (09:34)
[2024-05-18] MEDS: DICLOFENAC SODIUM 1% 100 GM GEL (*BKC) 1 APPLIC TOPICAL ×3 (14:00→21:56)
[2024-05-18] MEDS: RIVAROXABAN 20 MG TABLET PO (17:37)
[2024-05-19] VITALS (20 sets, daily range): BP systolic 119–145; BP diastolic 60–64; PULSE 53–72; RESP 16–25; TEMP 36.3–36.9; O2SAT 90–100
[2024-05-19] MEDS: ACETAMINOPHEN 325 MG TABLET 650 MG PO ×2 (00:37→09:58)
[2024-05-19] MEDS: polyethylene glycoL 3350 17 GM POWD.PACK PO (00:38)
[2024-05-19] MEDS: IPRATROPIUM 0.5 MG/ALBUTEROL SULFATE 2.5 MG AMPUL.NEB 3 ML INHALATION ×4 (01:19→20:45)
[2024-05-19 06:36] LABS: Basophils Percent Auto 0.4 % (0.2-1.2); Eosinophils Percent Auto 0.2 % (0-4.4); Hematocrit 35.6 % (37.0-47.0); Hemoglobin 10.6 g/dL (12.0-15.0); Immature Granulocyte Absolute 0.03 K/mm3 (0.00-0.031); Immature Granulocyte Percent A 0.6 % (0-0.5); Immature Platelet Fraction Pct 6.1 % (0.9-11.2); Lymphocytes Absolute Auto 0.85 K/mm3 (0.9-3.2); Lymphocytes Percent Auto 16.7 % (18.3-44.2); Mean Corpuscular HGB Conc 29.8 g/dl (32-36); Mean Corpuscular Volume 97.5 fl (80-100); Monocytes Absolute Auto 0.6 K/mm3 (0.1-0.6); Neutrophils Absolute Auto 3.6 K/mm3 (1.3-6.7); Neutrophils Percent Auto 71.1 % (45.5-73.1); Platelet Count Result 88 k/mm3 (150-375); Red Blood Count 3.65 M/mm3 (4.2-5.4); Red Cell Distribution Width 14.6 % (11.5-14.5); White Blood Count 5.1 K/mm3 (4.5-10.0)
[2024-05-19 06:52] LABS: Alanine Aminotransferase 20 U/L (6-35); Albumin Level 3.5 g/dL (3.5-5.1); Alkaline Phosphatase 75 U/L (38-126); Anion Gap 4 mmol/L (4-12); Aspartate Amino Transferase 43 U/L (14-36); Bilirubin,Total 0.8 mg/dL (0.2-1.3); Blood Urea Nitrogen 30 mg/dL (7-17); Calcium 8.5 mg/dL (8.4-10.2); Carbon Dioxide 28 mmol/L (22-30); Chloride 106 mmol/L (98-107); Estimated Glomerular Filt Rate 26; Glucose 103 mg/dL (65-110); Potassium 3.9 mmol/L (3.4-5.0); Sodium 138 mmol/L (137-145)
[2024-05-19] MEDS: ATORVASTATIN 40 MG TABLET 80 MG PO (09:46)
[2024-05-19] MEDS: METOPROLOL SUCCINATE EXT REL 25 MG TABCR 75 MG PO (09:47)
[2024-05-19] MEDS: allopurinoL 100 MG TABLET PO (09:49)
[2024-05-19] MEDS: ERGOCALCIFEROL 50,000 UNITS CAPSULE 50000 UNITS PO (09:49)
[2024-05-19] MEDS: LOSARTAN POTASSIUM 25 MG TABLET PO (09:49)
[2024-05-19] MEDS: PANTOPRAZOLE 40 MG TABLET PO (09:49)
[2024-05-19] MEDS: DICLOFENAC SODIUM 1% 100 GM GEL (*BKC) 1 APPLIC TOPICAL ×4 (09:50→21:16)
[2024-05-19] MEDS: calcitrioL 0.25 MCG CAPSULE PO ×2 (09:50→16:51)
--- NOTE | 2024-05-19 13:54 | P.PNIM_ITS ---
Progress Note: A&P Assessment and Plan (1) Pneumonia: Code(s): J18.9 - Pneumonia, unspecified organism Status: Acute Assessment and Plan: 05/14/24: * Chest x-ray showing possible pneumonia * Patient started on cefepime and vancomycin * Continue DuoNebs * Patient currently on 2 L nasal cannula which is her baseline * Will check a procalcitonin, mycoplasma, urine strep, urine Legionella * Continue cardiac monitoring * Blood cultures obtained and are pending * Will obtain a sputum culture if possible * Will also check respiratory panel COVID, flu, RSV * Will check MRSA PCR and if negative deescalate the vancomycin * ABG showing mild respiratory acidosis with partial compensation, pH of 7.347, pCO2 52.0, PO2 76.8, bicarb 27.9 * Will give 40 mg IV lasix x1 now and start Lasix 40 mg BID 05/15/24: * Continue diuresis with Lasix 40 mg IV b.i.d. * Continue DuoNeb * Continue cefepime, vancomycin deescalated as MRSA PCR was negative * Blood culture showing no growth preliminary read * Respiratory panel negative for COVID, flu, RSV * Procalcitonin 0.5, mycoplasma, urine strep, urine Legionella all pending * Continue cardiac monitoring 05/16/24: * Will hold Lasix 40 mg IV b.i.d. considering bump in creatinine and net negativ e fluid balance * Continue DuoNeb * Will transition to levofloxacin today * Blood culture still showing no growth on preliminary read * Continue cardiac monitoring 05/17/24: * Blood culture still showing no growth on preliminary read * Continue levofloxacin * Continue DuoNeb * Continue cardiac monitoring * Monitor I and O 05/19/24: * Blood culture still showing no growth to date on preliminary read * PT and OT * Case coordination working on rehab placement (2) Chronic obstructive pulmonary disease: Code(s): J44.9 - Chronic obstructive pulmonary disease, unspecified Status: Acute Assessment and Plan: 05/14/24: * Currently on 2 L nasal cannula which is her baseline * See above plan of care 05/15/24: * See above plan of care 05/16/24: * Nursing reporting patient seems a bit off , ABG obtained showing hypercapnia without respiratory acidosis * Bi pap placed on patient while napping 05/17/24: * ABG showing pH of 7.56, pCO2 34.5, PO2 67.7, bicarb 30.2 * Continue BiPAP, decreased bleed in to 2 L 05/19/24: * Continue with home O2 requirements (3) Chronic kidney disease: Code(s): N18.9 - Chronic kidney disease, unspecified Status: Acute Assessment and Plan: 05/14/24: * Creatinine 1.9, EGFR 26 * Baseline creatinine 1.84, EGFR 27 per her primary care doctor's office * she appears to be fluid overloaded on examination. * I will give her a dose of IV Lasix to see if we can improve her kidney function and then schedule Lasix 40 mg IV BID starting tomorrow. 05/15/24: * Creatinine 1.9, EGFR 26 * Continue with current treatment plan 05/16/24: * Creatinine 2.2, EGFR 22-increase likely due to over-diuresis * Will hold Lasix today 05/17/24: * Creatinine down to 2.1, EGFR 23 * Continue to hold Lasix * Continue to trend labs * Giving 500ml fluid bolus over 5 hours for hydration 05/19/24 * Creatinine 1.9 * No change to current treatment (4) Hypertension: Code(s): I10 - Essential (primary) hypertension Status: Chronic Assessment and Plan: 05/14/24: * Blood pressure ranging 149/72 to 197/101 * Continue losartan 05/15/24: * No change to current treatment plan (5) Obstructive sleep apnea:
--- NOTE | 2024-05-19 13:54 | PM.IMPN ---
Progress Note: A&P Assessment and Plan (1) Pneumonia: Code(s): J18.9 - Pneumonia, unspecified organism Status: Acute Assessment and Plan: 05/14/24: Chest x-ray showing possible pneumonia Patient started on cefepime and vancomycin Continue DuoNebs Patient currently on 2 L nasal cannula which is her baseline Will check a procalcitonin, mycoplasma, urine strep, urine Legionella Continue cardiac monitoring Blood cultures obtained and are pending Will obtain a sputum culture if possible Will also check respiratory panel COVID, flu, RSV Will check MRSA PCR and if negative deescalate the vancomycin ABG showing mild respiratory acidosis with partial compensation, pH of 7.347, pCO2 52.0, PO2 76.8, bicarb 27.9 Will give 40 mg IV lasix x1 now and start Lasix 40 mg BID 05/15/24: Continue diuresis with Lasix 40 mg IV b.i.d. Continue DuoNeb Continue cefepime, vancomycin deescalated as MRSA PCR was negative Blood culture showing no growth preliminary read Respiratory panel negative for COVID, flu, RSV Procalcitonin 0.5, mycoplasma, urine strep, urine Legionella all pending Continue cardiac monitoring 05/16/24: Will hold Lasix 40 mg IV b.i.d. considering bump in creatinine and net negative fluid balance Continue DuoNeb Will transition to levofloxacin today Blood culture still showing no growth on preliminary read Continue cardiac monitoring 05/17/24: Blood culture still showing no growth on preliminary read Continue levofloxacin Continue DuoNeb Continue cardiac monitoring Monitor I and O 05/19/24: Blood culture still showing no growth to date on preliminary read PT and OT Case coordination working on rehab placement (2) Chronic obstructive pulmonary disease: Code(s): J44.9 - Chronic obstructive pulmonary disease, unspecified Status: Acute Assessment and Plan: 05/14/24: Currently on 2 L nasal cannula which is her baseline See above plan of care 05/15/24: See above plan of care 05/16/24: Nursing reporting patient seems a bit off , ABG obtained showing hypercapnia without respiratory acidosis Bi pap placed on patient while napping 05/17/24: ABG showing pH of 7.56, pCO2 34.5, PO2 67.7, bicarb 30.2 Continue BiPAP, decreased bleed in to 2 L 05/19/24: Continue with home O2 requirements (3) Chronic kidney disease: Code(s): N18.9 - Chronic kidney disease, unspecified Status: Acute Assessment and Plan: 05/14/24: Creatinine 1.9, EGFR 26 Baseline creatinine 1.84, EGFR 27 per her primary care doctor's office she appears to be fluid overloaded on examination. I will give her a dose of IV Lasix to see if we can improve her kidney function and then schedule Lasix 40 mg IV BID starting tomorrow. 05/15/24: Creatinine 1.9, EGFR 26 Continue with current treatment plan 05/16/24: Creatinine 2.2, EGFR 22-increase likely due to over-diuresis Will hold Lasix today 05/17/24: Creatinine down to 2.1, EGFR 23 Continue to hold Lasix Continue to trend labs Giving 500ml fluid bolus over 5 hours for hydration 05/19/24 Creatinine 1.9 No change to current treatment (4) Hypertension: Code(s): I10 - Essential (primary) hypertension Status: Chronic Assessment and Plan: 05/14/24: Blood pressure ranging 149/72 to 197/101 Continue losartan 05/15/24: No change to current treatment plan (5) Obstructive sleep apnea: Code(s): G47.33 - Obstructive sleep apnea (adult) (pediatric) Status: Acute Assessment and Plan: 05/14/24: CPAP at night 05/15/24: No change to current treatment plan (6) Atrial fibrillation: Code(s): I48.91 - Unspecified atrial fibrillation Status: Chronic Assessment and Plan: 05/14/24: Continue Xarelto and metoprolol EKG shows AFib with RVR with a rate of 112 05/15/24: Heart rate 100-119 No change to current treatment plan 05/16/24: Heart rate 60s to 70s Met
[2024-05-19] MEDS: BISACODYL 5 MG TABLET EC PO (14:13)
[2024-05-19] MEDS: RIVAROXABAN 20 MG TABLET PO (16:51)
[2024-05-19 17:16] LABS: Glucose Point of Care 110 mg/dl (65-105)
[2024-05-19] MEDS: ONDANSETRON INJ 4 MG/2 ML VIAL IV PUSH (17:52)
[2024-05-19 18:29] LABS: Pneumococcal Antigen Urine NOT DETECTED
[2024-05-20] VITALS (21 sets, daily range): BP systolic 132–155; BP diastolic 60–70; PULSE 56–65; RESP 14–18; TEMP 36.4–36.8; O2SAT 96–100
[2024-05-20] MEDS: ONDANSETRON INJ 4 MG/2 ML VIAL IV PUSH
[2024-05-20] MEDS: IPRATROPIUM 0.5 MG/ALBUTEROL SULFATE 2.5 MG AMPUL.NEB 3 ML INHALATION ×4 (02:05→19:27)
[2024-05-20 02:33] LABS: Legionella pneumophila Ag Ur NOT DETECTED
[2024-05-20 05:49] LABS: Basophils Percent Auto 0.3 % (0.2-1.2); Eosinophils Percent Auto 0.4 % (0-4.4); Hemoglobin 11.4 g/dL (12.0-15.0); Immature Granulocyte Absolute 0.05 K/mm3 (0.00-0.031); Immature Granulocyte Percent A 0.7 % (0-0.5); Lymphocytes Absolute Auto 1.14 K/mm3 (0.9-3.2); Lymphocytes Percent Auto 16.9 % (18.3-44.2); Mean Corpuscular HGB Conc 30.8 g/dl (32-36); Mean Corpuscular Hemoglobin 28.9 pg (26-34); Mean Corpuscular Volume 93.7 fl (80-100); Monocytes Absolute Auto 0.6 K/mm3 (0.1-0.6); Monocytes Percent Auto 9.2 % (2.6-8.5); Neutrophils Absolute Auto 4.9 K/mm3 (1.3-6.7); Neutrophils Percent Auto 72.5 % (45.5-73.1); Platelet Count Result 147 k/mm3 (150-375); Red Blood Count 3.95 M/mm3 (4.2-5.4); Red Cell Distribution Width 14.5 % (11.5-14.5); White Blood Count 6.7 K/mm3 (4.5-10.0)
[2024-05-20 06:00] LABS: Alanine Aminotransferase 23 U/L (6-35); Albumin Level 3.7 g/dL (3.5-5.1); Alkaline Phosphatase 94 U/L (38-126); Anion Gap 4 mmol/L (4-12); Aspartate Amino Transferase 47 U/L (14-36); Bilirubin,Total 0.7 mg/dL (0.2-1.3); Blood Urea Nitrogen 23 mg/dL (7-17); Carbon Dioxide 32 mmol/L (22-30); Chloride 105 mmol/L (98-107); Estimated Glomerular Filt Rate 26; Glucose 108 mg/dL (65-110); Potassium 3.9 mmol/L (3.4-5.0); Sodium 141 mmol/L (137-145)
--- NOTE | 2024-05-20 07:06 | P.PNIM_ITS ---
Progress Note: A&P Assessment and Plan (1) Pneumonia: Code(s): J18.9 - Pneumonia, unspecified organism Status: Acute Assessment and Plan: 05/14/24: * Chest x-ray showing possible pneumonia * Patient started on cefepime and vancomycin * Continue DuoNebs * Patient currently on 2 L nasal cannula which is her baseline * Will check a procalcitonin, mycoplasma, urine strep, urine Legionella * Continue cardiac monitoring * Blood cultures obtained and are pending * Will obtain a sputum culture if possible * Will also check respiratory panel COVID, flu, RSV * Will check MRSA PCR and if negative deescalate the vancomycin * ABG showing mild respiratory acidosis with partial compensation, pH of 7.347, pCO2 52.0, PO2 76.8, bicarb 27.9 * Will give 40 mg IV lasix x1 now and start Lasix 40 mg BID 05/15/24: * Continue diuresis with Lasix 40 mg IV b.i.d. * Continue DuoNeb * Continue cefepime, vancomycin deescalated as MRSA PCR was negative * Blood culture showing no growth preliminary read * Respiratory panel negative for COVID, flu, RSV * Procalcitonin 0.5, mycoplasma, urine strep, urine Legionella all pending * Continue cardiac monitoring 05/16/24: * Will hold Lasix 40 mg IV b.i.d. considering bump in creatinine and net negativ e fluid balance * Continue DuoNeb * Will transition to levofloxacin today * Blood culture still showing no growth on preliminary read * Continue cardiac monitoring 05/17/24: * Blood culture still showing no growth on preliminary read * Continue levofloxacin * Continue DuoNeb * Continue cardiac monitoring * Monitor I and O 05/19/24: * Blood culture still showing no growth to date on preliminary read * PT and OT * Case coordination working on rehab placement 05/20/24: * No change to current treatment plan * Awaiting placement (2) Chronic obstructive pulmonary disease: Code(s): J44.9 - Chronic obstructive pulmonary disease, unspecified Status: Acute Assessment and Plan: 05/14/24: * Currently on 2 L nasal cannula which is her baseline * See above plan of care 05/15/24: * See above plan of care 05/16/24: * Nursing reporting patient seems a bit off , ABG obtained showing hypercapnia without respiratory acidosis * Bi pap placed on patient while napping 05/17/24: * ABG showing pH of 7.56, pCO2 34.5, PO2 67.7, bicarb 30.2 * Continue BiPAP, decreased bleed in to 2 L 05/19/24: * Continue with current treatment plan (3) Chronic kidney disease: Code(s): N18.9 - Chronic kidney disease, unspecified Status: Acute Assessment and Plan: 05/14/24: * Creatinine 1.9, EGFR 26 * Baseline creatinine 1.84, EGFR 27 per her primary care doctor's office * she appears to be fluid overloaded on examination. * I will give her a dose of IV Lasix to see if we can improve her kidney function and then schedule Lasix 40 mg IV BID starting tomorrow. 05/15/24: * Creatinine 1.9, EGFR 26 * Continue with current treatment plan 05/16/24: * Creatinine 2.2, EGFR 22-increase likely due to over-diuresis * Will hold Lasix today 05/17/24: * Creatinine down to 2.1, EGFR 23 * Continue to hold Lasix * Continue to trend labs * Giving 500ml fluid bolus over 5 hours for hydration 05/19/24 * Creatinine 1.9 * No change to current treatment 05/20/24: * No change to current treatment plan (4) Hypertension: Code(s): I10 - Essential (primary) hypertension Status: Chronic Assessment and Plan: 05/14/24: * Blood pressure ra
--- NOTE | 2024-05-20 07:06 | PM.IMPN ---
Progress Note: A&P Assessment and Plan (1) Pneumonia: Code(s): J18.9 - Pneumonia, unspecified organism Status: Acute Assessment and Plan: 05/14/24: Chest x-ray showing possible pneumonia Patient started on cefepime and vancomycin Continue DuoNebs Patient currently on 2 L nasal cannula which is her baseline Will check a procalcitonin, mycoplasma, urine strep, urine Legionella Continue cardiac monitoring Blood cultures obtained and are pending Will obtain a sputum culture if possible Will also check respiratory panel COVID, flu, RSV Will check MRSA PCR and if negative deescalate the vancomycin ABG showing mild respiratory acidosis with partial compensation, pH of 7.347, pCO2 52.0, PO2 76.8, bicarb 27.9 Will give 40 mg IV lasix x1 now and start Lasix 40 mg BID 05/15/24: Continue diuresis with Lasix 40 mg IV b.i.d. Continue DuoNeb Continue cefepime, vancomycin deescalated as MRSA PCR was negative Blood culture showing no growth preliminary read Respiratory panel negative for COVID, flu, RSV Procalcitonin 0.5, mycoplasma, urine strep, urine Legionella all pending Continue cardiac monitoring 05/16/24: Will hold Lasix 40 mg IV b.i.d. considering bump in creatinine and net negative fluid balance Continue DuoNeb Will transition to levofloxacin today Blood culture still showing no growth on preliminary read Continue cardiac monitoring 05/17/24: Blood culture still showing no growth on preliminary read Continue levofloxacin Continue DuoNeb Continue cardiac monitoring Monitor I and O 05/19/24: Blood culture still showing no growth to date on preliminary read PT and OT Case coordination working on rehab placement 05/20/24: No change to current treatment plan Awaiting placement (2) Chronic obstructive pulmonary disease: Code(s): J44.9 - Chronic obstructive pulmonary disease, unspecified Status: Acute Assessment and Plan: 05/14/24: Currently on 2 L nasal cannula which is her baseline See above plan of care 05/15/24: See above plan of care 05/16/24: Nursing reporting patient seems a bit off , ABG obtained showing hypercapnia without respiratory acidosis Bi pap placed on patient while napping 05/17/24: ABG showing pH of 7.56, pCO2 34.5, PO2 67.7, bicarb 30.2 Continue BiPAP, decreased bleed in to 2 L 05/19/24: Continue with current treatment plan (3) Chronic kidney disease: Code(s): N18.9 - Chronic kidney disease, unspecified Status: Acute Assessment and Plan: 05/14/24: Creatinine 1.9, EGFR 26 Baseline creatinine 1.84, EGFR 27 per her primary care doctor's office she appears to be fluid overloaded on examination. I will give her a dose of IV Lasix to see if we can improve her kidney function and then schedule Lasix 40 mg IV BID starting tomorrow. 05/15/24: Creatinine 1.9, EGFR 26 Continue with current treatment plan 05/16/24: Creatinine 2.2, EGFR 22-increase likely due to over-diuresis Will hold Lasix today 05/17/24: Creatinine down to 2.1, EGFR 23 Continue to hold Lasix Continue to trend labs Giving 500ml fluid bolus over 5 hours for hydration 05/19/24 Creatinine 1.9 No change to current treatment 05/20/24: No change to current treatment plan (4) Hypertension: Code(s): I10 - Essential (primary) hypertension Status: Chronic Assessment and Plan: 05/14/24: Blood pressure ranging 149/72 to 197/101 Continue losartan 05/15/24: No change to current treatment plan (5) Obstructive sleep apnea: Code(s): G47.33 - Obstructive sleep apnea (adult) (pediatric) Status: Acute Assessment and Plan: 05/14/24: CPAP at night 05/15/24: No change to current treatment plan (6) Atrial fibrillation: Code(s): I48.91 - Unspecified atrial fibrillation Status: Chronic Assessment and Plan: 05/14/24: Continue Xarelto and metoprolol EKG shows AFib with RVR with a rat
[2024-05-20] MEDS: LOSARTAN POTASSIUM 25 MG TABLET PO (09:44)
[2024-05-20] MEDS: DICLOFENAC SODIUM 1% 100 GM GEL (*BKC) 1 APPLIC TOPICAL ×3 (09:44→16:26)
[2024-05-20] MEDS: ATORVASTATIN 40 MG TABLET 80 MG PO (09:44)
[2024-05-20] MEDS: PANTOPRAZOLE 40 MG TABLET PO (09:44)
[2024-05-20] MEDS: BISACODYL 5 MG TABLET EC PO (09:44)
[2024-05-20] MEDS: METOPROLOL SUCCINATE EXT REL 25 MG TABCR 75 MG PO (09:44)
[2024-05-20] MEDS: calcitrioL 0.25 MCG CAPSULE PO ×2 (09:45→16:26)
[2024-05-20] MEDS: allopurinoL 100 MG TABLET PO (09:45)
[2024-05-20 14:21] LABS: SARS-CoV-2 RNA PCR Negative (Negative)
[2024-05-20] MEDS: RIVAROXABAN 20 MG TABLET PO (16:26)
--- NOTE | 2024-05-20 17:05 | PM.DS ---
DS: Admitting Diagnosis Discharge Date 05/20/2024 Admitting Diagnosis Pneumonia COPD Chronic kidney Hypertension RACHELLE AFib Hyperlipidemia DS: Discharge Diagnosis Discharge Diagnosis (1) Pneumonia: Code(s): J18.9 - Pneumonia, unspecified organism Status: Acute (2) Chronic obstructive pulmonary disease: Code(s): J44.9 - Chronic obstructive pulmonary disease, unspecified Status: Acute (3) Chronic kidney disease: Code(s): N18.9 - Chronic kidney disease, unspecified Status: Acute (4) Hypertension: Code(s): I10 - Essential (primary) hypertension Status: Chronic (5) Obstructive sleep apnea: Code(s): G47.33 - Obstructive sleep apnea (adult) (pediatric) Status: Acute (6) Atrial fibrillation: Code(s): I48.91 - Unspecified atrial fibrillation Status: Chronic (7) Hyperlipidemia: Code(s): E78.5 - Hyperlipidemia, unspecified Status: Chronic (8) Altered mental status: Code(s): R41.82 - Altered mental status, unspecified Status: Acute DS: Summary Hospital Course Reason for hospitalization: Pneumonia COPD Chronic kidney Hypertension RACHELLE AFib Hyperlipidemia Hospital Course: This is a 78-year-old female AFib, CVA, chronic kidney disease, COPD, DVT, GERD, hyperlipidemia, hypertension, sleep apnea, [id number] syndrome who presented to the hospital today with tachypnea and shortness of breath/dyspnea. Patient provides the following history. She states that when she was discharged home yesterday she felt pretty decent however through the night she felt that she was becoming more short of breath and was not tolerating her CPAP. [facility] came and seen her in the morning and suggested that she come back to the hospital as her work of breathing continue to look worse through the day. Patient was just admitted and discharged yesterday for CHF/COPD exacerbation however she was improved and feeling better at the time of discharge. During her admission patient was dehydrated and Lasix was held. Patient normally takes 20 mg of Lasix daily and this was also held on discharge. On examination today patient is alert and oriented x3, lying in the bed. She is short of breath at rest. Crackles noted right greater than left. She also has 1 to 2+ pitting edema to bilateral lower extremities. She denies any fever, chills, vomiting, diarrhea, abdominal pain, chest pain. She endorses shortness of breath, and nausea. Workup in hospital today included a chest x-ray which shown prominent markings in the left lung base which could be early pneumonia. Labs today showed white blood cell count of 5.4, hemoglobin 10.8, INR 1.9, potassium 3.3, creatinine 1.9, EGFR 26, proBNP 4770, troponin 0.018. Blood cultures were obtained and pending. Echo from 05/05/2024 was reviewed and showed normal LV systolic function with the estimated EF of 70%, grade 1 diastolic dysfunction. Patient was given DuoNeb breathing treatments, cefepime, and vancomycin while in the ED. She will likely need diuresis. On 05/16/2024 patient started having altered mental status and an ABG showed hypercapnia. Patient was placed back on her BiPAP however this still continued into the next day as the patient was still confused and the hypercapnia corrected. We went ahead and got a head CT which was negative for any acute intracranial findings however showed the old lacunar infarct in the right thalamus. We ended up putting her baclofen and her gabapentin on hold and on 05/18/2024 patient was alert and oriented x3. We did get an MRI of the brain which also show as negative and only showed the old right lacunar infarct. Patient was back to her baseline. Today patient is alert oriented x3, lying in the bed. She is still needing quite a bit of assistance with mobility and has been working with PT and OT. Patient is stable for discharge at this time to SNF. She will need to finish her antibiotic a
--- NOTE | 2024-05-20 20:50 | PC.NURSE ---
Pt discharged to [facility] per [facility]. Family transporting pt belongings and home CPAP to [facility].
== END 2024-05-20 19:55 | DRG 194 ==
LOC: ANHED 13:15 → ANH2MED 13:51
PROVIDERS: Admitting Provider Hospitalist; Emergency Provider Emergency Medicine; PCP Internal Medicine; Visit Provider Nurse Practitioner Acute Care
DX: J18.9 Pneumonia, unspecified organism (principal); I48.20 Chronic atrial fibrillation, unspecified; J44.0 Chronic obstructive pulmonary disease with (acute) lower respiratory infection; J44.1 Chronic obstructive pulmonary disease with (acute) exacerbation; I12.9 Hypertensive chronic kidney disease with stage 1 through stage 4 chronic kidney disease, or unspecified chronic kidney disease; N18.9 Chronic kidney disease, unspecified; G47.33 Obstructive sleep apnea (adult) (pediatric); I48.91 Unspecified atrial fibrillation; E78.5 Hyperlipidemia, unspecified; I45.6 Pre-excitation syndrome; Z86.718 Personal history of other venous thrombosis and embolism; Z86.73 Personal history of transient ischemic attack (TIA), and cerebral infarction without residual deficits; Z90.710 Acquired absence of both cervix and uterus; Z20.822 Contact with and (suspected) exposure to COVID-19
CPT/HCPCS: 36415; 36600; 70450; 70551; 71045; 71046; 80053; 81001; 82805; 82948; 83605; 83735; 83880; 84145; 84484; 85025; 85055; 85610; 85730; 86140; 86738; 87040; 87449; 87635; 87637; 87641; 87899; 93005; 94640; 97110; 97161; 97165; 97530; 97535; 99285; A9270; J0692; J1940; J2405; J3370; J3480; J7040